=== PATIENT | male | born 1950 | race Caucasian/White ===

== ENCOUNTER → 2018-01-26 | Outpatient (CLI) | payer MEDICARE, BC, OTHER ==
[2018-01-26 11:06] LABS: Potassium 4.3 mmol/L (3.5-5.1)
== END | disposition home or self-care (01) ==
LOC: LABWHC1 10:23
PROVIDERS: ATTEND Internal Medicine Clinical Cardiac Electrophysiology
DX: I10 Essential (primary) hypertension (principal); E11.9 Type 2 diabetes mellitus without complications
CPT/HCPCS: 36415; 80048; 80061

== ENCOUNTER → 2018-02-19 | Outpatient (CLI) | payer MEDICARE, OTHER ==
[2018-02-19 15:33] LABS: Calcium 9.2 mg/dL (8.4-10.2); Potassium 4.8 mmol/L (3.5-5.1)
== END ==
LOC: LABWHC1 14:27
PROVIDERS: ATTEND Internal Medicine Clinical Cardiac Electrophysiology
DX: I10 Essential (primary) hypertension (principal)
CPT/HCPCS: 36415; 80048

== ENCOUNTER 2018-06-17 18:04 | Inpatient (IN) | payer MEDICARE, OTHER ==
[2018-06-17] MEDS ORDERED: ONDANSETRON 4 MG/2 ML VIAL IVP STA (19:08)
[2018-06-17] MEDS ORDERED: SODIUM CHLORIDE 0.9% 1,000 ML IV STA (19:08)
[2018-06-17] MEDS ORDERED: KETOROLAC 30 MG/ML 1 ML VIAL IVP STA (19:09)
--- NOTE | 2018-06-17 19:13 | ED ---
General Adult HPI - General Chief complaint: Abdominal Pain Stated complaint: Kidney stones Time Seen by Provider: 06/17/18 18:44 Source: patient, RN notes reviewed Mode of arrival: ambulatory Limitations: no limitations - History of Present Illness Initial comments: 67-year-old male presents to the emergency department for a chief complaint of left sided flank and lower abdominal pain times one day. Patient states this started yesterday. He states he does have a history of kidney stones and this does feel similar. He states the pain is radiating into his lower abdomen and was at one point radiating into the left testicle. Patient denies gross hematuria. He states he has also been dry heaving. He states that in the past he has had a severe hiatal hernia from dry heaving and wants to make sure this is not happening as his is concerned. He would also like to make sure the stone is small enough to pass. Patient has no other complaints at this time including shortness of breath, chest pain, nausea or vomiting, headache, or visual changes. - Related Data Home Medications Medication Instructions Recorded Confirmed Simvastatin [Zocor] 20 mg PO HS 04/24/14 06/17/18 Atenolol [Tenormin] 25 mg PO DAILY 06/17/18 06/17/18 Levothyroxine Sodium [Synthroid] 50 mcg PO DAILY 06/17/18 06/17/18 Lisinopril [Prinivil] 20 mg PO DAILY 06/17/18 06/17/18 Ondansetron Odt [Zofran Odt] 4 mg PO Q12H PRN 06/17/18 06/17/18 Pantoprazole Sodium [Protonix] 40 mg PO DAILY 06/17/18 06/17/18 Tamsulosin HCl [Flomax] 0.4 mg PO HS 06/17/18 06/17/18 metFORMIN HCL 1,000 mg PO BID 06/17/18 06/17/18 Allergies Allergy/AdvReac Type Severity Reaction Status Date / Time Latex, Natural Rubber Allergy Rash/Hives Verified 06/17/18 18:56 Review of Systems ROS Statement: Those systems with pertinent positive or pertinent negative responses have been documented in the HPI. ROS Other: All systems not noted in ROS Statement are negative. Past Medical History Past Medical History: Diabetes Mellitus, Hyperlipidemia, Osteoarthritis (OA), Pulmonary Embolus (PE) Additional Past Medical History / Comment(s): HIATAL HERNIA, ULCER, kidney stones History of Any Multi-Drug Resistant Organisms: None Reported Past Surgical History: Hernia Repair, Joint Replacement Additional Past Surgical History / Comment(s): right knee replaced, UMBILICAL HERNIA Past Anesthesia/Blood Transfusion Reactions: Motion Sickness, Postoperative Nausea & Vomiting (PONV) Past Psychological History: No Psychological Hx Reported Smoking Status: Never smoker Past Alcohol Use History: Rare Past Drug Use History: None Reported - Past Family History Son(s) Family Medical History: Deep Vein Thrombosis (DVT) General Exam Limitations: no limitations General appearance: alert, in no apparent distress Head exam: Present: atraumatic, normocephalic, normal inspection Eye exam: Present: normal appearance, PERRL, EOMI. Absent: scleral icterus, conjunctival injection, periorbital swelling ENT exam: Present: normal exam, mucous membranes moist Neck exam: Present: normal inspection, full ROM. Absent: tenderness, meningismus, lymphadenopathy Respiratory exam: Present: normal lung sounds bilaterally. Absent: respiratory distress, wheezes, rales, rhonchi, stridor Cardiovascular Exam: Present: regular rate, normal rhythm, normal heart sounds. Absent: systolic murmur, diastolic murmur, rubs, gallop, clicks GI/Abdominal exam: Present: soft, normal bowel sounds. Absent: distended, tenderness, guarding, rebound, rigid Back exam: Absent: CVA tenderness (R), CVA tenderness (L) Neurological exam: Present: alert, oriented X3, CN II-XII intact Psychiatric exam: Present: normal affect, normal mood Course Vital Signs 06/17/18 06/17/18 18:39 21:18 Temperature 98.7 F Pulse Rate 102 H 66 Respiratory 20 16 Rate Blood Pressure 160/79 128/75 O2 Sat by Pulse 96 96 Oximetry Medical Decision Making - Medical Decision Making 59-year-old male with a past medical history of diabetes, hyperlipidemia, pulmonary embolus, hiatal hernia, kidney stones presents for a chief complaint of left flank pain times one day. Patient states he had a similar episode 2 years ago. He states he has been "dry heaving" at home and is not able to tolerate liquids or take his medications. Patient did see his urologist 2 years ago, unable to recall name, but opted not to have lithotripsy done at that time. CBC does show a white count of 14.1, likely reactive. Creatinine 1.63 which is worse the patient's baseline, possibly related to patient's dehydration as he has not been able to tolerate liquids at home. Urine shows moderate blood with 12 red blood cells. No overt infection, urine will be cultured. CT of the abdomen and pelvis showed an obstructing 11 mm calculus at the left UVJ with moderate left-sided hydronephrosis and hydroureter. The obstruction is similar to old CT and could be same stone. Left perinephric edema is also worse and then old computed tomography scan. KUB was ordered for urology, no acute abdomen small calcification over the lower pole left kidney. Given patient's mildly elevated creatinine above baseline, inability to tolerate liquids at home, as well as 11 mm calculus with perinephric edema patient will be admitted for rehydration and urology consult. Discussed care with Dr Watson - Lab Data Result diagrams: 06/17/18 19:25 06/17/18 19:25 Lab Results 06/17/18 06/17/18 06/17/18 Range/Units 19:25 19:25 19:25 WBC 14.1 H (3.8-10.6) k/uL RBC 5.12 (4.30-5.90) m/uL Hgb 15.3 (13.0-17.5) gm/dL Hct 45.4 (39.0-53.0) % MCV 88.7 (80.0-100.0) fL MCH 29.8 (25.0-35.0) pg MCHC 33.6 (31.0-37.0) g/dL RDW 14.2 (11.5-15.5) % Plt Count 194 (150-450) k/uL Neutrophils % 89 % Lymphocytes % 7 % Monocytes % 4 % Eosinophils % 1 % Basophils % 0 % Neutrophils # 12.5 H (1.3-7.7) k/uL Lymphocytes # 0.9 L (1.0-4.8) k/uL Monocytes # 0.5 (0-1.0) k/uL Eosinophils # 0.1 (0-0.7) k/uL Basophils # 0.0 (0-0.2) k/uL Sodium 136 L (137-145) mmol/L Potassium 4.4 (3.5-5.1) mmol/L Chloride 103 (98-107) mmol/L Carbon Dioxide 24 (22-30) mmol/L Anion Gap 9 mmol/L BUN 26 H (9-20) mg/dL Creatinine 1.63 H (0.66-1.25) mg/dL Est GFR (CKD-EPI)AfAm 49 (>60 ml/min/1.73 sqM) Est GFR (CKD-EPI)NonAf 43 (>60 ml/min/1.73 sqM) Glucose 230 H (74-99) mg/dL Calcium 9.2 (8.4-10.2) mg/dL Total Bilirubin 0.6 (0.2-1.3) mg/dL AST 29 (17-59) U/L ALT 31 (21-72) U/L Alkaline Phosphatase 63 (38-126) U/L Total Protein 7.1 (6.3-8.2) g/dL Albumin 4.4 (3.5-5.0) g/dL Amylase 41 (30-110) U/L Lipase 38 (23-300) U/L Urine Color Yellow Urine Appearance Clear (Clear) Urine pH 5.5 (5.0-8.0) Ur Specific [place] 1.026 (1.001-1.035) Urine Protein 1+ H (Negative) Urine Glucose (UA) Trace H (Negative) Urine Ketones 1+ H (Negative) Urine Blood Moderate H (Negative) Urine Nitrite Negative (Negative) Urine Bilirubin Negative (Negative) Urine Urobilinogen <2.0 (<2.0) mg/dL Ur Leukocyte Esterase Negative (Negative) Urine RBC 12 H (0-5) /hpf Urine WBC 5 (0-5) /hpf Urine Mucus Few H (None) /hpf Disposition Clinical Impression: Ureterolithiasis, Acute kidney injury Disposition: ADMITTED IP TO THIS HOSP Condition: Good Referrals: Homar Browning MD [Primary Care Provider] - 1-2 days Time of Disposition: 21:38
[2018-06-17 19:38] LABS: Basophils % (A) 0 %; Eosinophils # (A) 0.1 k/uL (0-0.7); Eosinophils % (A) 1 %; HCT 45.4 % (39.0-53.0); HGB 15.3 gm/dL (13.0-17.5); Lymphocytes # (A) 0.9 k/uL (1.0-4.8); Lymphocytes % (A) 7 %; MCH 29.8 pg (25.0-35.0); MCHC 33.6 g/dL (31.0-37.0); MCV 88.7 fL (80.0-100.0); Mean Platelet Volume 7.2; Monocytes # (A) 0.5 k/uL (0-1.0); Monocytes % (A) 4 %; Neutrophils # (A) 12.5 k/uL (1.3-7.7); Neutrophils % (A) 89 %; Platelet Count 194 k/uL (150-450); RBC 5.12 m/uL (4.30-5.90); RDW 14.2 % (11.5-15.5); WBC 14.1 k/uL (3.8-10.6)
[2018-06-17 19:49] LABS: Albumin 4.4 g/dL (3.5-5.0); Calcium 9.2 mg/dL (8.4-10.2); Potassium 4.4 mmol/L (3.5-5.1); Total Bilirubin 0.6 mg/dL (0.2-1.3); Total Protein 7.1 g/dL (6.3-8.2)
--- NOTE | 2018-06-17 20:04 | XR ---
EXAMINATION TYPE: XR KUB DATE OF EXAM: 06/17/2018 COMPARISON: 05/24/2016 HISTORY: Flank pain TECHNIQUE: 2 views upright FINDINGS: There is no sign of intestinal obstruction or pneumoperitoneum. Fecal pattern is normal. Th ere is possible small calcification over the lower pole left kidney. IMPRESSION: Nonacute abdomen. No change.
[2018-06-17 20:05] LABS: Appearance,Urine Clear (Clear); Bilirubin,Urine Negative (Negative); Blood,Urine Moderate (Negative); Color,Urine Yellow; Glucose,Urine (UA) Trace (Negative); Ketones,Urine 1+ (Negative); Leukocyte Esterase,Urine Negative (Negative); Mucus,Urine Few /hpf; Nitrite,Urine Negative (Negative); PH, Urine 5.5 (5.0-8.0); Protein,Urine 1+ (Negative); RBC,Urine 12 /hpf (0-5); Specific Gravity,Urine 1.026 (1.001-1.035); Urobilinogen,Urine <2.0 mg/dL (<2.0); WBC,Urine 5 /hpf (0-5)
--- NOTE | 2018-06-17 20:21 | CT ---
EXAMINATION TYPE: CT abdomen pelvis wo con DATE OF EXAM: 06/17/2018 COMPARISON: 05/24/2016 HISTORY: Left side flank pain. CT DLP: 1686.4 mGycm Automated exposure control for dose reduction was used. TECHNIQUE: Helical acquisition of images was performed from the lung bases through the pelvis. FINDINGS: There is mild subsegmental atelectasis at the lung bases. Heart appears enlarged. There is surgical c lips at the gastric fundus. There is hiatal hernia noted. Liver shows no focal defect. Mild ducts are not dilated. Gallbladder appears normal. Spleen appears normal. There is no pancreatic mass. There is no adrenal mass. There is moderate left-sided hydronephrosis and proximal hydroureter. There is periureteral edema. There is 11 mm calculus at the left ureterovesical junction. There is left-si ded perinephric edema. There is right renal parapelvic cysts. There is 1.5 cm cortical cyst right kidney. There is no retrop eritoneal adenopathy. The bladder distends smoothly. There is no free fluid in the pelvis. There is no inguinal hernia. The re are multiple diverticula in the sigmoid colon. There is significant left-sided perinephric edema. There is no mesenteric edema. There is no evidence of free air. There are prostatic calcifications. L umbar spine is intact. I see no bony destructive process. There is bilateral L5 spondylolysis without spondylolisthesis. Appendix appears normal. IMPRESSION: OBSTRUCTING CALCULUS AT THE LEFT URETEROVESICAL JUNCTION WITH MODERATE LEFT-SIDED HYDRONEPHROSIS AND HYDROURETER. OBSTRUCTION IS SIMILAR TO OLD CT SCAN. THIS COULD BE THE SAME STONE STILL AT THE URETERO VESICAL JUNCTION. THERE IS A 1 CM CALCULUS INTERPOLAR LEFT KIDNEY. RIGHT RENAL PARAPELVIC CYSTS WITHOUT SIGN OF OBSTRUCTION. LEFT-SIDED PERINEPHRIC EDEMA APPEARS WORSE THAN OLD CT SCAN.
[2018-06-17] MEDS ORDERED: NALOXONE 0.4 MG/ML 1 ML VIAL IV PRN (21:38)
[2018-06-17] MEDS ORDERED: MORPHINE SULFATE 4 MG/ML SYRINGE IV PRN (21:38)
[2018-06-17] MEDS ORDERED: ONDANSETRON 4 MG/2 ML VIAL IVP PRN (21:38)
[2018-06-18 00:39] VITALS: BMI 43.5
[2018-06-18] MEDS: SODIUM CHLORIDE 0.9% 1,000 ML IV SCH ×2 (01:15→11:16)
[2018-06-18 07:32] LABS: Glucose,Whole Blood 113 mg/dL (75-99)
[2018-06-18] MEDS ORDERED: ONDANSETRON ODT 4 MG TAB PO PRN (10:25)
[2018-06-18] MEDS ORDERED: PANTOPRAZOLE 40 MG TABLET PO SCH (10:30)
[2018-06-18] MEDS ORDERED: ATENOLOL 25 MG TAB PO SCH (10:30)
[2018-06-18] MEDS ORDERED: LEVOTHYROXINE 50 MCG TAB PO SCH (10:45)
[2018-06-18 12:04] LABS: Glucose,Whole Blood 136 mg/dL (75-99)
[2018-06-18] MEDS ORDERED: INSULIN ASPART 100 UNIT/ML 1 ML 10 ML VIAL SQ SCH (12:30)
--- NOTE | 2018-06-18 14:24 | P.HPIM ---
History of Present Illness 61-year-old pleasant morbidly obese gentleman came in with the complaints of left flank pain sharp in nature radiating to the anterior abdomen found to have nephrolithiasis patient has history of nephrolithiasis in the past patient has nausea but no vomiting. Patient denied any fever chills patient and dysuria. Patient had history of nephrolithiasis in the past. Patient had a CAT scan which showed obstructing calculus at the left retrovesical junction with moderate left sided hydronephrosis and hydroureter which appears to be older and was present on the previous CAT scan as well as additionally there is a 1 cm calculus in the left kidney. Patient is pain-free now he may have already passed the stone. Patient used to follow with urology as an outpatient in the past. CT also showed right renal parapelvic cysts without any signs of obstruction left-sided perinephric edema. Patient does not have any some signs or symptoms of infection do not believe patient has UTI although patient has mild leukocyte esterase that was positive and some RBC in the urine from nephrolithiasis. She will not require any antibiotics will need urological evaluation. Patient baseline creatinine is around 1.39, no 1.6. Patient is on IV fluids at this time. Patient was told he has stage III chronic kidney disease from diabetic nephropathy. Review of Systems REVIEW OF SYSTEMS: CONSTITUTIONAL: No fever, no malaise, no fatigue. HEENT: No recent visual problems or hearing problems. Denied any sore throat. CARDIOVASCULAR: No chest pain, orthopnea, PND, no palpitations, no syncope. PULMONARY: No shortness of breath, no cough, no hemoptysis. GASTROINTESTINAL: No diarrhea, as mentioned in HPI NEUROLOGICAL: No headaches, no weakness, no numbness. HEMATOLOGICAL: Denies any bleeding or petechiae. GENITOURINARY: Denies any burning micturition, frequency, or urgency. MUSCULOSKELETAL/RHEUMATOLOGICAL: Denies any joint pain, swelling, or any muscle pain. ENDOCRINE: Denies any polyuria or polydipsia. The rest of the 14-point review of systems is negative. Past Medical History Past Medical History: Diabetes Mellitus, Hyperlipidemia, Osteoarthritis (OA), Pulmonary Embolus (PE) Additional Past Medical History / Comment(s): HIATAL HERNIA, ULCER, kidney stones History of Any Multi-Drug Resistant Organisms: None Reported Past Surgical History: Hernia Repair, Joint Replacement Additional Past Surgical History / Comment(s): right knee replaced, UMBILICAL HERNIA Past Anesthesia/Blood Transfusion Reactions: Motion Sickness, Postoperative Nausea & Vomiting (PONV) Past Psychological History: No Psychological Hx Reported Smoking Status: Never smoker Past Alcohol Use History: Rare Past Drug Use History: None Reported - Past Family History Son(s) Family Medical History: Deep Vein Thrombosis (DVT) Medications and Allergies Home Medications Medication Instructions Recorded Confirmed Type Simvastatin [Zocor] 20 mg PO HS 04/24/14 06/17/18 History Atenolol [Tenormin] 25 mg PO DAILY 06/17/18 06/17/18 History Levothyroxine Sodium [Synthroid] 50 mcg PO DAILY 06/17/18 06/17/18 History Lisinopril [Prinivil] 20 mg PO DAILY 06/17/18 06/17/18 History Ondansetron Odt [Zofran Odt] 4 mg PO Q12H PRN 06/17/18 06/17/18 History Pantoprazole Sodium [Protonix] 40 mg PO DAILY 06/17/18 06/17/18 History Tamsulosin HCl [Flomax] 0.4 mg PO HS 06/17/18 06/17/18 History metFORMIN HCL 1,000 mg PO BID 06/17/18 06/17/18 History sitaGLIPtin PHOSPHATE [Januvia] 100 mg PO DAILY #30 tab 06/18/18 Rx Allergies Allergy/AdvReac Type Severity Reaction Status Date / Time Latex, Natural Rubber Allergy Rash/Hives Verified 06/17/18 18:56 Physical Exam Vitals: Vital Signs Temp Pulse Pulse Resp BP BP Pulse Ox 06/18/18 08:00 17 06/18/18 07:00 97.3 F L 66 17 133/69 95 06/18/18 03:15 65 16 06/18/18 00:26 97.8 F 65 16 152/80 95 06/17/18 21:18 66 16 128/75 96 06/17/18 18:39 98.7 F 102 H 20 160/79 96 Intake and Output 06/17/18 06/18/18 06/18/18 22:59 06:59 14:59 Other: Voiding Method Toilet Toilet Weight 108.862 kg 130 kg PHYSICAL EXAMINATION: GENERAL: The patient is alert and oriented x3, not in any acute distress. Morbidly obese HEENT: Pupils are round and equally reacting to light. EOMI. No scleral icterus. No conjunctival pallor. Normocephalic, atraumatic. No pharyngeal erythema. No thyromegaly. CARDIOVASCULAR: S1 and S2 present. No murmurs, rubs, or gallops. PULMONARY: Chest is clear to auscultation, no wheezing or crackles. ABDOMEN: Soft, nontender, nondistended, normoactive bowel sounds. No palpable organomegaly. MUSCULOSKELETAL: No joint swelling or deformity. EXTREMITIES: No cyanosis, clubbing, or pedal edema. NEUROLOGICAL: Gross neurological examination did not reveal any focal deficits. SKIN: No rashes. Results CBC & Chem 7: 06/17/18 19:25 06/17/18 19:25 Labs: Abnormal Lab Results - Last 24 Hours (Table) 06/17/18 06/17/18 06/17/18 Range/Units 19:25 19:25 19:25 WBC 14.1 H (3.8-10.6) k/uL Neutrophils # 12.5 H (1.3-7.7) k/uL Lymphocytes # 0.9 L (1.0-4.8) k/uL Sodium 136 L (137-145) mmol/L BUN 26 H (9-20) mg/dL Creatinine 1.63 H (0.66-1.25) mg/dL Glucose 230 H (74-99) mg/dL POC Glucose (mg/dL) (75-99) mg/dL Urine Protein 1+ H (Negative) Urine Glucose (UA) Trace H (Negative) Urine Ketones 1+ H (Negative) Urine Blood Moderate H (Negative) Urine RBC 12 H (0-5) /hpf Urine Mucus Few H (None) /hpf 06/18/18 06/18/18 Range/Units 07:11 11:49 WBC (3.8-10.6) k/uL Neutrophils # (1.3-7.7) k/uL Lymphocytes # (1.0-4.8) k/uL Sodium (137-145) mmol/L BUN (9-20) mg/dL Creatinine (0.66-1.25) mg/dL Glucose (74-99) mg/dL POC Glucose (mg/dL) 113 H 136 H (75-99) mg/dL Urine Protein (Negative) Urine Glucose (UA) (Negative) Urine Ketones (Negative) Urine Blood (Negative) Urine RBC (0-5) /hpf Urine Mucus (None) /hpf Microbiology - Last 24 Hours (Table) 06/17/18 19:25 Urine Culture - Preliminary Urine,Voided Thrombosis Risk Factor Assmnt - Choose All That Apply Any of the Below Risk Factors Present?: Yes Each Factor Represents 1 point: Obesity (BMI >25), Swollen legs (current) Other Risk Factors: Yes Each Risk Factor Represents 2 Points: Age 61-74 years Each Risk Factor Represents 3 Points: Family history of DVT/PE, History of DVT/ PE Other congenital or acquired thrombophilia - If yes, enter type in comment: No Thrombosis Risk Factor Assessment Total Risk Factor Score: 10 Thrombosis Risk Factor Assessment Level: High Risk Assessment and Plan Plan: -Left Sided flank pain septic secondary to nephrolithiasis patient appears to have passed a stone although patient has epigastric of 1 cm. Patient had another stone which appears to be chronic with the hydronephrosis or hydroureter. A little pain of urology regarding the this hydronephrosis and hydroureter unsure whether any intervention will benefit his hydroureter the kidney function. Depending on the recommendations if no further intervention is being planned patient will be discharged today. I do not believe patient has urinary tract infection patient will not require any antibiotics at this time -History of nephrolithiasis in the past -Chronic kidney disease stage III with some acute renal failure probably from prerenal azotemia hold off lisinopril if patient is being discharged today patient can resume his lisinopril but will obtain basic metabolic profile in 3 days and is is to be fax it to PCP soft is. As of now patient will hold off his lisinopril because of his acute renal failure and patient cannot take metformin because of which chills which him to Januvia. Patient cannot take metformin because of the chronic kidney disease with creatinine of 1.6. -Type 2 diabetes mellitus: Management as mentioned above - obesity: Counseling was provided regarding his diet -Hypothyroidism -Hypertension -Gastroesophageal reflux disease -Hyperlipidemia
--- NOTE | 2018-06-18 14:24 | P.DS ---
Providers Date of admission: 06/17/18 21:38 Attending physician: Elena Nova Consults: 06/17/18 21:38 Consult Physician Stat Consulting Provider: Florentin De La Garza Consult Reason/Comments: 11mm ureterolithiasis, LUCA, Do you want consulting provider notified?: Yes Primary care physician: Homar Browning [facility] Course: Please refer to my HPI Patient Condition at Discharge: Good Plan - Discharge Summary Discharge Rx Participant: Yes New Discharge Prescriptions: New sitaGLIPtin PHOSPHATE [Januvia] 100 mg PO DAILY #30 tab Continue Simvastatin [Zocor] 20 mg PO HS Lisinopril [Prinivil] 20 mg PO DAILY Atenolol [Tenormin] 25 mg PO DAILY metFORMIN HCL 1,000 mg PO BID Pantoprazole Sodium [Protonix] 40 mg PO DAILY Levothyroxine Sodium [Synthroid] 50 mcg PO DAILY Tamsulosin HCl [Flomax] 0.4 mg PO HS Ondansetron Odt [Zofran ODT] 4 mg PO Q12H PRN PRN Reason: Nausea Discharge Medication List Simvastatin [Zocor] 20 mg PO HS 04/24/14 [History] Atenolol [Tenormin] 25 mg PO DAILY 06/17/18 [History] Levothyroxine Sodium [Synthroid] 50 mcg PO DAILY 06/17/18 [History] Lisinopril [Prinivil] 20 mg PO DAILY 06/17/18 [History] Ondansetron Odt [Zofran ODT] 4 mg PO Q12H PRN 06/17/18 [History] Pantoprazole Sodium [Protonix] 40 mg PO DAILY 06/17/18 [History] Tamsulosin HCl [Flomax] 0.4 mg PO HS 06/17/18 [History] metFORMIN HCL 1,000 mg PO BID 06/17/18 [History] sitaGLIPtin PHOSPHATE [Januvia] 100 mg PO DAILY #30 tab 06/18/18 [Rx] Follow up Appointment(s)/Referral(s): Homar Browning MD [Primary Care Provider] - 3 Days Ambulatory/Diagnostic Orders: Basic Metabolic Panel [LAB.AMB] Time Frame: 3 Days, Location: None Selected Discharge Disposition: HOME SELF-CARE
--- NOTE | 2018-06-18 15:19 | P.GSCN ---
History of Present Illness Consult date: 06/18/18 History of present illness: The patient is a 67-year-old gentleman in the hospital with left ureteral colic. The patient presented emergency room and had a computed tomography scan identifying an 11 mm ureterovesical junction stone as well as 2 large stones in the left lower pole calyx. The patient is symptomatic at this point in time. The patient has a history kidney stones in the past. He was seen in our office by a few years back for a distal ureteral stone which he passed spontaneously but never collected. Review of Systems All systems: negative - Genitourinary Reports as per HPI Past Medical History Past Medical History: Diabetes Mellitus, Hyperlipidemia, Osteoarthritis (OA), Pulmonary Embolus (PE) Additional Past Medical History / Comment(s): HIATAL HERNIA, ULCER, kidney stones History of Any Multi-Drug Resistant Organisms: None Reported Past Surgical History: Hernia Repair, Joint Replacement Additional Past Surgical History / Comment(s): right knee replaced, UMBILICAL HERNIA Past Anesthesia/Blood Transfusion Reactions: Motion Sickness, Postoperative Nausea & Vomiting (PONV) Past Psychological History: No Psychological Hx Reported Smoking Status: Never smoker Past Alcohol Use History: Rare Past Drug Use History: None Reported - Past Family History Son(s) Family Medical History: Deep Vein Thrombosis (DVT) Medications and Allergies Home Medications Medication Instructions Recorded Confirmed Type Simvastatin [Zocor] 20 mg PO HS 04/24/14 06/17/18 History Atenolol [Tenormin] 25 mg PO DAILY 06/17/18 06/17/18 History Levothyroxine Sodium [Synthroid] 50 mcg PO DAILY 06/17/18 06/17/18 History Lisinopril [Prinivil] 20 mg PO DAILY 06/17/18 06/17/18 History Ondansetron Odt [Zofran ODT] 4 mg PO Q12H PRN 06/17/18 06/17/18 History Pantoprazole Sodium [Protonix] 40 mg PO DAILY 06/17/18 06/17/18 History Tamsulosin HCl [Flomax] 0.4 mg PO HS 06/17/18 06/17/18 History metFORMIN HCL 1,000 mg PO BID 06/17/18 06/17/18 History sitaGLIPtin PHOSPHATE [Januvia] 100 mg PO DAILY #30 tab 06/18/18 Rx Allergies Allergy/AdvReac Type Severity Reaction Status Date / Time Latex, Natural Rubber Allergy Rash/Hives Verified 06/17/18 18:56 Surgical - Exam Vital Signs Temp Pulse Resp BP Pulse Ox 98.7 F 102 H 20 160/79 96 06/17/18 18:39 06/17/18 18:39 06/17/18 18:39 06/17/18 18:39 06/17/18 18:39 - General well developed, well nourished, no distress - Eyes PERRL - ENT no hearing loss - Neck trachea midline - Respiratory normal expansion, normal respiratory effort - Cardiovascular Rhythm: regular - Abdomen Abdomen: soft, non tender - Genitourinary normal penis with no external lesions, testicles present - Integumentary no rash, no growths - Neurologic normal coordination, normal sensation - Musculoskeletal normal posture - Psychiatric oriented to time, oriented to person, oriented to place, speech is normal, memory intact Results - Labs 06/17/18 19:25 06/17/18 19:25 Abnormal Lab Results - Last 24 Hours (Table) 06/17/18 06/17/18 06/17/18 Range/Units 19:25 19:25 19:25 WBC 14.1 H (3.8-10.6) k/uL Neutrophils # 12.5 H (1.3-7.7) k/uL Lymphocytes # 0.9 L (1.0-4.8) k/uL Sodium 136 L (137-145) mmol/L BUN 26 H (9-20) mg/dL Creatinine 1.63 H (0.66-1.25) mg/dL Glucose 230 H (74-99) mg/dL POC Glucose (mg/dL) (75-99) mg/dL Urine Protein 1+ H (Negative) Urine Glucose (UA) Trace H (Negative) Urine Ketones 1+ H (Negative) Urine Blood Moderate H (Negative) Urine RBC 12 H (0-5) /hpf Urine Mucus Few H (None) /hpf 06/18/18 06/18/18 Range/Units 07:11 11:49 WBC (3.8-10.6) k/uL Neutrophils # (1.3-7.7) k/uL Lymphocytes # (1.0-4.8) k/uL Sodium (137-145) mmol/L BUN (9-20) mg/dL Creatinine (0.66-1.25) mg/dL Glucose (74-99) mg/dL POC Glucose (mg/dL) 113 H 136 H (75-99) mg/dL Urine Protein (Negative) Urine Glucose (UA) (Negative) Urine Ketones (Negative) Urine Blood (Negative) Urine RBC (0-5) /hpf Urine Mucus (None) /hpf Microbiology - Last 24 Hours (Table) 06/17/18 19:25 Urine Culture - Preliminary Urine,Voided Diabetes panel 06/17/18 Range/Units 19:25 Sodium 136 L (137-145) mmol/L Potassium 4.4 (3.5-5.1) mmol/L Chloride 103 (98-107) mmol/L Carbon Dioxide 24 (22-30) mmol/L BUN 26 H (9-20) mg/dL Creatinine 1.63 H (0.66-1.25) mg/dL Glucose 230 H (74-99) mg/dL Calcium 9.2 (8.4-10.2) mg/dL AST 29 (17-59) U/L ALT 31 (21-72) U/L Alkaline Phosphatase 63 (38-126) U/L Total Protein 7.1 (6.3-8.2) g/dL Albumin 4.4 (3.5-5.0) g/dL Calcium panel 06/17/18 Range/Units 19:25 Calcium 9.2 (8.4-10.2) mg/dL Albumin 4.4 (3.5-5.0) g/dL Pituitary panel 06/17/18 Range/Units 19:25 Sodium 136 L (137-145) mmol/L Potassium 4.4 (3.5-5.1) mmol/L Chloride 103 (98-107) mmol/L Carbon Dioxide 24 (22-30) mmol/L BUN 26 H (9-20) mg/dL Creatinine 1.63 H (0.66-1.25) mg/dL Glucose 230 H (74-99) mg/dL Calcium 9.2 (8.4-10.2) mg/dL Adrenal panel 06/17/18 Range/Units 19:25 Sodium 136 L (137-145) mmol/L Potassium 4.4 (3.5-5.1) mmol/L Chloride 103 (98-107) mmol/L Carbon Dioxide 24 (22-30) mmol/L BUN 26 H (9-20) mg/dL Creatinine 1.63 H (0.66-1.25) mg/dL Glucose 230 H (74-99) mg/dL Calcium 9.2 (8.4-10.2) mg/dL Total Bilirubin 0.6 (0.2-1.3) mg/dL AST 29 (17-59) U/L ALT 31 (21-72) U/L Alkaline Phosphatase 63 (38-126) U/L Total Protein 7.1 (6.3-8.2) g/dL Albumin 4.4 (3.5-5.0) g/dL - Imaging CT scan - abdomen: report reviewed, image reviewed CT scan - pelvis: report reviewed, image reviewed Assessment and Plan Assessment: Impression: Left ureteral, large, calculus with obstruction, asymptomatic. Asymptomatic renal stones. Multiple medical illnesses Recommendations: Due to the size of the stone and the fact it is asymptomatic the stone needs to be followed closely. I do think it should be removed. I question whether sustained stone he had a few years back. Obtain a KUB prior to discharge. If this stone still present I'll recommend a ureteroscopic stone manipulation in the near future. I will follow up with this patient.
--- NOTE | 2018-06-18 15:46 | XR ---
EXAMINATION TYPE: XR KUB portable DATE OF EXAM: 06/18/2018 3:31 PM CLINICAL HISTORY: Left flank pain with history of nephrolithiasis TECHNIQUE: Single supine KUB image of the abdomen is obtained. COMPARISON: None. FINDINGS: There is a mildly dilated loop of transverse colon measuring up to 7.1 cm. Surgical changes are seen at the gastroesophageal junction. No dilated small bowel is noted. No discrete calculi are seen within the abdomen although there is obscuration by overlying bowel gas. Moderate right and mild left femoral acetabular arthropathy is seen. Degenerative changes of the lumbar spine. IMPRESSION: Mildly dilated solitary loop of transverse colon may represent colonic ileus.
[2018-06-18 16:05] VITALS: BP 149/75; PULSE 55; RESP 16; TEMP 97.2
[2018-06-18 19:08] LABS: Hemoglobin A1C 6.2 % (4.0-6.0)
[2018-06-18] MEDS ORDERED: TAMSULOSIN 0.4 MG CAP.ER.24H PO SCH (21:00)
[2018-06-18] MEDS ORDERED: ATORVASTATIN 10 MG TAB PO SCH (21:00)
== END 2018-06-18 16:41 | disposition home or self-care (01) | DRG 694 ==
LOC: EC 18:04 → 4SSUR 21:38
PROVIDERS: ADMIT Hospitalist; ATTEND Hospitalist
DX: N13.2 Hydronephrosis with renal and ureteral calculous obstruction (principal); Z68.41 Body mass index [BMI] 40.0-44.9, adult; N17.9 Acute kidney failure, unspecified; E11.22 Type 2 diabetes mellitus with diabetic chronic kidney disease; E66.01 Morbid (severe) obesity due to excess calories; N28.1 Cyst of kidney, acquired; N18.3 Chronic kidney disease, stage 3 (moderate); E86.0 Dehydration; K44.9 Diaphragmatic hernia without obstruction or gangrene; I12.9 Hypertensive chronic kidney disease with stage 1 through stage 4 chronic kidney disease, or unspecified chronic kidney disease; K21.9 Gastro-esophageal reflux disease without esophagitis; E03.9 Hypothyroidism, unspecified; E78.5 Hyperlipidemia, unspecified; M19.90 Unspecified osteoarthritis, unspecified site; Z79.890 Hormone replacement therapy; Z79.84 Long term (current) use of oral hypoglycemic drugs; Z79.899 Other long term (current) drug therapy; Z87.442 Personal history of urinary calculi; Z86.711 Personal history of pulmonary embolism; Z96.651 Presence of right artificial knee joint; Z91.040 Latex allergy status; Z83.2 Family history of diseases of the blood and blood-forming organs and certain disorders involving the immune mechanism
CPT/HCPCS: 36415; 74018; 74176; 80053; 81001; 82150; 83036; 83690; 85025; 87086; 96361; 96374; 96375; 99285

== ENCOUNTER 2018-06-19 00:51 | Emergency (ER) | payer MEDICARE, OTHER ==
[2018-06-19 01:05] VITALS: TEMP 98.4
[2018-06-19] MEDS ORDERED: ONDANSETRON 4 MG/2 ML VIAL IVP STA (01:42)
[2018-06-19] MEDS ORDERED: HYDROmorphone 1 MG/ML 1 ML SYRINGE IVP STA (01:42)
[2018-06-19] MEDS ORDERED: KETOROLAC 30 MG/ML 1 ML VIAL IVP STA (01:42)
--- NOTE | 2018-06-19 01:53 | ED ---
Abdominal Pain HPI - General Chief Complaint: Abdominal Pain Stated Complaint: Flank Pain Time Seen by Provider: 06/19/18 01:20 Source: patient Mode of arrival: ambulatory Limitations: no limitations - History of Present Illness Initial Comments: This patient is a 67-year-old man who presents to be evaluated for left flank pain. The pain had started on the previous day, he was seen here for this and admitted with a kidney stone. Patient had been seen by urology and they felt that stone may pass as his symptoms had markedly improved. The patient went home and then tonight had a recurrence of symptoms. He indicates the left flank. States the pain radiates toward the left groin. The pain is constant, sharp, and severe. Currently no worsening or relieving factors. He has had some associated nausea and vomiting. No fever or chills. No change in bowel movements. MD Complaint: flank pain -: hour(s) Location: L flank Radiation: LLQ Migration to: no migration Severity: severe Quality: sharp Consistency: constant Improves With: nothing Worsens With: nothing Associated Symptoms: nausea, vomiting - Related Data Home Medications Medication Instructions Recorded Confirmed Simvastatin [Zocor] 20 mg PO HS 04/24/14 06/17/18 Atenolol [Tenormin] 25 mg PO DAILY 06/17/18 06/17/18 Levothyroxine Sodium [Synthroid] 50 mcg PO DAILY 06/17/18 06/17/18 Lisinopril [Prinivil] 20 mg PO DAILY 06/17/18 06/17/18 Ondansetron Odt [Zofran ODT] 4 mg PO Q12H PRN 06/17/18 06/17/18 Pantoprazole Sodium [Protonix] 40 mg PO DAILY 06/17/18 06/17/18 Tamsulosin HCl [Flomax] 0.4 mg PO HS 06/17/18 06/17/18 metFORMIN HCL 1,000 mg PO BID 06/17/18 06/17/18 Previous Rx's Medication Instructions Recorded sitaGLIPtin PHOSPHATE [Januvia] 100 mg PO DAILY #30 tab 06/18/18 Promethazine [Phenergan] 25 mg PO Q6HR PRN #12 tablet 06/19/18 traMADol HCl [Ultram] 50 mg PO Q6H PRN #20 tab 06/19/18 Allergies Allergy/AdvReac Type Severity Reaction Status Date / Time Latex, Natural Rubber Allergy Rash/Hives Verified 06/19/18 01:05 Review of Systems ROS Statement: Those systems with pertinent positive or pertinent negative responses have been documented in the HPI. ROS Other: All systems not noted in ROS Statement are negative. Constitutional: Denies: fever, chills Respiratory: Denies: cough, dyspnea Cardiovascular: Denies: chest pain, palpitations, edema Gastrointestinal: Reports: abdominal pain, nausea, vomiting. Denies: diarrhea, hematemesis, melena, hematochezia Genitourinary: Denies: dysuria, frequency, hematuria, testicular pain Musculoskeletal: Denies: back pain Skin: Denies: rash Neurological: Denies: headache Past Medical History Past Medical History: Diabetes Mellitus, Hyperlipidemia, Osteoarthritis (OA), Pulmonary Embolus (PE) Additional Past Medical History / Comment(s): HIATAL HERNIA, ULCER, kidney stones History of Any Multi-Drug Resistant Organisms: None Reported Past Surgical History: Hernia Repair, Joint Replacement Additional Past Surgical History / Comment(s): right knee replaced, UMBILICAL HERNIA Past Anesthesia/Blood Transfusion Reactions: Motion Sickness, Postoperative Nausea & Vomiting (PONV) Past Psychological History: No Psychological Hx Reported Smoking Status: Never smoker Past Alcohol Use History: Rare Past Drug Use History: None Reported - Past Family History Son(s) Family Medical History: Deep Vein Thrombosis (DVT) General Exam Limitations: no limitations General appearance: alert, in no apparent distress Head exam: Present: atraumatic, normocephalic Respiratory exam: Present: normal lung sounds bilaterally. Absent: respiratory distress, wheezes, rales, rhonchi, stridor Cardiovascular Exam: Present: regular rate, normal rhythm, normal heart sounds. Absent: systolic murmur, diastolic murmur, rubs, gallop GI/Abdominal exam: Present: soft, normal bowel sounds. Absent: distended, tenderness, guarding, rebound, rigid, mass, pulsatile mass, hernia Extremities exam: Present: normal inspection, normal capillary refill. Absent: pedal edema, calf tenderness Back exam: Present: normal inspection. Absent: CVA tenderness (R), CVA tenderness (L) Neurological exam: Present: alert Skin exam: Present: warm, dry, intact, normal color. Absent: rash Course Vital Signs 06/19/18 06/19/18 06/19/18 01:02 01:54 02:15 Temperature 98.4 F Pulse Rate 71 66 Respiratory 18 20 Rate Blood Pressure 184/90 144/82 131/68 O2 Sat by Pulse 96 96 Oximetry 06/19/18 06/19/18 06/19/18 02:20 02:25 02:30 Temperature Pulse Rate Respiratory Rate Blood Pressure 131/68 131/68 131/68 O2 Sat by Pulse Oximetry 06/19/18 06/19/18 06/19/18 02:35 02:40 02:45 Temperature Pulse Rate Respiratory Rate Blood Pressure 131/68 131/68 131/68 O2 Sat by Pulse Oximetry 06/19/18 06/19/18 06/19/18 02:50 02:55 03:00 Temperature Pulse Rate Respiratory Rate Blood Pressure 131/62 131/62 131/62 O2 Sat by Pulse 95 Oximetry 06/19/18 06/19/18 06/19/18 03:05 03:10 03:15 Temperature Pulse Rate Respiratory Rate Blood Pressure 131/62 131/62 131/62 O2 Sat by Pulse 93 L 93 L Oximetry 06/19/18 06/19/18 06/19/18 03:20 03:25 03:30 Temperature Pulse Rate Respiratory Rate Blood Pressure 131/62 131/62 131/62 O2 Sat by Pulse 90 L 94 L 92 L Oximetry 06/19/18 06/19/18 06/19/18 03:35 03:40 03:45 Temperature Pulse Rate Respiratory Rate Blood Pressure 131/62 131/62 131/62 O2 Sat by Pulse 94 L 94 L 93 L Oximetry 06/19/18 06/19/18 06/19/18 03:50 03:55 04:00 Temperature Pulse Rate Respiratory Rate Blood Pressure 131/62 131/62 131/62 O2 Sat by Pulse 90 L 93 L 95 Oximetry 06/19/18 06/19/18 06/19/18 04:05 04:10 04:15 Temperature Pulse Rate Respiratory Rate Blood Pressure 131/62 131/62 131/62 O2 Sat by Pulse 94 L 93 L 92 L Oximetry 06/19/18 06/19/18 06/19/18 04:20 04:25 04:30 Temperature Pulse Rate Respiratory Rate Blood Pressure 131/62 131/62 131/62 O2 Sat by Pulse 93 L 91 L 95 Oximetry 06/19/18 06/19/18 06/19/18 04:35 04:40 04:45 Temperature Pulse Rate Respiratory Rate Blood Pressure 131/62 131/62 131/62 O2 Sat by Pulse 94 L 95 94 L Oximetry 06/19/18 06/19/18 06/19/18 04:50 04:55 05:15 Temperature Pulse Rate 78 Respiratory 18 Rate Blood Pressure 131/62 131/62 136/73 O2 Sat by Pulse 93 L 95 94 L Oximetry Medical Decision Making - Medical Decision Making This patient is 67-year-old man who comes in for recurrence of the left flank pain associated with recent kidney stone. Lab studies are rechecked. Patient given analgesic. Case discussed with Dr. Renee, who is the urologist who saw the patient when he was in the hospital yesterday. History of recommendations are incorporated. The patient is feeling better and would like to follow with Dr. Renee. We discussed return parameters as well as appropriate further care and follow-up. - Lab Data Result diagrams: 06/19/18 01:37 06/19/18 01:37 Lab Results 06/19/18 06/19/18 06/19/18 Range/Units 01:37 01:37 02:43 WBC 10.6 (3.8-10.6) k/uL RBC 4.52 (4.30-5.90) m/uL Hgb 13.6 (13.0-17.5) gm/dL Hct 40.3 (39.0-53.0) % MCV 89.2 (80.0-100.0) fL MCH 30.1 (25.0-35.0) pg MCHC 33.8 (31.0-37.0) g/dL RDW 14.5 (11.5-15.5) % Plt Count 155 (150-450) k/uL Neutrophils % 76 % Lymphocytes % 15 % Monocytes % 6 % Eosinophils % 2 % Basophils % 0 % Neutrophils # 8.0 H (1.3-7.7) k/uL Lymphocytes # 1.6 (1.0-4.8) k/uL Monocytes # 0.7 (0-1.0) k/uL Eosinophils # 0.2 (0-0.7) k/uL Basophils # 0.0 (0-0.2) k/uL Sodium 139 (137-145) mmol/L Potassium 4.4 (3.5-5.1) mmol/L Chloride 108 H (98-107) mmol/L Carbon Dioxide 21 L (22-30) mmol/L Anion Gap 10 mmol/L BUN 29 H (9-20) mg/dL Creatinine 2.11 H (0.66-1.25) mg/dL Est GFR (CKD-EPI)AfAm 36 (>60 ml/min/1.73 sqM) Est GFR (CKD-EPI)NonAf 31 (>60 ml/min/1.73 sqM) Glucose 122 H (74-99) mg/dL Calcium 8.6 (8.4-10.2) mg/dL Urine Color Yellow Urine Appearance Clear (Clear) Urine pH 5.0 (5.0-8.0) Ur Specific [place] 1.014 (1.001-1.035) Urine Protein Negative (Negative) Urine Glucose (UA) Negative (Negative) Urine Ketones Negative (Negative) Urine Blood Small H (Negative) Urine Nitrite Negative (Negative) Urine Bilirubin Negative (Negative) Urine Urobilinogen <2.0 (<2.0) mg/dL Ur Leukocyte Esterase Negative (Negative) Urine RBC 2 (0-5) /hpf Urine WBC 2 (0-5) /hpf Ur Squamous Epith Cells <1 (0-4) /hpf Urine Mucus Rare H (None) /hpf Disposition Clinical Impression: Calculus of kidney Disposition: HOME SELF-CARE Condition: Good Prescriptions: Promethazine [Phenergan] 25 mg PO Q6HR PRN #12 tablet PRN Reason: Vomiting traMADol HCl [Ultram] 50 mg PO Q6H PRN #20 tab PRN Reason: Pain Is patient prescribed a controlled substance at d/c from ED?: Yes When asked, does pt state using other controlled substances?: No If prescribed controlled substance>3 days was MAPS reviewed?: Prescribed <3 Days If opioid is for acute pain is fill amount 7 days or less?: Yes If Rx opioid, was Start Talking consent form obtained?: Yes Referrals: Homar Browning MD [Primary Care Provider] - 1-2 days Dg Renee MD [STAFF PHYSICIAN] - 1-2 days
[2018-06-19 01:57] LABS: Basophils % (A) 0 %; Eosinophils # (A) 0.2 k/uL (0-0.7); Eosinophils % (A) 2 %; HCT 40.3 % (39.0-53.0); HGB 13.6 gm/dL (13.0-17.5); Lymphocytes # (A) 1.6 k/uL (1.0-4.8); Lymphocytes % (A) 15 %; MCH 30.1 pg (25.0-35.0); MCHC 33.8 g/dL (31.0-37.0); MCV 89.2 fL (80.0-100.0); Mean Platelet Volume 7.3; Monocytes # (A) 0.7 k/uL (0-1.0); Monocytes % (A) 6 %; Neutrophils % (A) 76 %; Platelet Count 155 k/uL (150-450); RBC 4.52 m/uL (4.30-5.90); RDW 14.5 % (11.5-15.5); WBC 10.6 k/uL (3.8-10.6)
--- NOTE | 2018-06-19 02:05 | XR ---
EXAMINATION TYPE: XR KUB DATE OF EXAM: 06/19/2018 COMPARISON: Yesterday HISTORY: Kidney stone pain TECHNIQUE: 2 views upright FINDINGS: There is no sign of intestinal obstruction or pneumoperitoneum. There is a 5 mm calcificati on over the lower pole left kidney unchanged. There is 8 mm calcification at the floor of the pelvis on the left side of midline probably unchanged. IMPRESSION: No change compared to yesterday.
[2018-06-19 02:22] LABS: Calcium 8.6 mg/dL (8.4-10.2); Potassium 4.4 mmol/L (3.5-5.1)
[2018-06-19 03:25] LABS: Appearance,Urine Clear (Clear); Bilirubin,Urine Negative (Negative); Blood,Urine Small (Negative); Color,Urine Yellow; Glucose,Urine (UA) Negative (Negative); Ketones,Urine Negative (Negative); Leukocyte Esterase,Urine Negative (Negative); Mucus,Urine Rare /hpf; Nitrite,Urine Negative (Negative); Protein,Urine Negative (Negative); RBC,Urine 2 /hpf (0-5); Specific Gravity,Urine 1.014 (1.001-1.035); Squamous Epithelial Cell,Urine <1 /hpf (0-4); Urobilinogen,Urine <2.0 mg/dL (<2.0); WBC,Urine 2 /hpf (0-5)
[2018-06-19 05:18] VITALS: BP 136/73; PULSE 78; RESP 18
[2018-06-19] MEDS ORDERED: PROMETHAZINE INJ 25 MG in SODIUM CHLORIDE 0.9% 50 ML IVPB STA (05:31)
[2018-06-19] MEDS ORDERED: traMADol 50 MG STARTER PACK 3 TAB BTL PO STA (05:32)
== END 2018-06-19 06:40 | disposition home or self-care (01) ==
LOC: EC 00:51
DX: N20.0 Calculus of kidney (principal); E78.5 Hyperlipidemia, unspecified; E11.9 Type 2 diabetes mellitus without complications; M19.90 Unspecified osteoarthritis, unspecified site; Z91.040 Latex allergy status; Z79.84 Long term (current) use of oral hypoglycemic drugs; Z79.899 Other long term (current) drug therapy; Z96.651 Presence of right artificial knee joint
CPT/HCPCS: 99284; 96374; 96375 ×3; 36415; 80048; 85025; 81001; 74018; J2550; J2405; J1885; J1170

== ENCOUNTER → 2018-06-21 | Outpatient (CLI) | payer MEDICARE, OTHER ==
[2018-06-21 19:52] LABS: Anion Gap 9.4 mmol/L (4.00-12.00); Calcium 8.7 mg/dL (8.7-10.3); Carbon Dioxide 26.6 mmol/L (21.6-31.8); Potassium 4.5 mmol/L (3.5-5.5)
== END | disposition home or self-care (01) ==
LOC: LABWHC1 12:19
PROVIDERS: ATTEND Internal Medicine
DX: N17.9 Acute kidney failure, unspecified (principal)
CPT/HCPCS: 36415; 80048

== ENCOUNTER → 2019-06-29 | Outpatient (CLI) | payer MEDICARE, OTHER ==
--- NOTE | 2019-06-30 08:39 | CT ---
EXAMINATION TYPE: CT angio thor/abd pel aorta DATE OF EXAM: 06/29/2019 COMPARISON: 06/17/2018 and 04/21/2018 HISTORY: Follow up for thoracic aortic aneursym. CT DLP: 3044.2 mGycm CONTRAST: CTA thoracic and abdominal aorta with 3-D reconstruction is performed and without and with IV Contras t, patient injected with 100ml mL of Isovue 370. Contrast CTA of the thoracic and abdominal aorta was performed from the lung apex through the base of the pelvis. 3-D reconstruction imaging obtained at a separate workstation. CT Chest: THORACIC AORTA: Stable ascending thoracic aortic aneurysm at 4.1 cm AP dimension. Remainder of the th oracic aorta is of normal caliber. No dissection or mediastinal hematoma. Mild atheromatous changes are seen. LUNGS: The lungs are clear and free of infiltrate or atelectasis. No pulmonary nodule or mass is det ected. No pleural effusion or CT evidence of interstitial lung disease. MEDIASTINUM: The heart is not enlarged. No evidence for mediastinal mass or adenopathy. HILAR STRUCTURES: No evidence for mass. No hilar adenopathy is appreciated. OTHER: Fixed hiatal hernia redemonstrated. CONTRAST CT ABDOMEN AND PELVIS ABDOMINAL AORTA: No evidence for abdominal aortic aneurysm. No dissection. Iliac vessels are symmet sandra and patent. LIVER/GB- No significant abnormality is seen. PANCREAS- No significant abnormality is seen. SPLEEN- No significant abnormality is seen. ADRENALS- No significant abnormality is seen. KIDNEYS/BLADDER-1.2 cm nonobstructing calculus mid to lower pole left kidney. BOWEL- No Significant abnormality GENITAL ORGANS: No gross abnormality seen. LYMPH NODES- No greater than 1cm abdominal or pelvic lymph nodes areappreciated. OSSEOUS STRUCTURES- No significant abnormality is seen. OTHER- No significant abnormality is seen. IMPRESSION- 1. Stable ascending thoracic aortic aneurysm. 2. Nonobstructing calculus left kidney.
== END | disposition home or self-care (01) ==
LOC: RADCTMAIN 15:59
PROVIDERS: ATTEND Family Medicine
DX: I71.2 Thoracic aortic aneurysm, without rupture (principal)
CPT/HCPCS: 71275; 74174; Q9967

== ENCOUNTER → 2019-07-28 | Outpatient (CLI) | payer MEDICARE, OTHER ==
--- NOTE | 2019-07-28 16:09 | XR ---
EXAMINATION TYPE: XR cervical spine comp DATE OF EXAM: 07/28/2019 COMPARISON: None HISTORY: 68-year-old male with radiculopathy and left shoulder pain TECHNIQUE: 5 views FINDINGS: Facet and uncovertebral joint arthropathy throughout. On the left, mild bony neuroforaminal narrowing at C5-C6. On the right, moderate bony neuroforaminal narrowing at C3-C4, C4-C5, C5-C6, C6-C7, and C7 -T1. Moderate disc/endplate degenerative changes especially mid to lower cervical spine. Trace grade 1 anterolisthesis at C7-T1 on the swimmer's view. Normal odontoid view. IMPRESSION: 1. Moderate spondylotic change greatest in the mid to lower cervical spine. 2. Variable mild and moderate neuroforaminal stenoses as outlined above, especially moderate within t he mid to lower cervical spine on the right. 3. Degenerative grade 1 anterolisthesis at C7-T1.
--- NOTE | 2019-07-28 16:10 | XR ---
EXAMINATION TYPE: XR shoulder complete RT DATE OF EXAM: 07/28/2019 COMPARISON: NONE HISTORY: 68-year-old male shoulder pain TECHNIQUE: 3 views FINDINGS: Moderate degenerative joint space narrowing and marginal spurring at the acromioclavicular joint. The re is bony irregularity and some sclerosis of the greater tuberosity. Subacromial space is preserved. No acute fracture, subluxation, or dislocation. IMPRESSION: Moderate AC joint OA and bony changes suggesting underlying chronic rotator cuff tendinopathy. No acu te osseous abnormality seen.
== END | disposition home or self-care (01) ==
LOC: RADXRMAIN 14:32
PROVIDERS: ATTEND Family Medicine
DX: M48.02 Spinal stenosis, cervical region (principal); M43.12 Spondylolisthesis, cervical region; M47.23 Other spondylosis with radiculopathy, cervicothoracic region; M19.011 Primary osteoarthritis, right shoulder
CPT/HCPCS: 72050

== ENCOUNTER → 2019-08-24 | Outpatient (CLI) | payer MEDICARE, OTHER ==
--- NOTE | 2019-08-25 06:33 | MR ---
EXAMINATION TYPE: MR shoulder RT wo con DATE OF EXAM: 08/24/2019 COMPARISON: Right shoulder x-ray July 28, 2019. HISTORY: Right shoulder pain for 5 weeks per patient. TECHNIQUE: Multiplanar, multisequence imaging of the right shoulder is performed without contrast. FINDINGS: Examination is suboptimal as there is motion artifact degradation. Rotator Cuff: Small nondisplaced full-thickness tear involving the anterior fibers of the supraspinat us tendon at articular surface measuring 5 mm AP diameter by 6 mm transversely sagittal image 25 and coronal image 11. The infraspinatus tendon intact. Subscapularis tendon intact. Rotator cuff muscle b ulk preserved. Acromioclavicular Joint: Moderate to severe narrowing with moderate superior capsular hypertrophy. No significant spurring. Loss of underlying fat plane on coronal image 15. Distal acromion morphology u nremarkable. Glenohumeral Joint: Mild narrowing. No significant spurring. No significant effusion. Labrum: The labrum appears grossly intact given limitation of non-arthrogram study. Biceps Tendon: The long head of biceps is in normal location within bicipital groove. Bone marrow signal: No focal abnormal marrow signal is appreciated. Other: No additional significant abnormality is appreciated. IMPRESSION: 1. Small full-thickness tear involving the anterior one fourth the fibers of the distal supraspinatus tendon. 2. Moderate to advanced AC joint arthropathy with suggestion of underlying impingement. Correlate cli nically.
== END | disposition home or self-care (01) ==
LOC: RADMRIMAIN 16:00
PROVIDERS: ATTEND Family Medicine
DX: M75.121 Complete rotator cuff tear or rupture of right shoulder, not specified as traumatic (principal); M12.811 Other specific arthropathies, not elsewhere classified, right shoulder

== ENCOUNTER → 2019-09-15 | Outpatient (CLI) | payer MEDICARE, OTHER ==
[2019-09-15 10:02] LABS: Basophils % (A) 0 %; Eosinophils # (A) 0.4 k/uL (0-0.7); Eosinophils % (A) 5 %; HGB 14.2 gm/dL (13.0-17.5); Lymphocytes % (A) 24 %; MCH 29.8 pg (25.0-35.0); MCHC 33.1 g/dL (31.0-37.0); Mean Platelet Volume 7.6; Monocytes # (A) 0.4 k/uL (0-1.0); Monocytes % (A) 5 %; Neutrophils # (A) 5.1 k/uL (1.3-7.7); Neutrophils % (A) 63 %; Platelet Count 154 k/uL (150-450); RBC 4.78 m/uL (4.30-5.90)
[2019-09-15 10:20] LABS: Appearance,Urine Clear (Clear); Bilirubin,Urine Negative (Negative); Blood,Urine Negative (Negative); Color,Urine Yellow; Glucose,Urine (UA) Negative (Negative); Ketones,Urine Negative (Negative); Leukocyte Esterase,Urine Negative (Negative); Nitrite,Urine Negative (Negative); Protein,Urine Negative (Negative); Specific Gravity,Urine 1.017 (1.001-1.035); Urobilinogen,Urine <2.0 mg/dL (<2.0)
[2019-09-15 15:46] LABS: African American GFR (CKD) 71.1 (60.0-200.0); Albumin 4.1 g/dL (3.80-4.90); Albumin/Globulin Ratio 2.05 (1.60-3.17); BUN/Creat Ratio 23.33 Ratio (12.00-20.00); Calcium 9.2 mg/dL (8.7-10.3); Chol/HDL Ratio 2.42; Non-African American GFR(CKD) 61.3 (60.0-200.0); Potassium 4.3 mmol/L (3.5-5.5); Total Bilirubin 0.7 mg/dL (0.2-1.2); Total Protein 6.1 g/dL (6.2-8.2)
[2019-09-15 20:36] LABS: Hemoglobin A1C 5.6 % (4.0-6.0)
== END | disposition home or self-care (01) ==
LOC: LABWHC1 09:20
PROVIDERS: ATTEND Family Medicine
DX: E11.9 Type 2 diabetes mellitus without complications (principal)
CPT/HCPCS: 36415; 80053; 80061; 81003; 82043; 82570; 83036; 85025

== ENCOUNTER → 2020-06-12 | Outpatient (CLI) | payer MEDICARE, OTHER ==
[2020-06-12 09:38] LABS: HCT 43.9 % (39.0-53.0); HGB 14.7 gm/dL (13.0-17.5); MCH 30.4 pg (25.0-35.0); MCHC 33.5 g/dL (31.0-37.0); Mean Platelet Volume 7.4; Platelet Count 160 k/uL (150-450); RBC 4.82 m/uL (4.30-5.90); WBC 8.1 k/uL (3.8-10.6)
[2020-06-12 16:38] LABS: African American GFR (CKD) 70.6 (60.0-200.0); Anion Gap 2.6 mmol/L (4.00-12.00); Carbon Dioxide 28.4 mmol/L (21.6-31.8); Non-African American GFR(CKD) 60.9 (60.0-200.0); Potassium 4.2 mmol/L (3.5-5.5)
== END | disposition home or self-care (01) ==
LOC: LABWHC1 08:48
PROVIDERS: ATTEND Internal Medicine Clinical Cardiac Electrophysiology
DX: Z01.818 Encounter for other preprocedural examination (principal); I48.0 Paroxysmal atrial fibrillation
CPT/HCPCS: 36415; 80051; 82565; 84520; 85027

== ENCOUNTER → 2021-06-28 | Outpatient (CLI) | payer MEDICARE, OTHER ==
--- NOTE | 2021-06-28 11:33 | XR ---
EXAMINATION TYPE: XR lumbar spine 2 or 3V DATE OF EXAM: 06/28/2021 CLINICAL HISTORY: Low back pain and sciatica. TECHNIQUE: Frontal and lateral images of the lumbar spine are obtained. COMPARISON: CTA aorta June 29, 2019 FINDINGS: There are 5 lumbar type vertebral bodies redemonstrated. Bilateral pars defect L5 level se en better on CT are redemonstrated. There is slight grade 1 retrolisthesis L4 on L5 again seen. Verte bral body heights and disc space heights are maintained. Mild overlying arterial vascular calcificati on. There is a 7 mm lower pole left renal calculus redemonstrated. IMPRESSION: As above.
== END | disposition home or self-care (01) ==
LOC: RADXRMAIN 10:39
PROVIDERS: ATTEND Family Medicine
DX: M43.16 Spondylolisthesis, lumbar region (principal); N20.0 Calculus of kidney; I70.90 Unspecified atherosclerosis
CPT/HCPCS: 72100

== ENCOUNTER → 2021-12-06 | Outpatient (CLI) | payer MEDICARE, OTHER ==
--- NOTE | 2021-12-06 16:19 | XR ---
EXAMINATION TYPE: XR chest 2V DATE OF EXAM: 12/06/2021 COMPARISON: None INDICATION: Exposed to pneumonia, cough TECHNIQUE: Frontal and lateral views of the chest are obtained. FINDINGS: The heart size is normal. The pulmonary vasculature is normal. The lungs are clear. Patient's previous hiatal hernia appears smaller this time. IMPRESSION: 1. No acute pulmonary process. 2. Partial reduction of a previous large hiatal hernia.
== END | disposition home or self-care (01) ==
LOC: RADXRMAIN 13:25
PROVIDERS: ATTEND Family Medicine
DX: K44.9 Diaphragmatic hernia without obstruction or gangrene (principal)
CPT/HCPCS: 71046

== ENCOUNTER 2021-12-21 10:48 | Inpatient (IN) | payer MEDICARE, OTHER ==
[~2021-12-21 10:48] MED LIST: IV FLUID CONTINUATION 1,000 ML IV ONE; SODIUM CHLORIDE 0.9% 1,000 ML IV ONE
[2021-12-21] MEDS ORDERED: NITROGLYCERIN OINT 1 INCH/GM PACKET TOPICAL STA (10:51)
[2021-12-21] MEDS ORDERED: HEPARIN SODIUM 1,000 UN/ML (10ML VL) IV ONE (10:51)
[2021-12-21] MEDS ORDERED: NITROGLYCERIN SL TABS 0.4 MG TAB SUBLINGUAL STA (10:51)
[2021-12-21] MEDS ORDERED: SODIUM CHLORIDE 0.9% 500 ML 500 ML IV STA (10:51)
[2021-12-21] MEDS ORDERED: ATORVASTATIN 80 MG TAB PO STA (10:52)
--- NOTE | 2021-12-21 10:58 | ED ---
General Adult HPI - General Stated complaint: STEMI Time Seen by Provider: 12/21/21 10:48 Source: patient, RN notes reviewed, old records reviewed - History of Present Illness Initial comments: This is a 71-year-old male presents emergency room complaining of chest pain started about 45 minutes to an hour ago. Patient states the pain radiates to his right arm. Patient states she has no history of prior MIs or cardiac catheterizations. Patient states he is a diabetic with high blood pressure high cholesterol. Patient states he took aspirin and nitroglycerin on the way and in the nitroglycerin decreased his pain. Patient denies any recent fever chills or cough per patient denies abdominal pain patient states he was nauseous and did vomit.. Patient denies any swelling to the legs or calf tenderness. Patient states the pain is still in the right arm but the chest pain is almost gone. Patient also states she's mild short of breath. Patient denies any diaphoretic episodes. - Related Data Home Medications Medication Instructions Recorded Confirmed Simvastatin [Zocor] 20 mg PO HS 04/24/14 06/17/18 Levothyroxine Sodium [Synthroid] 50 mcg PO DAILY 06/17/18 06/17/18 Ondansetron Odt [Zofran ODT] 4 mg PO Q12H PRN 06/17/18 06/17/18 Pantoprazole Sodium [Protonix] 40 mg PO DAILY 06/17/18 06/17/18 Tamsulosin HCl [Flomax] 0.4 mg PO HS 06/17/18 06/17/18 atenoloL [Tenormin] 25 mg PO DAILY 06/17/18 06/17/18 lisinopriL [Prinivil] 20 mg PO DAILY 06/17/18 06/17/18 metFORMIN HCL [Glucophage] 1,000 mg PO BID 06/17/18 06/17/18 Previous Rx's Medication Instructions Recorded sitaGLIPtin PHOSPHATE [Januvia] 100 mg PO DAILY #30 tab 06/18/18 Promethazine [Phenergan] 25 mg PO Q6HR PRN #12 tablet 06/19/18 traMADol HCl [Ultram] 50 mg PO Q6H PRN #20 tab 06/19/18 Allergies Allergy/AdvReac Type Severity Reaction Status Date / Time Latex, Natural Rubber Allergy Rash/Hives Verified 12/21/21 10:54 Review of Systems ROS Statement: Those systems with pertinent positive or pertinent negative responses have been documented in the HPI. ROS Other: All systems not noted in ROS Statement are negative. Past Medical History Past Medical History: Diabetes Mellitus, Hyperlipidemia, Osteoarthritis (OA), Pulmonary Embolus (PE) Additional Past Medical History / Comment(s): HIATAL HERNIA, ULCER, kidney stones History of Any Multi-Drug Resistant Organisms: None Reported Past Surgical History: Hernia Repair, Joint Replacement Additional Past Surgical History / Comment(s): right knee replaced, UMBILICAL HERNIA Past Anesthesia/Blood Transfusion Reactions: Motion Sickness, Postoperative Nausea & Vomiting (PONV) Past Psychological History: No Psychological Hx Reported Past Alcohol Use History: Rare Past Drug Use History: None Reported - Past Family History Son(s) Family Medical History: Deep Vein Thrombosis (DVT) General Exam - General Exam Comments Initial Comments: GENERAL: Patient is well-developed and well-nourished. Patient is nontoxic and well- hydrated and is in mild distress. ENT: Neck is soft and supple. No significant lymphadenopathy is noted. Oropharynx i s clear. Moist mucous membranes. Neck has full range of motion without eliciting any pain. EYES: The sclera were anicteric and conjunctiva were pink and moist. Extraocular movements were intact and pupils were equal round and reactive to light. Eyelids were unremarkable. PULMONARY: Unlabored respirations. Good breath sounds bilaterally. No audible rales rhonchi or wheezing was noted. CARDIOVASCULAR: There is a regular rate and rhythm without any murmurs gallops or rubs. ABDOMEN: Soft and nontender with normal bowel sounds. SKIN: Skin is clear with no lesions or rashes and otherwise unremarkable. NEUROLOGIC: Patient is alert and oriented x3. Cranial nerves II through XII are grossly intact. Motor and sensory are also intact. Normal speech, volume and content. Symmetrical smile. MUSCULOSKELETAL: Normal extremities with adequate strength and full range of motion. No lower extremity swelling or edema. No calf tenderness. LYMPHATICS: No significant lymphadenopathy is noted PSYCHIATRIC: Normal psychiatric evaluation. 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 Patient also has ST segment depression in 1 and 2 as well as aVL. A STEMI was called overhead immediately prior to the patient's arrival. Dr. Smith was in the emergency department shortly after arrival I spoke with him and he agreed the patient needed to be taken to the catheterization lab. I started the patient heparin I gave the patient nitroglycerin sublingual as well as Nitropaste and gave the patient Lipitor as well. Patient was given aspirin in route. [facility] ad[facility] tted the patient wrote admitting orders. - Lab Data Result diagrams: 12/21/21 10:59 12/21/21 10:59 Critical Care Time Critical Care Time: Yes Total Critical Care Time: 30 Disposition Clinical Impression: ST elevation myocardial infarction (STEMI) Disposition[facility] Time of Disposition: 11:16
[2021-12-21 11:07] LABS: Basophils # (A) 0.1 k/uL (0-0.2); Basophils % (A) 1 %; Eosinophils # (A) 0.3 k/uL (0-0.7); Eosinophils % (A) 4 %; HCT 43.2 % (39.0-53.0); HGB 14.2 gm/dL (13.0-17.5); Lymphocytes # (A) 1.3 k/uL (1.0-4.8); Lymphocytes % (A) 18 %; MCH 31.3 pg (25.0-35.0); MCHC 32.8 g/dL (31.0-37.0); MCV 95.5 fL (80.0-100.0); Mean Platelet Volume 7.7; Monocytes # (A) 0.3 k/uL (0-1.0); Monocytes % (A) 5 %; Neutrophils # (A) 5.1 k/uL (1.3-7.7); Neutrophils % (A) 71 %; Platelet Count 184 k/uL (150-450); RBC 4.53 m/uL (4.30-5.90); RDW 14.5 % (11.5-15.5); WBC 7.1 k/uL (3.8-10.6)
--- NOTE | 2021-12-21 11:07 | XR ---
EXAMINATION TYPE: XR chest 1V DATE OF EXAM: 12/21/2021 HISTORY: Shortness of breath. COMPARISON: 24/06/2021 TECHNIQUE: Single view of the chest is submitted. FINDINGS: Demonstrated are scattered senescent parenchymal change. There is no evidence for focal infiltrate. Cardiomegaly with pulmonary venous congestion and mild interstitial edema suggested. Trace fluid with in the right minor fissure. Hilar and mediastinal structures are within normal limits. Degenerative changes are seen of the dorsal spine. IMPRESSION: 1. Cardiomegaly with pulmonary venous congestion and mild interstitial edema suggested. Trace fluid within the right minor fissure.
[2021-12-21] MEDS ORDERED: VERAPAMIL 2.5 MG/ML 2 ML AMP ONE (11:11)
[2021-12-21 11:16] LABS: Calcium 9.1 mg/dL (8.4-10.2); Magnesium 1.3 mg/dL (1.6-2.3); Partial Thromboplastin Time 23.8 sec (22.0-30.0); Potassium 4.5 mmol/L (3.5-5.1); Prothrombin Time 10.9 sec (9.0-12.0); Total Bilirubin 0.5 mg/dL (0.2-1.3); Total Protein 6.5 g/dL (6.3-8.2)
[2021-12-21] MEDS ORDERED: LIDOCAINE 1% INJ 10MG/ML (20 ML MDV) SQ ONE (11:27)
[2021-12-21] MEDS ORDERED: VERAPAMIL SYRINGE (5 MG/10 ML) INTRAARTER ONE (11:29)
[2021-12-21] MEDS: MIDAZOLAM 2 MG/2 ML VIAL IV ONE ×2 (11:30→12:02)
[2021-12-21] MEDS ORDERED: HEPARIN SODIUM 1,000 UN/ML (10ML VL) ONE (11:31)
[2021-12-21] MEDS: HEPARIN SODIUM 1,000 UN/ML (10ML VL) IV ONE ×3 (11:31→11:56)
[2021-12-21] MEDS ORDERED: TICAGRELOR 90 MG TAB ONE (11:39)
[2021-12-21] MEDS ORDERED: TICAGRELOR 90 MG TAB PO ONE (11:40)
[2021-12-21] MEDS ORDERED: fentaNYL (PF) 50 MCG/ML 2 ML AMP ONE (11:46)
[2021-12-21] MEDS ORDERED: fentaNYL (PF) 50 MCG/ML 2 ML AMP IV ONE (11:47)
[2021-12-21] MEDS ORDERED: niCARdipine 25 MG/10 ML VIAL ONE (11:49)
[2021-12-21] MEDS: niCARdipine Syringe (1,000 mcg/10 mL) INTRACORON ONE ×3 (11:50→12:13)
[2021-12-21] MEDS: NITROGLYCERIN 1000MCG/10ML SYRINGE INTRACORON ONE ×2 (12:00→12:12)
[2021-12-21] MEDS ORDERED: IOPAMIDOL-370 125ML BTL INJ ONE (12:07)
[2021-12-21] MEDS ORDERED: TIROFIBAN 12.5MG-250ML NS 250 ML IV ONE (12:15)
[2021-12-21] MEDS ORDERED: TIROFIBAN BOLUS 12.5MG/250 ML BAG IV ONE (12:21)
[2021-12-21] MEDS ORDERED: IOPAMIDOL-370 100ML BTL INJ ONE (12:26)
[2021-12-21] MEDS ORDERED: ZOLPIDEM 5 MG TAB PO PRN (12:31)
[2021-12-21] MEDS ORDERED: RX INFO: IV CONTRAST WAS GIVEN 1 EACH MISC MISCELLANE PRN (12:31)
[2021-12-21] MEDS ORDERED: ATROPINE SULFATE 0.1 MG/ML 10ML SYRINGE IV PRN (12:31)
[2021-12-21] MEDS ORDERED: MAG HYDROX/AL HYDROX/SIMETH 30 ML CUP PO PRN (12:31)
[2021-12-21] MEDS ORDERED: NITROGLYCERIN SL TABS 0.4 MG TAB SUBLINGUAL PRN (12:31)
--- NOTE | 2021-12-21 12:35 | P.CRDCN ---
History of Present Illness History of present illness: This is Dr. Smith dictating a consult on this patient The patient was interviewed and examined IMPRESSION / ASSESSMENT: Acute ST elevation AL, inferior posterior lateral Hypertension Diabetes2 PLAN: Antiplatelet therapy, IV heparin, statins Proceed to label designer immediately for coronary intervention Resume home medications Maximize beta blockers Dual antiplatelet therapy Maximize statins, switched to atorvastatin HPI This morning the patient had very strange symptoms. He complained of numbness and tingling and feeling strange that started from his knees and went up further to his belly and chest and into his neck and right arm He was a little dizzy He denied chest discomfort A 12-lead EKG showed ST elevation in the field The ER was notified here and he was brought in immediately By the time I saw him he was feeling a lot better His ST elevations was at his symptoms were better He is experiencing right arm discomfort ROS: No fever chills or rigors, no cough, phlegm or expectoration, no nausea, vomiting or diarrhea, no hematuria, dysuria, no musculoskeletal complaints, no strokes or seizures, no skin lesions. EXAMINATION: Afebrile 98.1F pulse rate in the 60s Blood pressure elevated 166/99 154/99 Normal respirations Sitting comfortably in bed No JVD Normal heart sounds no murmurs Clear lungs no rhonchi no crackles no respiratory distress No lower extremity edema REVIEW OF LABS, ECG & MEDICAL DATA Twelve-lead EKG shows ST elevations in the inferior leads, ST elevation in V4 through V6, ST depression in V1 and V2 Consistent with infero-posterior lateral acute AL ST depression in aVL Loss of ST segment concave 30 in lead 1 Past Medical History Past Medical History: Diabetes Mellitus, Hyperlipidemia, Osteoarthritis (OA), Pulmonary Embolus (PE) Additional Past Medical History / Comment(s): HIATAL HERNIA, ULCER, kidney stones History of Any Multi-Drug Resistant Organisms: None Reported Past Surgical History: Hernia Repair, Joint Replacement Additional Past Surgical History / Comment(s): right knee replaced, UMBILICAL HERNIA Past Anesthesia/Blood Transfusion Reactions: Motion Sickness, Postoperative Nausea & Vomiting (PONV) Past Psychological History: No Psychological Hx Reported Past Alcohol Use History: Rare Past Drug Use History: None Reported - Past Family History Son(s) Family Medical History: Deep Vein Thrombosis (DVT) Medications and Allergies Home Medications Medication Instructions Recorded Confirmed Type Simvastatin [Zocor] 20 mg PO HS 04/24/14 06/17/18 History Levothyroxine Sodium [Synthroid] 50 mcg PO DAILY 06/17/18 06/17/18 History Ondansetron Odt [Zofran ODT] 4 mg PO Q12H PRN 06/17/18 06/17/18 History Pantoprazole Sodium [Protonix] 40 mg PO DAILY 06/17/18 06/17/18 History Tamsulosin HCl [Flomax] 0.4 mg PO HS 06/17/18 06/17/18 History atenoloL [Tenormin] 25 mg PO DAILY 06/17/18 06/17/18 History lisinopriL [Prinivil] 20 mg PO DAILY 06/17/18 06/17/18 History metFORMIN HCL [Glucophage] 1,000 mg PO BID 06/17/18 06/17/18 History sitaGLIPtin PHOSPHATE [Januvia] 100 mg PO DAILY #30 tab 06/18/18 Rx Promethazine [Phenergan] 25 mg PO Q6HR PRN #12 tablet 06/19/18 Rx traMADol HCl [Ultram] 50 mg PO Q6H PRN #20 tab 06/19/18 Rx Allergies Allergy/AdvReac Type Severity Reaction Status Date / Time Latex, Natural Rubber Allergy Rash/Hives Verified 12/21/21 10:54 Physical Exam Vitals: Vital Signs Temp Pulse Pulse Resp BP Pulse Ox 12/21/21 11:42 98.1 F 63 18 154/99 98 12/21/21 10:56 64 12/21/21 10:54 63 18 154/99 98 12/21/21 10:48 98.1 F 65 18 166/99 96 Intake and Output 12/20/21 12/21/21 12/21/21 22:59 06:59 14:59 Intake Total 575 Output Total 325 Balance 250 Intake: IV 575 Output: Urine 325 Other: Weight 102.965 kg Results 12/21/21 10:59 12/21/21 10:59 Cardiac Enzymes 12/21/21 12/21/21 Range/Units 10:59 10:59 AST 26 (17-59) U/L Troponin I 0.489 H* (0.000-0.034) ng/mL Coagulation 12/21/21 Range/Units 10:59 PT 10.9 (9.0-12.0) sec APTT 23.8 (22.0-30.0) sec CBC 12/21/21 Range/Units 10:59 WBC 7.1 (3.8-10.6) k/uL RBC 4.53 (4.30-5.90) m/uL Hgb 14.2 (13.0-17.5) gm/dL Hct 43.2 (39.0-53.0) % Plt Count 184 (150-450) k/uL Comprehensive Metabolic Panel 12/21/21 Range/Units 10:59 Sodium 139 (137-145) mmol/L Potassium 4.5 (3.5-5.1) mmol/L Chloride 106 (98-107) mmol/L Carbon Dioxide 26 (22-30) mmol/L BUN 25 H (9-20) mg/dL Creatinine 1.23 (0.66-1.25) mg/dL Glucose 160 H (74-99) mg/dL Calcium 9.1 (8.4-10.2) mg/dL AST 26 (17-59) U/L ALT 16 (4-49) U/L Alkaline Phosphatase 76 (38-126) U/L Total Protein 6.5 (6.3-8.2) g/dL Albumin 4.0 (3.5-5.0) g/dL Current Medications Generic Name Dose Route Start Last Admin Trade Name Freq PRN Reason Stop Dose Admin Al Hydroxide/Mg Hydroxide 30 ml 12/21/21 12:31 Mag Hydrox/Al Hydrox/Simeth 30 Ml Cup PO Q4HR PRN Heartburn Aspirin 81 mg 12/22/21 09:00 Aspirin 81 Mg PO DAILY [facility] Atorvastatin Calcium 80 mg 12/21/21 21:00 Atorvastatin 80 Mg Tab PO HS ISMA Atropine Sulfate 0.5 mg 12/21/21 12:31 Atropine Sulfate 0.1 Mg/Ml 10ml Syringe IV ONCE PRN Symptomatic Bradycardia Sodium Chloride 1,000 ml/ IV 1,000 mls @ 75 mls/hr 12/21/21 12:45 Solution IV 12/21/21 18:46 .[id number] ISMA Metoprolol Tartrate 25 mg 12/21/21 21:00 Metoprolol Tartrate 25 Mg Tab PO BID [facility] Miscellaneous Information 1 each 12/21/21 12:31 Rx Info: Iv Contrast Was Given 1 Each Misc MISCELLANE 07/18/22 12:31 DAILY PRN Per Protocol Nitroglycerin 0.4 mg 12/21/21 12:31 Nitroglycerin Sl Tabs 0.4 Mg Tab SUBLINGUAL Q5M PRN Chest Pain Ticagrelor 90 mg 12/21/21 21:00 Ticagrelor 90 Mg Tab PO BID ISMA Protocol Zolpidem Tartrate 5 mg 12/21/21 12:31 Zolpidem 5 Mg Tab PO HS PRN Insomnia Intake and Output 12/20/21 12/21/21 12/21/21 22:59 06:59 14:59 Intake Total 575 Output Total 325 Balance 250 Intake: IV 575 Output: Urine 325 Other: Weight 102.965 kg Patient Weight 12/22/21 06:59 Weight 102.965 kg 12/21/21 10:59 12/21/21 10:59
[2021-12-21] MEDS ORDERED: SODIUM CHLORIDE 0.9% 1,000 ML in EMPTY BAG 1 BAG IV SCH (12:45)
--- NOTE | 2021-12-21 12:46 | P.PCN ---
Date of Procedure: 12/21/21 Operative Findings: CARDIAC CATHETERIZATION AND PERCUTANEOUS CORONARY INTERVENTION PERFORMING PHYSICIAN: Christopher Pendleton MD, VI PROCEDURE PERFORMED: 1. Selective right and left coronary angiogram 2. Successful stenting of the first obtuse marginal branch of the LCx using 2.5 x 18 mm Xience KATIE which with an excellent angiographic results 3. Aspiration thrombectomy from the left circumflex INDICATION: This is a 71-year-old gentleman with diabetes and hypertension and dyslipidemia presented to the emergency department was chest discomfort started within the last 12 hours. He underwent an EKG in the ER and that showed inferoposterior ST segment elevation myocardial infarction. 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 The right radial artery was cannulated using micropuncture technique, the micropuncture wire passed easily then I placed 6-Estonian sheath. Subsequently give the patient 4000 use of heparin intravenous and 2 mg of verapamil intra- arterial. Selective right and left coronary angiogram performed. Selective right coronary angiogram was initially performed using JR4 catheter but we could not opacify the artery well and finally after I did angioplasty of the left circumflex I did selective right coronary artery angiogram using an a.l. 0.75 catheter. Selective left coronary angiogram was performed using JL 3.5 catheters. Subsequently I did intervene on the left circumflex. The procedure was completed without any complication SELECTIVE CORONARY ANGIOGRAM: The right coronary artery: Is a large caliber vessel and is dominant vessel. The RCA appears to be angiographically normal. It has posterior takeoff. Distally bifurcates into PDA and PLV branches both appeared to be angiographically normal. Left main: It is angiographically normal. Bifurcates into an LCx and LAD The left circumflex: Is a large caliber vessel. The LCx proximally has mild disease only. It gives rises into an large OM branch which trifurcates into 3 subbranches. This OM branch is 100% occluded in the midportion. The left anterior descending artery: The LAD is a large caliber vessel. The proximal LAD is angiographically normal. The mid LAD has a tubular lesion appeared to be in the range of 40%. The LAD distally appears to be angiographically normal. LAD gives rises into the first and second diagonal branches both appeared to have mild disease only. PCI OF THE LCx/OM: Anticoagulation was initiated and continued using heparin with continuous ACT monitoring. Subsequently I did engage the left main using JL 3.5 guiding catheter. I did wire the OM1 using a run-through wire. Attempting doing aspiration thrombectomy was unsuccessful because the left circumflex is very tortuous and the aspiration catheter would not cross the LCx in the proximal portion. After that attempting doing balloon angioplasty also was unsuccessful because of tortuosity in the proximal left circumflex coronary artery. At that point I decided to do wire the left circumflex using a shaylee wire which was initially a run-through wire and a shaylee wire was whisper wire. With that I was able to do balloon angioplasty of the left circumflex using initially 3 mm balloon and after that 2.75 mm balloon. The following angiogram showed that the lesion in OM1 is actually by the bifurcation of 2 major subbranches. At that point I decided to wire the upper subbranch using the run-through wire and the lower subbranch using a whisper wire. Balloon angioplasty of the upper subbranch was also performed using 2.5 mm balloon. After that I did stenting the lower subbranch using 2.5 x 18 mm stent where the stent was positioned under fluoroscopy guidance and deployed under fluoroscopy guidance. After that I pulled the wire from the upper subbranch and the following angiogram showed good angiographic results with JAMES-3 flow in the lower subbranch at JAMES 2 flow in the upper subbranch. There was good size residual thrombus and because of that I decided to start the patient on Aggrastat. After that I did go back again and I was able to engage the RCA using an a.l. 0.75 guiding catheter and I was able to inject and opacify the right coronary artery. The procedure was completed without any complication. CONCLUSION: #[address] elevation myocardial infarction #2 Acute thrombotic occlusion of a large first OM branch with very large thrombus burden #3 Successful stenting of first OM using 2.5 x 18 mm Xience KATIE. I #4 ntermediate lesion involving the left anterior descending artery in the midportion POSTPROCEDURE MANAGEMENT: #1 dual antiplatelet therapy using aspirin as well as Brilinta for 12 month #2 The patient was started on Aggrastat to be continued for a total of 18 hours #3 Aggressive cholesterol control #4 An echocardiogram with Doppler
[2021-12-21 12:51] LABS: Glucose,Whole Blood 125 mg/dL (70-110)
[2021-12-21] MEDS ORDERED: MORPHINE SULFATE 2 MG/ML SYRINGE IVP PRN (13:52)
[2021-12-21] MEDS: NITROGLYCERIN OINT 1 INCH/GM PACKET TOPICAL SCH ×3 (14:06→23:47)
[2021-12-21 14:43] VITALS: BMI 34.4
[2021-12-21] MEDS: TIROFIBAN 12.5MG-250ML NS 250 ML IV SCH (17:22)
[2021-12-21] MEDS: TICAGRELOR 90 MG TAB PO SCH (20:07)
[2021-12-21] MEDS: METOPROLOL TARTRATE 25 MG TAB PO SCH (20:07)
[2021-12-21] MEDS: ATORVASTATIN 80 MG TAB PO SCH (20:07)
[2021-12-21 20:39] LABS: Glucose,Whole Blood 151 mg/dL (70-110)
[2021-12-22 02:17] LABS: Basophils # (A) 0.1 k/uL (0-0.2); Basophils % (A) 1 %; Eosinophils # (A) 0.3 k/uL (0-0.7); Eosinophils % (A) 2 %; HCT 39.9 % (39.0-53.0); HGB 12.8 gm/dL (13.0-17.5); Lymphocytes # (A) 1.6 k/uL (1.0-4.8); Lymphocytes % (A) 13 %; MCV 93.6 fL (80.0-100.0); Mean Platelet Volume 7.7; Monocytes # (A) 0.7 k/uL (0-1.0); Monocytes % (A) 6 %; Neutrophils # (A) 9.2 k/uL (1.3-7.7); Neutrophils % (A) 77 %; Platelet Count 188 k/uL (150-450); RBC 4.26 m/uL (4.30-5.90); RDW 14.2 % (11.5-15.5); WBC 11.9 k/uL (3.8-10.6)
[2021-12-22 02:40] LABS: Calcium 8.6 mg/dL (8.4-10.2); Potassium 3.7 mmol/L (3.5-5.1)
[2021-12-22 03:33] LABS: Magnesium 1.2 mg/dL (1.6-2.3)
[2021-12-22] MEDS: MAGNESIUM SULFATE-D5W PMX 1 GM in DEXTROSE/WATER 1 100ML.BAG IVPB SCH ×2 (04:20→05:19)
[2021-12-22] MEDS: TIROFIBAN 12.5MG-250ML NS 250 ML IV SCH (05:18)
[2021-12-22] MEDS: NITROGLYCERIN OINT 1 INCH/GM PACKET TOPICAL SCH ×4 (05:19→23:58)
--- NOTE | 2021-12-22 09:10 | P.HPIM ---
History of Present Illness This is a pleasant 71 years old male with past medical history of hypothyroidism, hypertension, diabetes mellitus type 2, GERD, benign prostatic hypertrophy area Patient presents because of acute chest pain found to have ST elevation myocardial infarction, patient has been evaluated by customs inspector and he underwent emergent cardiac cath and PCI to [facility] Currently patient lying in bed comfortable, he denies chest pain or dyspnea, no abdominal pain. No urinary complaints, no fever or swelling. He denies smoking, alcohol or illicit tracts. His primary doctor is Dr. Browning who supposed to see him tomorrow for follow-up appointment and check his sugar status Vitals are stable. unremarkable cbc, inr, bmp and liver enzymes. magnesium 1.3 troponin elevated 0.48. Review of Systems Review of systems CONSTITUTIONAL: No fever, no malaise, no fatigue. HEENT: No recent visual problems or hearing problems. Denied any sore throat. CARDIOVASCULAR: No orthopnea, PND, no palpitations, no syncope. PULMONARY: No shortness of breath, no cough, no hemoptysis. GASTROINTESTINAL: No diarrhea, no nausea, no vomiting, no abdominal pain. Normoactive bowel sounds. NEUROLOGICAL: No headaches, no weakness, no numbness. HEMATOLOGICAL: Denies any bleeding or petechiae. GENITOURINARY: Denies any burning micturition, frequency, or urgency. MUSCULOSKELETAL/RHEUMATOLOGICAL: Denies any joint pain, swelling, or any muscle pain. ENDOCRINE: Denies any polyuria or polydipsia. Past Medical History Past Medical History: Diabetes Mellitus, Hyperlipidemia, Osteoarthritis (OA), Pulmonary Embolus (PE) Additional Past Medical History / Comment(s): HIATAL HERNIA, ULCER, kidney stones History of Any Multi-Drug Resistant Organisms: None Reported Past Surgical History: Hernia Repair, Joint Replacement Additional Past Surgical History / Comment(s): right knee replaced, UMBILICAL HERNIA Past Anesthesia/Blood Transfusion Reactions: Motion Sickness, Postoperative Nausea & Vomiting (PONV) Smoking Status: Never smoker - Past Family History Son(s) Family Medical History: Deep Vein Thrombosis (DVT) Medications and Allergies Home Medications Medication Instructions Recorded Confirmed Type Simvastatin [Zocor] 20 mg PO HS 04/24/14 12/21/21 History Levothyroxine Sodium [Synthroid] 50 mcg PO DAILY 06/17/18 12/21/21 History Ondansetron Odt [Zofran ODT] 4 mg PO Q12H PRN 06/17/18 12/21/21 History Pantoprazole Sodium [Protonix] 40 mg PO DAILY 06/17/18 12/21/21 History Tamsulosin HCl [Flomax] 0.8 mg PO HS 06/17/18 12/21/21 History atenoloL [Tenormin] 25 mg PO DAILY 06/17/18 12/21/21 History lisinopriL [Prinivil] 20 mg PO DAILY 06/17/18 12/21/21 History metFORMIN HCL [Glucophage] 1,000 mg PO BID 06/17/18 12/21/21 History sitaGLIPtin PHOSPHATE [Januvia] 100 mg PO DAILY #30 tab 06/18/18 12/21/21 Rx Meloxicam [Mobic] 15 mg PO DAILY 12/21/21 12/21/21 History traMADol HCl [Ultram] 50 mg PO BID PRN 12/21/21 12/21/21 History Allergies Allergy/AdvReac Type Severity Reaction Status Date / Time Latex, Natural Rubber Allergy Rash/Hives Verified 12/21/21 10:54 Physical Exam Vitals: Vital Signs Temp Pulse Pulse Resp BP Pulse Ox 12/22/21 09:00 65 10 L 97 12/22/21 08:00 97.6 F 64 12 123/84 96 12/22/21 07:00 64 12 95 12/22/21 06:00 52 L 16 134/82 97 12/22/21 05:00 59 L 20 132/114 96 12/22/21 04:00 97.1 F L 56 L 17 134/84 96 12/22/21 03:00 60 18 134/88 97 12/22/21 02:00 56 L 14 141/88 99 12/22/21 01:00 54 L 17 138/87 97 12/22/21 00:14 54 L 20 97 12/22/21 00:00 97.6 F 55 L 17 141/90 98 12/21/21 23:00 63 16 142/85 98 12/21/21 22:00 54 L 16 132/89 97 12/21/21 21:00 56 L 18 142/84 98 12/21/21 20:00 97.9 F 67 15 148/106 98 12/21/21 19:00 67 11 L 132/77 97 12/21/21 18:00 63 18 151/96 98 12/21/21 17:30 62 10 L 151/86 98 12/21/21 17:00 59 L 14 130/82 96 12/21/21 16:30 11 L 148/78 97 12/21/21 16:00 98.0 F 55 L 14 148/92 97 12/21/21 15:30 59 L 12 141/97 98 12/21/21 15:00 60 12 157/88 98 12/21/21 14:30 56 L 10 L 144/84 98 12/21/21 14:00 56 L 11 L 139/87 99 12/21/21 13:30 57 L 8 L 140/79 97 12/21/21 13:00 97.8 F 14 135/79 96 12/21/21 12:46 12 12/21/21 11:42 98.1 F 63 18 154/99 98 12/21/21 10:56 64 12/21/21 10:54 63 18 154/99 98 12/21/21 10:48 98.1 F 65 18 166/99 96 Intake and Output 12/21/21 12/22/21 12/22/21 22:59 06:59 14:59 Intake Total 970 190 300 Output Total 1850 925 300 Balance -880 -735 0 Intake: IV 470 90 Sodium Chloride 0.9% 1, 470 90 000 ml In Empty Bag 1 bag @ 75 mls/hr IV .[id number] [facility] Rx#:[id number] Intake, IV Titration 100 Amount Magnesium Sulfate-D5w Pmx 100 1 gm In Dextrose/Water 1 100ml.bag @ 100 mls/hr IVPB Q1H [facility] Rx#: [id number] Oral 500 300 Output: Urine 1850 925 300 Other: Voiding Method Urinal Urinal Urinal Weight 107.8 kg GENERAL: The patient is alert and oriented x3, not in any acute distress. Well developed, well nourished. HEENT: Pupils are round and equally reacting to light. EOMI. No scleral icterus. No conjunctival pallor. Normocephalic, atraumatic. No pharyngeal erythema. No thyromegaly. CARDIOVASCULAR: S1 and S2 present. No murmurs, rubs, or gallops. PULMONARY: Chest is clear to auscultation, no wheezing or crackles. ABDOMEN: Soft, nontender, nondistended, normoactive bowel sounds. No palpable organomegaly. MUSCULOSKELETAL: No joint swelling or deformity. EXTREMITIES: No cyanosis, clubbing, or pedal edema. NEUROLOGICAL: Gross neurological examination did not reveal any focal deficits. SKIN: No rashes. no petechiae. Results CBC & Chem 7: 12/22/21 01:45 12/22/21 01:45 Labs: Abnormal Lab Results - Last 24 Hours (Table) 12/21/21 12/21/21 12/21/21 Range/Units 10:59 10:59 12:50 WBC (3.8-10.6) k/uL RBC (4.30-5.90) m/uL Hgb (13.0-17.5) gm/dL Neutrophils # (1.3-7.7) k/uL BUN 25 H (9-20) mg/dL Glucose 160 H (74-99) mg/dL POC Glucose (mg/dL) 125 H (70-110) mg/dL Magnesium 1.3 L (1.6-2.3) mg/dL Troponin I 0.489 H* (0.000-0.034) ng/mL 12/21/21 12/22/21 12/22/21 Range/Units 20:38 01:45 01:45 WBC 11.9 H (3.8-10.6) k/uL RBC 4.26 L (4.30-5.90) m/uL Hgb 12.8 L (13.0-17.5) gm/dL Neutrophils # 9.2 H (1.3-7.7) k/uL BUN (9-20) mg/dL Glucose 109 H (74-99) mg/dL POC Glucose (mg/dL) 151 H (70-110) mg/dL Magnesium 1.2 L (1.6-2.3) mg/dL Troponin I (0.000-0.034) ng/mL Thrombosis Risk Factor Assmnt - Choose All That Apply Any of the Below Risk Factors Present?: Yes Each Factor Represents 1 point: Acute CO Other Risk Factors: Yes Each Risk Factor Represents 2 Points: Age 61-74 years Thrombosis Risk Factor Assessment Total Risk Factor Score: 3 Thrombosis Risk Factor Assessment Level: Moderate Risk Assessment and Plan Assessment: Acute inferior posterior STEMI status post PCI to PCI to first OM branch Diabetes mellitus, type II Hypertension Hypothyroidism History of GERD History of benign prostatic hypertrophy History of PE on anticoagulation Plan: This is a pleasant 69 years old male who presents with STEMI Continue with dual antiplatelet therapy Continue with metoprolol and MALLORY inhibitor and statin Bench Worker Apprentice on the case. Check hemoglobin A1c Keep holding metformin and Januvia and continue with insulin sliding scale Labs and medication were reviewed.. Continue same treatment. Continue with symptomatic treatment. Resume home medication. Monitor lytes and vitals. DVT and GI prophylaxis. Further recommendations as per clinical course of the patient DVT prophylaxis: Subcutaneous heparin GI Prophylaxis: Ppi
[2021-12-22] MEDS: ASPIRIN 81 MG PO SCH (09:13)
[2021-12-22] MEDS: LEVOTHYROXINE 50 MCG TAB PO SCH (09:13)
[2021-12-22] MEDS: PANTOPRAZOLE 40 MG TABLET PO SCH (09:13)
[2021-12-22] MEDS: METOPROLOL TARTRATE 25 MG TAB PO SCH ×2 (09:13→20:36)
[2021-12-22] MEDS: TICAGRELOR 90 MG TAB PO SCH ×2 (09:13→20:36)
[2021-12-22] MEDS ORDERED: HEPARIN SODIUM,PORCINE/PF 5,000 UNIT/0.5 ML SYRINGE SQ SCH (09:30)
[2021-12-22] MEDS: RIVAROXABAN 2.5 MG TABLET PO SCH ×2 (10:45→20:35)
--- NOTE | 2021-12-22 11:04 | P.PN ---
Subjective Progress Note Date: 12/22/21 This is Bartolo Jane NP, I'm dictating on behalf of Dr. Smith's H&P and A&P. Patient was interviewed and examined. Patient is a pleasant 71-year-old male who initially presented to the hospital with a STEMI, and underwent emergent PCI where a large majority of a thrombus in the OM was evacuated, with stent placement. Patient is doing well today. States he has no chest pain. He is ambulating around the room without difficulty. GENERAL: Well-appearing, well-nourished and in no acute distress. NECK: Supple without JVD or thyromegaly. LUNGS: Breath sounds clear to auscultation bilaterally. Respiration equal and unlabored. No wheezes, rales or rhonchi. HEART: Regular rate and rhythm without murmurs, rubs or gallops. S1 and S2 heard. EXTREMITIES: Normal range of motion, no edema. No clubbing or cyanosis. Peripheral pulses intact and strong. VITALS: Heart rate 65, temp 97.6, respirations 12, blood pressure 123/84, O2 saturation 96% on room air TELEMETRY: Normal sinus rhythm LABS: White count 11.9, hemoglobin 12.8, platelets 188, sodium 137, potassium 3.7, BUN 17, creatinine 1.10, magnesium 1.2 IMPRESSION: 1. Acute ST elevation WI, inferior posterior lateral 2. Hypertension 3. Diabetes type 2 PLAN: Discontinue heparin Start Xarelto 2.5 mg twice a day in addition to the aspirin and brought into Obtain a 2-D echo in the morning Continue atorvastatin 80 mg daily Maximize beta blockers Further recommendations will be based on the patient's clinical course Objective - Vital Signs Vital signs: Vital Signs Temp 97.6 F 12/22/21 08:00 Pulse 55 L 12/22/21 10:00 Resp 15 12/22/21 10:00 BP 131/86 12/22/21 10:00 Pulse Ox 97 12/22/21 09:00 FiO2 Intake & Output 12/21/21 12/22/21 12/22/21 18:59 06:59 18:59 Intake Total 1677 285 300 Output Total 9935 1175 300 Balance -948 -890 0 Weight 102.965 kg 107.8 kg Intake: IV 1177 185 Sodium Chloride 0.9% 1, 600 185 000 ml In Empty Bag 1 bag @ 75 mls/hr IV .[id number] [facility] Rx#:[id number] Intake, IV Titration 100 Amount Magnesium Sulfate-D5w Pmx 100 1 gm In Dextrose/Water 1 100ml.bag @ 100 mls/hr IVPB Q1H [facility] Rx#: [id number] Oral 500 300 Output: Urine 2625 1175 300 Other: Voiding Method Urinal Urinal Urinal - Labs CBC & Chem 7: 12/22/21 01:45 12/22/21 01:45 Labs: Abnormal Lab Results - Last 24 Hours (Table) 12/21/21 12/21/21 12/21/21 Range/Units 10:59 10:59 12:50 WBC (3.8-10.6) k/uL RBC (4.30-5.90) m/uL Hgb (13.0-17.5) gm/dL Neutrophils # (1.3-7.7) k/uL BUN 25 H (9-20) mg/dL Glucose 160 H (74-99) mg/dL POC Glucose (mg/dL) 125 H (70-110) mg/dL Magnesium 1.3 L (1.6-2.3) mg/dL Troponin I 0.489 H* (0.000-0.034) ng/mL 12/21/21 12/22/21 12/22/21 Range/Units 20:38 01:45 01:45 WBC 11.9 H (3.8-10.6) k/uL RBC 4.26 L (4.30-5.90) m/uL Hgb 12.8 L (13.0-17.5) gm/dL Neutrophils # 9.2 H (1.3-7.7) k/uL BUN (9-20) mg/dL Glucose 109 H (74-99) mg/dL POC Glucose (mg/dL) 151 H (70-110) mg/dL Magnesium 1.2 L (1.6-2.3) mg/dL Troponin I (0.000-0.034) ng/mL
--- NOTE | 2021-12-22 11:15 | CA ---
Transthoracic Echo Report Name: Bull Rosales Age: 71 Gender: M : 1950 Exam Date: 12/21/2021 14:42 Exam Location: [place] [facility] Ht (in): 68 Wt (lb): 227 Ordering Physician: Christopher Pendleton MD ([id number]) Attending/Referring Phys: Corporate Accountant Karly Dalal, GIA Procedure CPT: Indications: stemi Cardiac Hx: Technical Quality: Good Contrast 1: Total Dose (mL): Contrast 2: Total Dose (mL): MEASUREMENTS (Male / Female) Normal Values 2D ECHO LV Diastolic Diameter PLAX 5.2 cm 4.2 - 5.9 / 3.9 - 5.3 cm LV Systolic Diameter PLAX 3.6 cm IVS Diastolic Thickness 1.3 cm 0.6 - 1.0 / 0.6 - 0.9 cm LVPW Diastolic Thickness 2.2 cm 0.6 - 1.0 / 0.6 - 0.9 cm LV Relative Wall Thickness 0.7 RV Internal Dim ED PLAX 3.3 cm LA Systolic Diameter LX 4.7 cm 3.0 - 4.0 / 2.7 - 3.8 cm M-MODE Aortic Root Diameter MM 4.2 cm MV E Point Septal Separation 0.4 cm DOPPLER MV Area PHT 4.9 cm??? Mitral E Point Velocity 69.9 cm/s Mitral A Point Velocity 34.3 cm/s Mitral E to A Ratio 2.0 MV Deceleration Time 153.9 ms FINDINGS Left Ventricle Left ventricular ejection fraction is estimated at 35 %. Moderately increased left ventricular wall thickness. Right Ventricle Normal right ventricular size and function. Right Atrium Normal right atrial size. Left Atrium Mildly increased left atrial diameter. Mitral Valve Structurally normal mitral valve. Moderate mitral regurgitation. 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 Tricuspid Valve Structurally normal tricuspid valve. Mild tricuspid regurgitation. Pulmonic Valve Pulmonic valve not well visualized. Pericardium Normal pericardium. Aorta Aortic dilatation. CONCLUSIONS Reduced LV systolic function posterior wall akinesis Left ventricular ejection fraction 35% Previewed by: Dr. Toni Smith MD (Electronically Signed) Final Date: 22 December 2021 11:14
[2021-12-22 11:59] LABS: Glucose,Whole Blood 152 mg/dL (70-110)
[2021-12-22] MEDS: INSULIN ASPART (NovoLOG) 100 UNIT/ML VIAL SQ SCH ×3 (14:42→20:35)
[2021-12-22 16:31] LABS: Glucose,Whole Blood 111 mg/dL (70-110)
[2021-12-22 19:59] LABS: Glucose,Whole Blood 116 mg/dL (70-110)
[2021-12-22] MEDS: TAMSULOSIN 0.4 MG CAP.ER.24H PO SCH (20:36)
[2021-12-22] MEDS: ATORVASTATIN 80 MG TAB PO SCH (20:36)
[2021-12-23 06:10] LABS: Glucose,Whole Blood 114 mg/dL (70-110)
[2021-12-23] MEDS: INSULIN ASPART (NovoLOG) 100 UNIT/ML VIAL SQ SCH ×4 (06:33→20:21)
[2021-12-23] MEDS: PANTOPRAZOLE 40 MG TABLET PO SCH (06:35)
[2021-12-23] MEDS: LEVOTHYROXINE 50 MCG TAB PO SCH (06:35)
[2021-12-23] MEDS: NITROGLYCERIN OINT 1 INCH/GM PACKET TOPICAL SCH ×4 (06:35→23:18)
[2021-12-23 06:41] LABS: Basophils % (A) 0 %; Eosinophils # (A) 0.4 k/uL (0-0.7); Eosinophils % (A) 4 %; HCT 39.8 % (39.0-53.0); HGB 13.2 gm/dL (13.0-17.5); Lymphocytes # (A) 1.4 k/uL (1.0-4.8); Lymphocytes % (A) 17 %; MCH 31.4 pg (25.0-35.0); MCHC 33.2 g/dL (31.0-37.0); MCV 94.8 fL (80.0-100.0); Monocytes # (A) 0.6 k/uL (0-1.0); Monocytes % (A) 7 %; Neutrophils # (A) 5.8 k/uL (1.3-7.7); Neutrophils % (A) 70 %; Platelet Count 153 k/uL (150-450); RBC 4.19 m/uL (4.30-5.90); RDW 14.5 % (11.5-15.5); WBC 8.3 k/uL (3.8-10.6)
[2021-12-23 06:58] LABS: African American GFR (CKD) >90 (>60 ml/min/1.73 sqM); Anion Gap 4 mmol/L; Blood Urea Nitrogen 14 mg/dL (9-20); Calcium 8.5 mg/dL (8.4-10.2); Carbon Dioxide 24 mmol/L (22-30); Chloride 108 mmol/L (98-107); Glucose 118 mg/dL (74-99); Magnesium 1.4 mg/dL (1.6-2.3); Non-African American GFR(CKD) 79 (>60 ml/min/1.73 sqM); Potassium 3.7 mmol/L (3.5-5.1); Sodium 136 mmol/L (137-145)
[2021-12-23] MEDS ORDERED: Potassium Replacement Protocol 1 EACH MISC MISCELLANE PRN (07:17)
[2021-12-23] MEDS ORDERED: Magnesium Replacement Protocol 1 EACH MISC MISCELLANE PRN (07:17)
[2021-12-23] MEDS ORDERED: DEXTROSE 5% IN WATER 250 ML with AMIODARONE 300 MG IV ONE (07:48)
[2021-12-23] MEDS ORDERED: POTASSIUM CHLORIDE ER 20 MEQ TAB.ER PO SCH (08:00)
[2021-12-23] MEDS: ASPIRIN 81 MG PO SCH (08:23)
[2021-12-23] MEDS: MAGNESIUM SULFATE-D5W PMX 1 GM in DEXTROSE/WATER 1 100ML.BAG IVPB SCH ×3 (08:23→11:12)
[2021-12-23] MEDS: TICAGRELOR 90 MG TAB PO SCH ×2 (08:23→20:28)
[2021-12-23] MEDS: METOPROLOL TARTRATE 25 MG TAB PO SCH ×2 (08:23→20:28)
[2021-12-23] MEDS: RIVAROXABAN 2.5 MG TABLET PO SCH (08:30)
--- NOTE | 2021-12-23 10:00 | P.PN ---
Subjective Progress Note Date: 12/23/21 The patient is a 71-year-old male who is currently admitted to the hospital with ST elevated myocardial infarction with occlusion of left circumflex. Aspiration thrombectomy and balloonplasty was attempted, but unsuccessful due to tortuosity. Subsequent stenting of lower OM1 and balloon angioplasty of the upper subbranch was performed. Residual thrombus was treated with Aggrastat. Overnight the patient developed A. fib with RVR. The patient is currently receiving amiodarone bolus. Per Dr. Smith's recommendations, if the patient does not convert to sinus rhythm with single bolus we will then continue amiodarone drip and transitioned to oral prior to discharge. The patient does have known history of paroxysmal atrial tachycardia. The patient states he remains completely asymptomatic despite being in A. fib with RVR. He was up ambulating to the restroom without dizziness, lightheadedness, or dyspnea. He denies any weakness or fatigue. GENERAL: Well-appearing, well-nourished and in no acute distress. NECK: Supple without JVD or thyromegaly. LUNGS: Breath sounds clear to auscultation bilaterally. Respiration equal and unlabored. No wheezes, rales or rhonchi. HEART: Irregular rhythm. No murmurs, rubs or gallops. S1 and S2 heard. EXTREMITIES: Normal range of motion, no edema. No clubbing or cyanosis. Peripheral pulses intact and strong. VITALS: Blood pressure 124/76, heart rate 145, respiratory rate 21, SpO2 94% on room air, afebrile TELEMETRY: A. fib with RVR LABS: WBC 8.3, hemoglobin 13.2, hematocrit 39.8, platelet 153, sodium 136, potassium 3.7, BUN 14, creatinine 0.96, magnesium 1.4 IMPRESSION: Acute ST elevated myocardial infarction, left circumflex occlusion Status post intervention on OM1 New onset A. fib with RVR, currently receiving amiodarone bolus Hypomagnesemia, supplementation per protocol History of hypertension History diabetes mellitus PLAN: Check TSH Discontinue Xarelto vascular dosing Start Eliquis 2-1/2 mg twice daily Continue Brillinta and low-dose aspirin Further recommendations to be based upon clinical course I am dictating on behalf of Dr Toni Smith's history/physical and assessment/plan. Objective - Vital Signs Vital signs: Vital Signs Temp 97.5 F L 12/23/21 08:00 Pulse 130 H 12/23/21 08:00 Resp 21 12/23/21 08:00 BP 124/76 12/23/21 08:00 Pulse Ox 94 L 12/23/21 08:00 FiO2 2 12/22/21 12:00 Intake & Output 12/22/21 12/23/21 12/23/21 18:59 06:59 18:59 Intake Total 1200 Output Total 300 0 Balance 900 0 Weight 103.6 kg Intake: Oral 1200 Output: Urine 300 0 Other: Voiding Method Urinal Urinal # Voids 1 1 1 - Labs CBC & Chem 7: 12/23/21 06:03 12/23/21 06:03 Labs: Abnormal Lab Results - Last 24 Hours (Table) 12/22/21 12/22/21 12/22/21 Range/Units 11:56 16:29 19:56 RBC (4.30-5.90) m/uL Sodium (137-145) mmol/L Chloride (98-107) mmol/L Glucose (74-99) mg/dL POC Glucose (mg/dL) 152 H 111 H 116 H (70-110) mg/dL Magnesium (1.6-2.3) mg/dL 12/23/21 12/23/21 12/23/21 Range/Units 06:03 06:03 06:08 RBC 4.19 L (4.30-5.90) m/uL Sodium 136 L (137-145) mmol/L Chloride 108 H (98-107) mmol/L Glucose 118 H (74-99) mg/dL POC Glucose (mg/dL) 114 H (70-110) mg/dL Magnesium 1.4 L (1.6-2.3) mg/dL
[2021-12-23] MEDS ORDERED: AMIODARONE 360 MG in DEXTROSE 5% IN WATER 200 ML IV ONE ×2 (11:07)
[2021-12-23 11:37] LABS: Glucose,Whole Blood 168 mg/dL (70-110)
--- NOTE | 2021-12-23 12:40 | P.PN ---
Subjective Progress Note Date: 12/23/21 This is a pleasant 71 years old male with past medical history of hypothyroidism, hypertension, diabetes mellitus type 2, GERD, benign prostatic hypertrophy area Patient presents because of acute chest pain found to have ST elevation myocardial infarction, patient has been evaluated by company marker and he underwent emergent cardiac cath and PCI to first OM branch Currently patient lying in bed comfortable, he denies chest pain or dyspnea, no abdominal pain. No urinary complaints, no fever or swelling. He denies smoking, alcohol or illicit tracts. His primary doctor is Dr. Browning who supposed to see him tomorrow for follow-up appointment and check his sugar status Vitals are stable. unremarkable cbc, inr, bmp and liver enzymes. magnesium 1.3 troponin elevated 0.48. 12/23/2021 Patient is seen in follow-up continues to be in the ICU with cardiology following closely. Patient is status post STEMI and underwent cardiac catheterization with PCI to the first OM branch. Patient reports no chest pain or shortness of breath today and reports some weakness and reports nursing staff does not want him to get up out of the bed just yet. Patient's heart rate is elevated and maintained on IV amiodarone and transitioning to oral with cardiology following closely. Patient also maintained on Brilinta. Most recent 2-D echo shows an EF of approximately 35%. Magnesium was found to be critically low at 1.4 and being replaced per protocol, blood sugars have been controlled and recommend continue with Accu-Cheks before meals and at bedtime and currently being controlled with sliding scale as needed. Patient is afebrile and denies any chest pain or shortness of breath. Review of systems: Constitutional: No reports of fatigue, fever, or chills Cardiovascular: No reports of chest pain or palpitations Respiratory: No reports of shortness of breath or cough GI: No reports of nausea, vomiting, or diarrhea : No reports of dysuria or retention Neurovascular: reports of generalized weakness All medications have been reviewed Active Medications Al Hydroxide/Mg Hydroxide (Mag Hydrox/Al Hydrox/Simeth 30 Ml Cup) 30 ml PO Q4HR PRN PRN Reason: Heartburn Apixaban (Apixaban 2.5 Mg Tablet) 2.5 mg PO BID [facility]; Protocol Aspirin (Aspirin 81 Mg) 81 mg PO DAILY [facility] Last Admin: 12/23/21 08:23 Dose: 81 mg Atorvastatin Calcium (Atorvastatin 80 Mg Tab) 80 mg PO [facility] Last Admin: 12/22/21 20:36 Dose: 80 mg Atropine Sulfate (Atropine Sulfate 0.1 Mg/Ml 10ml Syringe) 0.5 mg IV ONCE PRN PRN Reason: Symptomatic Bradycardia Amiodarone HCl 360 mg/ (Dextrose/Water) 200 mls @ 33.333 mls/hr IV .Q6H [facility]; Protocol Stop: 12/23/21 17:06 Last Admin: 12/23/21 11:39 Dose: 1 mg/min, 33.333 mls/hr Amiodarone HCl 450 mg/ (Dextrose/Water) 250 mls @ 16.667 mls/hr IV .Q15H [facility]; Protocol Stop: 12/24/21 11:14 Insulin Aspart (Insulin Aspart (Novolog) 100 Unit/Ml Vial) 0 unit SQ [facility]; Protocol Last Admin: 12/23/21 06:33 Dose: Not Given Levothyroxine Sodium (Levothyroxine 50 Mcg Tab) 50 mcg PO DAILY@0630 [facility] Last Admin: 12/23/21 06:35 Dose: 50 mcg Metoprolol Tartrate (Metoprolol Tartrate 25 Mg Tab) 25 mg PO BID [facility] Last Admin: 12/23/21 08:23 Dose: 25 mg Miscellaneous Information (Potassium Replacement Protocol 1 Each Misc) 1 each MISCELLANE DAILY PRN; Protocol PRN Reason: Per Protocol Miscellaneous Information (Magnesium Replacement Protocol 1 Each Misc) 1 each MISCELLANE DAILY PRN; Protocol PRN Reason: Per Protocol Morphine Sulfate (Morphine Sulfate 2 Mg/Ml Syringe) 2 mg IVP Q4HR PRN PRN Reason: Pain/Discomfort Last Admin: 12/21/21 14:09 Dose: 2 mg Nitroglycerin (Nitroglycerin Sl Tabs 0.4 Mg Tab) 0.4 mg SUBLINGUAL Q5M PRN PRN Reason: Chest Pain Nitroglycerin (Nitroglycerin Oint 1 Inch/Gm Packet) 1 inch TOPICAL Q6HR [facility] Last Admin: 12/23/21 06:35 Dose: 1 inch Pantoprazole Sodium (Pantoprazole 40 Mg Tablet) 40 mg PO [id number] [facility] Last Admin: 12/23/21 06:35 Dose: 40 mg Tamsulosin HCl (Tamsulosin 0.4 Mg Cap.Er.24h) 0.8 mg PO [facility] Last Admin: 12/22/21 20:36 Dose: 0.8 mg Ticagrelor (Ticagrelor 90 Mg Tab) 90 mg PO BID [facility]; Protocol Last Admin: 12/23/21 08:23 Dose: 90 mg Zolpidem Tartrate (Zolpidem 5 Mg Tab) 5 mg PO HS PRN PRN Reason: Insomnia Physical exam: GENERAL: The patient is alert and oriented x3, not in any acute distress. Well developed, well nourished. HEENT: Pupils are round and equally reacting to light. EOMI. No scleral icterus. No conjunctival pallor. Normocephalic, atraumatic. No pharyngeal erythema. No thyromegaly. CARDIOVASCULAR: S1 and S2 present. No murmurs, rubs, or gallops. PULMONARY: Chest is clear to auscultation, no wheezing or crackles. ABDOMEN: Soft, nontender, nondistended, normoactive bowel sounds. No palpable organomegaly. MUSCULOSKELETAL: No joint swelling or deformity. EXTREMITIES: No cyanosis, clubbing, or pedal edema. NEUROLOGICAL: Gross neurological examination did not reveal any focal deficits. SKIN: No rashes. no petechiae. Assessment: Acute inferior posterior STEMI status post PCI to PCI to first OM branch Atrial fibrillation with RVR new onset Diabetes mellitus, type II Hypomagnesemia Hypertension Hypothyroidism History of GERD History of benign prostatic hypertrophy History of PE on anticoagulation GI prophylaxis DVT prophylaxis Full code Plan: Recommend continue with current medications and management per cardiology services. Patient is new onset atrial fibrillation with rapid ventricular rate. Patient is maintained in the ICU and awaiting transfer out of the ICU once bed on 3 S. becomes available. Recommend continue telemetry monitoring and patient is maintained on IV amiodarone along with oral metoprolol and is on anticoagulation in the form of Eliquis and also Brilinta Continue with dual antiplatelet therapy Continue with metoprolol and MALLORY inhibitor and statin Recommend continue monitoring Accu-Cheks before meals and at bedtime and will continue to use sliding scale and hold metformin and Januvia for now The impression and plan of care has been dictated by Meredith Alfred Nurse Pr actitioner as directed. Dr. Balwinder MD I have performed a history and examination and MDM of this patient, discussed the same with the dictator, and agree with the dictator's assessment and plan a s written ,documented as a scribe. Based on total visit time, I have performed more than 50% of the visit. Objective - Vital Signs Vital signs: Vital Signs Temp 97.5 F L 12/23/21 08:00 Pulse 130 H 12/23/21 08:00 Resp 21 12/23/21 08:00 BP 124/76 12/23/21 08:00 Pulse Ox 94 L 12/23/21 08:00 FiO2 2 12/22/21 12:00 Intake & Output 12/22/21 12/23/21 12/23/21 18:59 06:59 18:59 Intake Total 1200 Output Total 300 0 Balance 900 0 Weight 103.6 kg Intake: Oral 1200 Output: Urine 300 0 Other: Voiding Method Urinal Urinal # Voids 1 1 1 - Labs CBC & Chem 7: 12/23/21 06:03 12/23/21 06:03 Labs: Abnormal Lab Results - Last 24 Hours (Table) 12/22/21 12/22/21 12/22/21 Range/Units 11:56 16:29 19:56 RBC (4.30-5.90) m/uL Sodium (137-145) mmol/L Chloride (98-107) mmol/L Glucose (74-99) mg/dL POC Glucose (mg/dL) 152 H 111 H 116 H (70-110) mg/dL Magnesium (1.6-2.3) mg/dL 12/23/21 12/23/21 12/23/21 Range/Units 06:03 06:03 06:08 RBC 4.19 L (4.30-5.90) m/uL Sodium 136 L (137-145) mmol/L Chloride 108 H (98-107) mmol/L Glucose 118 H (74-99) mg/dL POC Glucose (mg/dL) 114 H (70-110) mg/dL Magnesium 1.4 L (1.6-2.3) mg/dL
[2021-12-23 18:20] LABS: Glucose,Whole Blood 143 mg/dL (70-110)
[2021-12-23] MEDS: AMIODARONE 450 MG in DEXTROSE 5% IN WATER 250 ML IV SCH ×2 (18:26)
[2021-12-23 20:00] LABS: Glucose,Whole Blood 107 mg/dL (70-110)
[2021-12-23] MEDS: APIXABAN 2.5 MG TABLET PO SCH (20:28)
[2021-12-23] MEDS: TAMSULOSIN 0.4 MG CAP.ER.24H PO SCH (20:28)
[2021-12-23] MEDS: ATORVASTATIN 80 MG TAB PO SCH (20:28)
[2021-12-24 06:18] LABS: Basophils # (A) 0.1 k/uL (0-0.2); Basophils % (A) 1 %; Eosinophils # (A) 0.4 k/uL (0-0.7); Eosinophils % (A) 4 %; HCT 41.2 % (39.0-53.0); HGB 13.1 gm/dL (13.0-17.5); Lymphocytes # (A) 1.8 k/uL (1.0-4.8); Lymphocytes % (A) 18 %; MCH 30.1 pg (25.0-35.0); MCHC 31.8 g/dL (31.0-37.0); MCV 94.7 fL (80.0-100.0); Mean Platelet Volume 8.2; Monocytes # (A) 0.7 k/uL (0-1.0); Monocytes % (A) 7 %; Neutrophils # (A) 6.8 k/uL (1.3-7.7); Neutrophils % (A) 69 %; Platelet Count 165 k/uL (150-450); RBC 4.35 m/uL (4.30-5.90); RDW 14.3 % (11.5-15.5); WBC 9.9 k/uL (3.8-10.6)
[2021-12-24 06:26] LABS: Glucose,Whole Blood 125 mg/dL (70-110)
[2021-12-24] MEDS: NITROGLYCERIN OINT 1 INCH/GM PACKET TOPICAL SCH (06:30)
[2021-12-24] MEDS: PANTOPRAZOLE 40 MG TABLET PO SCH (06:30)
[2021-12-24] MEDS: LEVOTHYROXINE 50 MCG TAB PO SCH (06:30)
[2021-12-24] MEDS: INSULIN ASPART (NovoLOG) 100 UNIT/ML VIAL SQ SCH ×4 (06:30→20:52)
[2021-12-24 06:36] LABS: Calcium 8.4 mg/dL (8.4-10.2); Magnesium 1.7 mg/dL (1.6-2.3); Potassium 3.9 mmol/L (3.5-5.1)
[2021-12-24] MEDS: MAGNESIUM SULFATE-D5W PMX 1 GM in DEXTROSE/WATER 1 100ML.BAG IVPB SCH ×2 (06:59→07:48)
[2021-12-24] MEDS ORDERED: POTASSIUM CHLORIDE ER 20 MEQ TAB.ER PO SCH (07:00)
[2021-12-24] MEDS: AMIODARONE 450 MG in DEXTROSE 5% IN WATER 250 ML IV SCH ×2 (07:48)
[2021-12-24] MEDS: METOPROLOL TARTRATE 25 MG TAB PO SCH (08:03)
[2021-12-24] MEDS: APIXABAN 2.5 MG TABLET PO SCH ×2 (08:03→20:55)
[2021-12-24] MEDS: TICAGRELOR 90 MG TAB PO SCH ×2 (08:03→20:55)
[2021-12-24] MEDS: ASPIRIN 81 MG PO SCH (08:03)
--- NOTE | 2021-12-24 09:16 | P.PN ---
Subjective Progress Note Date: 12/24/21 The patient is a 71-year-old male who is currently admitted to the hospital with ST elevated myocardial infarction with occlusion of left circumflex. Aspiration thrombectomy and balloonplasty was attempted, but unsuccessful due to tortuosity. Subsequent stenting of lower OM1 and balloon angioplasty of the upper subbranch was performed. Residual thrombus was treated with Aggrastat. Yesterday the patient developed A. fib with RVR. Unfortunately he did not convert to sinus rhythm with amiodarone bolus, therefore has continued on IV drip overnight. The patient remains in A. fib this morning with heart rates in the low 100s. The patient states he remains completely asymptomatic despite being in atrial fibrillation He was up ambulating to the restroom without dizziness, lightheadedness, or dyspnea. He denies any weakness or fatigue. He states he rested well overnight GENERAL: Well-appearing, well-nourished and in no acute distress. NECK: Supple without JVD or thyromegaly. LUNGS: Breath sounds clear to auscultation bilaterally. Respiration equal and unlabored. No wheezes, rales or rhonchi. HEART: Irregular rhythm. No murmurs, rubs or gallops. S1 and S2 heard. EXTREMITIES: Normal range of motion, no edema. No clubbing or cyanosis. Peripheral pulses intact and strong. VITALS: Blood pressure 124/96, pulse 98, respiratory rate 17, SpO2 97% on room air TELEMETRY: Atrial fibrillation with heart rates in the low 100s LABS: WBC 9.9, hemoglobin 13.1, hematocrit 41.2, platelets 165, sodium 137, potassium 3.9, BUN 15, creatinine 1.17, magnesium 1.7, TSH 2.7 IMPRESSION: Acute ST elevated myocardial infarction, left circumflex occlusion Status post intervention on OM1 New onset A. fib with RVR Hypomagnesemia, supplementation per protocol History of hypertension History diabetes mellitus PLAN: Transition to oral amiodarone 400 mg daily Increase metoprolol to 50 mg twice daily Continue antiplatelet triple therapy. Aspirin will be discontinued outpatient. Patient may be transferred to [facility]. Further recommendations to be based upon clinical course I am dictating on behalf of Dr Toni Smith's history/physical and assessment/plan. Objective - Vital Signs Vital signs: Vital Signs Temp 98.0 F 12/24/21 08:00 Pulse 85 07/19/22 08:00 Resp 17 12/24/21 08:00 BP 124/96 12/24/21 08:00 Pulse Ox 97 12/24/21 08:00 FiO2 2 12/22/21 12:00 Intake & Output 12/23/21 12/24/21 12/24/21 18:59 06:59 18:59 Intake Total 222.782 Output Total 1300 300 0 Balance -1300 -300 222.782 Weight 103.7 kg Intake: Intake, IV Titration 222.782 Amount Amiodarone 450 mg In 222.782 Dextrose 5% in Water 250 ml @ 0.5 MG/MIN 16.667 mls/hr IV .Q15H [facility] Rx#: [id number] Output: Urine 1300 0 0 Stool 300 Other: Voiding Method Urinal Urinal Toilet Urinal # Voids 1 1 - Labs CBC & Chem 7: 12/24/21 05:47 12/24/21 05:47 Labs: Abnormal Lab Results - Last 24 Hours (Table) 12/23/21 12/23/21 12/24/21 Range/Units 11:35 18:18 05:47 Glucose 125 H (74-99) mg/dL POC Glucose (mg/dL) 168 H 143 H (70-110) mg/dL 12/24/21 Range/Units 06:15 Glucose (74-99) mg/dL POC Glucose (mg/dL) 125 H (70-110) mg/dL
[2021-12-24] MEDS: AMIODARONE 200 MG TAB PO SCH (09:40)
[2021-12-24] MEDS: METOPROLOL TARTRATE 50 MG TAB PO SCH ×2 (09:40→20:55)
[2021-12-24 11:46] LABS: Glucose,Whole Blood 124 mg/dL (70-110)
[2021-12-24 16:06] LABS: Glucose,Whole Blood 112 mg/dL (70-110)
[2021-12-24 20:13] LABS: Glucose,Whole Blood 114 mg/dL (70-110)
[2021-12-24] MEDS: ATORVASTATIN 80 MG TAB PO SCH (20:55)
[2021-12-24] MEDS: TAMSULOSIN 0.4 MG CAP.ER.24H PO SCH (20:55)
--- NOTE | 2021-12-24 21:00 | P.PN ---
Subjective Progress Note Date: 12/24/21 This is a pleasant 71 years old male with past medical history of hypothyroidism, hypertension, diabetes mellitus type 2, GERD, benign prostatic hypertrophy area Patient presents because of acute chest pain found to have ST elevation myocardial infarction, patient has been evaluated by division operations specialist and he underwent emergent cardiac cath and PCI to first OM branch Currently patient lying in bed comfortable, he denies chest pain or dyspnea, no abdominal pain. No urinary complaints, no fever or swelling. He denies smoking, alcohol or illicit tracts. His primary doctor is Dr. Browning who supposed to see him tomorrow for follow-up appointment and check his sugar status Vitals are stable. unremarkable cbc, inr, bmp and liver enzymes. magnesium 1.3 troponin elevated 0.48. 12/23/2021 Patient is seen in follow-up continues to be in the ICU with cardiology following closely. Patient is status post STEMI and underwent cardiac catheterization with PCI to the first OM branch. Patient reports no chest pain or shortness of breath today and reports some weakness and reports nursing staff does not want him to get up out of the bed just yet. Patient's heart rate is elevated and maintained on IV amiodarone and transitioning to oral with cardiology following closely. Patient also maintained on Brilinta. Most recent 2-D echo shows an EF of approximately 35%. Magnesium was found to be critically low at 1.4 and being replaced per protocol, blood sugars have been controlled and recommend continue with Accu-Cheks before meals and at bedtime and currently being controlled with sliding scale as needed. Patient is afebrile and denies any chest pain or shortness of breath. 12/24/2021 Patient is seen today continues to be in the ICU and has been downgraded and awaiting a bed on selected unit. Cardiology following closely as patient was new-onset atrial fibrillation status post STEMI with stent placement and was maintained on IV amiodarone overnight and being transitioned to oral metoprolol along with oral amiodarone and recommend continued telemetry monitoring for another 24 hours with possible discharge tomorrow. Patient magnesium 1.7 and will replace per protocol recommend repeat labs in the morning. Patient is afebrile denies any chest pain or shortness of breath. Patient also transition to eliquis 2.5 mg twice daily and will continue. Patient is tolerating diet with no reports of nausea or vomiting noted. Patient is anxious to go home. Review of systems: Constitutional: No reports of fatigue, fever, or chills Cardiovascular: No reports of chest pain or palpitations Respiratory: No reports of shortness of breath or cough GI: No reports of nausea, vomiting, or diarrhea : No reports of dysuria or retention Neurovascular: no reports of generalized weakness All medications have been reviewed Active Medications Al Hydroxide/Mg Hydroxide (Mag Hydrox/Al Hydrox/Simeth 30 Ml Cup) 30 ml PO Q4HR PRN PRN Reason: Heartburn Amiodarone HCl (Amiodarone 200 Mg Tab) 400 mg PO DAILY [facility] Apixaban (Apixaban 2.5 Mg Tablet) 2.5 mg PO BID [facility]; Protocol Last Admin: 12/24/21 08:03 Dose: 2.5 mg Aspirin (Aspirin 81 Mg) 81 mg PO DAILY [facility] Last Admin: 12/24/21 08:03 Dose: 81 mg Atorvastatin Calcium (Atorvastatin 80 Mg Tab) 80 mg PO HS [facility] Last Admin: 12/23/21 20:28 Dose: 80 mg Atropine Sulfate (Atropine Sulfate 0.1 Mg/Ml 10ml Syringe) 0.5 mg IV ONCE PRN PRN Reason: Symptomatic Bradycardia Amiodarone HCl 450 mg/ (Dextrose/Water) 250 mls @ 16.667 mls/hr IV .Q15H [facility]; Protocol Stop: 12/24/21 11:14 Last Admin: 12/24/21 07:48 Dose: 0.5 mg/min, 16.667 mls/hr Insulin Aspart (Insulin Aspart (Novolog) 100 Unit/Ml Vial) 0 unit SQ ACHS [facility]; Protocol Last Admin: 12/24/21 06:30 Dose: Not Given Levothyroxine Sodium (Levothyroxine 50 Mcg Tab) 50 mcg PO DAILY@0630 [facility] Last Admin: 12/24/21 06:30 Dose: 50 mcg Metoprolol Tartrate (Metoprolol Tartrate 50 Mg Tab) 50 mg PO BID [facility] Miscellaneous Information (Potassium Replacement Protocol 1 Each Misc) 1 each MISCELLANE DAILY PRN; Protocol PRN Reason: Per Protocol Miscellaneous Information (Magnesium Replacement Protocol 1 Each Misc) 1 each MISCELLANE DAILY PRN; Protocol PRN Reason: Per Protocol Morphine Sulfate (Morphine Sulfate 2 Mg/Ml Syringe) 2 mg IVP Q4HR PRN PRN Reason: Pain/Discomfort Last Admin: 12/21/21 14:09 Dose: 2 mg Nitroglycerin (Nitroglycerin Sl Tabs 0.4 Mg Tab) 0.4 mg SUBLINGUAL Q5M PRN PRN Reason: Chest Pain Pantoprazole Sodium (Pantoprazole 40 Mg Tablet) 40 mg PO AC-[id number] [facility] Last Admin: 12/24/21 06:30 Dose: 40 mg Tamsulosin HCl (Tamsulosin 0.4 Mg Cap.Er.24h) 0.8 mg PO HS [facility] Last Admin: 12/23/21 20:28 Dose: 0.8 mg Ticagrelor (Ticagrelor 90 Mg Tab) 90 mg PO BID [facility]; Protocol Last Admin: 12/24/21 08:03 Dose: 90 mg Zolpidem Tartrate (Zolpidem 5 Mg Tab) 5 mg PO HS PRN PRN Reason: Insomnia Physical exam: GENERAL: The patient is alert and oriented x3, not in any acute distress. Well developed, well nourished. HEENT: Pupils are round and equally reacting to light. EOMI. No scleral icterus. No conjunctival pallor. Normocephalic, atraumatic. No pharyngeal erythema. No thyromegaly. CARDIOVASCULAR: S1 and S2 present. No murmurs, rubs, or gallops. PULMONARY: Chest is clear to auscultation, no wheezing or crackles. ABDOMEN: Soft, nontender, nondistended, normoactive bowel sounds. No palpable organomegaly. MUSCULOSKELETAL: No joint swelling or deformity. EXTREMITIES: No cyanosis, clubbing, or pedal edema. NEUROLOGICAL: Gross neurological examination did not reveal any focal deficits. SKIN: No rashes. no petechiae. Assessment: Acute inferior posterior STEMI status post PCI to PCI to first OM branch Atrial fibrillation with RVR new onset Diabetes mellitus, type II Hypomagnesemia Hypertension Hypothyroidism History of GERD History of benign prostatic hypertrophy History of PE on anticoagulation GI prophylaxis DVT prophylaxis Full code Plan: Recommend continue with current medications and management per cardiology services. Patient was new onset atrial fibrillation with rapid ventricular rate That is post STEMI with stent placement and has been maintained on IV amiodarone. patient will transition to oral amiodarone along with metoprolol and is being anticoagulated with eliquis 2.5mg bid along with purulence and will continue aspirin until discharge. Patient will need close outpatient follow-up with cardiology and primary care provider Dr. Browning. Patient is an overflow in the ICU and awaiting transfer out of the ICU once bed on 3 S. becomes available. Recommend continue telemetry monitoring close monitoring of vital signs overnight with possible discharge in 24 hours Continue with metoprolol and MALLORY inhibitor and statin Recommend continue monitoring Accu-Cheks before meals and at bedtime and will continue to use sliding scale and hold metformin and Januvia for now Possible discharge in 24 hours The impression and plan of care has been dictated by Meredith Alfred, Nurse Practitioner as directed. Dr. Balwinder MD I have performed a history and examination and MDM of this patient, discussed the same with the dictator, and agree with the dictator's assessment and plan as written ,documented as a scribe. Based on total visit time, I have performed more than 50% of the visit. Objective - Vital Signs Vital signs: Vital Signs Temp 98.0 F 12/24/21 08:00 Pulse 80 12/24/21 09:00 Resp 14 12/24/21 09:00 BP 122/74 12/24/21 09:00 Pulse Ox 93 L 12/24/21 09:00 FiO2 2 12/22/21 12:00 Intake & Output 12/23/21 12/24/21 12/24/21 18:59 06:59 18:59 Intake Total 222.782 Output Total 1300 300 0 Balance -1300 -300 222.782 Weight 103.7 kg Intake: Intake, IV Titration 222.782 Amount Amiodarone 450 mg In 222.782 Dextrose 5% in Water 250 ml @ 0.5 MG/MIN 16.667 mls/hr IV .Q15H [facility] Rx#: [id number] Output: Urine 1300 0 0 Stool 300 Other: Voiding Method Urinal Urinal Toilet Urinal # Voids 1 1 - Labs CBC & Chem 7: 12/24/21 05:47 12/24/21 05:47 Labs: Abnormal Lab Results - Last 24 Hours (Table) 12/23/21 12/23/21 12/24/21 Range/Units 11:35 18:18 05:47 Glucose 125 H (74-99) mg/dL POC Glucose (mg/dL) 168 H 143 H (70-110) mg/dL 12/24/21 Range/Units 06:15 Glucose (74-99) mg/dL POC Glucose (mg/dL) 125 H (70-110) mg/dL
[2021-12-25 05:46] LABS: Glucose,Whole Blood 188 mg/dL (70-110)
[2021-12-25] MEDS: INSULIN ASPART (NovoLOG) 100 UNIT/ML VIAL SQ SCH ×4 (06:22→21:37)
[2021-12-25] MEDS: LEVOTHYROXINE 50 MCG TAB PO SCH (06:23)
[2021-12-25] MEDS: PANTOPRAZOLE 40 MG TABLET PO SCH (06:23)
[2021-12-25] MEDS: ASPIRIN 81 MG PO SCH (08:46)
[2021-12-25] MEDS: METOPROLOL TARTRATE 50 MG TAB PO SCH (08:47)
[2021-12-25] MEDS: AMIODARONE 200 MG TAB PO SCH (08:47)
[2021-12-25] MEDS: APIXABAN 2.5 MG TABLET PO SCH ×2 (08:47→21:41)
[2021-12-25] MEDS: TICAGRELOR 90 MG TAB PO SCH ×2 (08:47→21:41)
[2021-12-25] MEDS ORDERED: MAGNESIUM OXIDE 400 MG TAB PO STA (09:00)
[2021-12-25 11:31] LABS: Glucose,Whole Blood 108 mg/dL (70-110)
[2021-12-25] MEDS ORDERED: METOPROLOL TARTRATE 25 MG TAB PO STA (13:11)
--- NOTE | 2021-12-25 13:12 | P.PN ---
Subjective Progress Note Date: 12/25/21 HISTORY OF PRESENT ILLNESS: The patient is a 71-year-old male who is currently admitted to the hospital with ST elevated myocardial infarction with occlusion of left circumflex. Aspiration thrombectomy and balloonplasty was attempted, but unsuccessful due to tortuosity. Subsequent stenting of lower OM1 and balloon angioplasty of the upper subbranch was performed. Residual thrombus was treated with Aggrastat. Yesterday the patient developed A. fib with RVR. Unfortunately he did not convert to sinus rhythm with amiodarone bolus, therefore has continued on IV drip overnight. The patient remains in A. fib this morning with heart rates in the low 100s. The patient states he remains completely asymptomatic despite being in atrial fibrillation He was up ambulating to the restroom without dizziness, lightheadedness, or dyspnea. He denies any weakness or fatigue. He states he rested well overnight 12/25/2021 Patient examined this morning at the bedside. Patient denies chest pain or pressure. Denies SOB. He remains in atrial fibrillation with a heart rate in the 90s. Blood pressure 126/68. Echocardiogram completed revealing ejection fraction 35%. PHYSICAL EXAM: VITAL SIGNS: Reviewed. GENERAL: Well-developed in no acute distress. NECK: Supple. No JVD or thyromegaly LUNGS: Respirations even and unlabored. Lungs essentially clear to auscultation bilaterally. HEART: Irregular rate and rhythm. S1 and S2 heard. EXTREMITIES: Normal range of motion. No clubbing or cyanosis. Peripheral pulses intact. No lower extremity edema ASSESSMENT: STEMI, s/p PCI of OM1 with very large thrombus burden Inadequate reconstitution of artery secondary to large thrombus burden Status post aspiration thrombectomy of left circumflex New onset atrial fibrillation with RVR Ischemic cardiomyopathy, EF 35% Hypertension Diabetes PLAN: Continue current cardiac medications Increase metoprolol to 75mg BID Continue triple therapy for 1 month with Brilinta, aspirin, and Eliquis Continue telemetry monitoring Patient will require LifeVest at the time of discharge secondary to cardiomyopathy to prevent sudden cardiac Further recommendations pending patient course Nurse practitioner note has been reviewed by physician. Signing provider agrees with the documented findings, assessment, and plan of care. Objective - Vital Signs Vital signs: Vital Signs Temp 97.4 F L 12/25/21 11:50 Pulse 89 12/25/21 11:50 Resp 17 12/25/21 11:50 BP 126/68 12/25/21 11:50 Pulse Ox 98 12/25/21 11:50 FiO2 2 12/22/21 12:00 Intake & Output 12/24/21 12/25/21 12/25/21 18:59 06:59 18:59 Intake Total 259.449 118 Output Total 0 Balance 259.449 118 Intake: Intake, IV Titration 259.449 Amount Amiodarone 450 mg In 259.449 Dextrose 5% in Water 250 ml @ 0.5 MG/MIN 16.667 mls/hr IV .Q15H [facility] Rx#: [id number] Oral 118 Output: Urine 0 Other: Voiding Method Toilet Toilet Toilet Urinal Urinal Urinal # Voids 1 1 - Labs CBC & Chem 7: 12/24/21 05:47 12/24/21 05:47 Labs: Abnormal Lab Results - Last 24 Hours (Table) 12/24/21 12/24/21 12/25/21 Range/Units 16:05 20:06 05:40 POC Glucose (mg/dL) 112 H 114 H 188 H (70-110) mg/dL
--- NOTE | 2021-12-25 15:08 | P.PN ---
Subjective Progress Note Date: 12/25/21 This is a pleasant 71 years old male with past medical history of hypothyroidism, hypertension, diabetes mellitus type 2, GERD, benign prostatic hypertrophy area Patient presents because of acute chest pain found to have ST elevation myocardial infarction, patient has been evaluated by orthodontic treatment coordinator and he underwent emergent cardiac cath and PCI to first OM branch Currently patient lying in bed comfortable, he denies chest pain or dyspnea, no abdominal pain. No urinary complaints, no fever or swelling. He denies smoking, alcohol or illicit tracts. His primary doctor is Dr. Browning who supposed to see him tomorrow for follow-up appointment and check his sugar status Vitals are stable. unremarkable cbc, inr, bmp and liver enzymes. magnesium 1.3 troponin elevated 0.48. 12/23/2021 Patient is seen in follow-up continues to be in the ICU with cardiology following closely. Patient is status post STEMI and underwent cardiac catheterization with PCI to the first OM branch. Patient reports no chest pain or shortness of breath today and reports some weakness and reports nursing staff does not want him to get up out of the bed just yet. Patient's heart rate is elevated and maintained on IV amiodarone and transitioning to oral with cardiology following closely. Patient also maintained on Brilinta. Most recent 2-D echo shows an EF of approximately 35%. Magnesium was found to be critically low at 1.4 and being replaced per protocol, blood sugars have been controlled and recommend continue with Accu-Cheks before meals and at bedtime and currently being controlled with sliding scale as needed. Patient is afebrile and denies any chest pain or shortness of breath. 12/24/2021 Patient is seen today continues to be in the ICU and has been downgraded and awaiting a bed on selected unit. Cardiology following closely as patient was new-onset atrial fibrillation status post STEMI with stent placement and was maintained on IV amiodarone overnight and being transitioned to oral metoprolol along with oral amiodarone and recommend continued telemetry monitoring for another 24 hours with possible discharge tomorrow. Patient magnesium 1.7 and will replace per protocol recommend repeat labs in the morning. Patient is afebrile denies any chest pain or shortness of breath. Patient also transition to eliquis 2.5 mg twice daily and will continue. Patient is tolerating diet with no reports of nausea or vomiting noted. Patient is anxious to go home. .. 12/25/2021 Patient is seen this morning and per nursing staff was told by cardiology that he will require a LifeVest on discharge is repeat echo showed an EF of 35% and will need a LifeVest secondary to his cardiomyopathy. Patient continues to be in atrial fibrillation and heart rate is in the 90s and is maintained on oral am iodarone along with metoprolol which is being increased to 75 mg twice daily and cardiology is following closely. Patient denies any chest pain or shortness of breath, denies any dizziness or lightheadedness and has been up and walking the room with no difficulties. Patient is also maintained on Brilinta, aspirin, and eliquis and will continue on discharge. Repeat magnesium remains 1.7 and will give a dose of oral magnesium oxide. Case management following and working on paperwork for LifeVest with possible discharge in 24 hours. Review of systems: Constitutional: No reports of fatigue, fever, or chills Cardiovascular: No reports of chest pain or palpitations Respiratory: No reports of shortness of breath or cough GI: No reports of nausea, vomiting, or diarrhea : No reports of dysuria or retention Neurovascular: no reports of generalized weakness All medications have been reviewed Active Medications Al Hydroxide/Mg Hydroxide (Mag Hydrox/Al Hydrox/Simeth 30 Ml Cup) 30 ml PO Q4HR PRN PRN Reason: Heartburn Amiodarone HCl (Amiodarone 200 Mg Tab) 400 mg PO DAILY [facility] Last Admin: 12/25/21 08:47 Dose: 400 mg Apixaban (Apixaban 2.5 Mg Tablet) 2.5 mg PO BID [facility]; Protocol Last Admin: 12/25/21 08:47 Dose: 2.5 mg Aspirin (Aspirin 81 Mg) 81 mg PO DAILY [facility] Last Admin: 12/25/21 08:46 Dose: 81 mg Atorvastatin Calcium (Atorvastatin 80 Mg Tab) 80 mg PO HS [facility] Last Admin: 12/24/21 20:55 Dose: 80 mg Atropine Sulfate (Atropine Sulfate 0.1 Mg/Ml 10ml Syringe) 0.5 mg IV ONCE PRN PRN Reason: Symptomatic Bradycardia Insulin Aspart (Insulin Aspart (Novolog) 100 Unit/Ml Vial) 0 unit SQ ACHS [facility]; Protocol Last Admin: 12/25/21 12:02 Dose: Not Given Levothyroxine Sodium (Levothyroxine 50 Mcg Tab) 50 mcg PO DAILY@0630 [facility] Last Admin: 12/25/21 06:23 Dose: 50 mcg Metoprolol Tartrate (Metoprolol Tartrate 25 Mg Tab) 75 mg PO BID [facility] Miscellaneous Information (Potassium Replacement Protocol 1 Each Misc) 1 each MISCELLANE DAILY PRN; Protocol PRN Reason: Per Protocol Miscellaneous Information (Magnesium Replacement Protocol 1 Each Misc) 1 each MISCELLANE DAILY PRN; Protocol PRN Reason: Per Protocol Morphine Sulfate (Morphine Sulfate 2 Mg/Ml Syringe) 2 mg IVP Q4HR PRN PRN Reason: Pain/Discomfort Last Admin: 12/21/21 14:09 Dose: 2 mg Nitroglycerin (Nitroglycerin Sl Tabs 0.4 Mg Tab) 0.4 mg SUBLINGUAL Q5M PRN PRN Reason: Chest Pain Pantoprazole Sodium (Pantoprazole 40 Mg Tablet) 40 mg PO AC-BRKFST [facility] Last Admin: 12/25/21 06:23 Dose: 40 mg Tamsulosin HCl (Tamsulosin 0.4 Mg Cap.Er.24h) 0.8 mg PO HS [facility] Last Admin: 12/24/21 20:55 Dose: 0.8 mg Ticagrelor (Ticagrelor 90 Mg Tab) 90 mg PO BID [facility]; Protocol Last Admin: 12/25/21 08:47 Dose: 90 mg Zolpidem Tartrate (Zolpidem 5 Mg Tab) 5 mg PO HS PRN PRN Reason: Insomnia Physical exam: GENERAL: The patient is alert and oriented x3, not in any acute distress. Well developed, well nourished. HEENT: Pupils are round and equally reacting to light. EOMI. No scleral icterus. No conjunctival pallor. Normocephalic, atraumatic. No pharyngeal erythema. No thyromegaly. CARDIOVASCULAR: S1 and S2 present. No murmurs, rubs, or gallops. PULMONARY: Chest is clear to auscultation, no wheezing or crackles. ABDOMEN: Soft, nontender, nondistended, normoactive bowel sounds. No palpable organomegaly. MUSCULOSKELETAL: No joint swelling or deformity. EXTREMITIES: No cyanosis, clubbing, or pedal edema. NEUROLOGICAL: Gross neurological examination did not reveal any focal deficits. SKIN: No rashes. no petechiae. Assessment: Acute inferior posterior STEMI status post PCI to first OM branch Atrial fibrillation with RVR new onset Ischemic cardiomyopathy with an EF of 35% Diabetes mellitus, type II Hypomagnesemia Hypertension Hypothyroidism History of GERD History of benign prostatic hypertrophy History of PE on anticoagulation GI prophylaxis DVT prophylaxis Full code Plan: Recommend continue with current medications and management per cardiology services. Patient was new onset atrial fibrillation with rapid ventricular rate That is post STEMI with stent placement and also thrombectomy a large clot burden noted on cardiac catheterization. patient has been transitioned to oral amiodarone along with metoprolol which is being increased to 75 mg twice a day, and is being anticoagulated with eliquis 2.5mg bid along with Brilinta and aspirin. Patient will need close outpatient follow-up with cardiology and primary care provider Dr. Browning. Patient is currently out of the ICU and being monitored on 3 S. recommending LifeVest prior to discharge per cardiology. Case management following an providing paperwork and information to submit to [employer] company Recommend continue telemetry monitoring close monitoring of vital signs overnight with possible discharge in 24 hours Continue with metoprolol and MALLORY inhibitor and statin Recommend continue monitoring Accu-Cheks before meals and at bedtime and will continue to use sliding scale and hold metformin and Januvia for now Possible discharge in 24 hours once patient has received his LifeVest with education and training. The impression and plan of care has been dictated by Meredith Alfred, Nurse Practitioner as directed. Dr. Iron MD I have performed a history and examination and MDM of this patient, discussed the same with the dictator, and agree with the dictator's assessment and plan as written ,documented as a scribe. Based on total visit time, I have performed more than 50% of the visit. Objective - Vital Signs Vital signs: Vital Signs Temp 97.8 F 12/25/21 08:00 Pulse 65 12/25/21 08:00 Resp 17 12/25/21 08:00 BP 115/61 12/25/21 08:00 Pulse Ox 98 12/25/21 08:00 FiO2 2 12/22/21 12:00 Intake & Output 12/24/21 12/25/21 12/25/21 18:59 06:59 18:59 Intake Total 259.449 118 Output Total 0 Balance 259.449 118 Intake: Intake, IV Titration 259.449 Amount Amiodarone 450 mg In 259.449 Dextrose 5% in Water 250 ml @ 0.5 MG/MIN 16.667 mls/hr IV .Q15H [facility] Rx#: [id number] Oral 118 Output: Urine 0 Other: Voiding Method Toilet Toilet Toilet Urinal Urinal Urinal # Voids 1 1 - Labs CBC & Chem 7: 12/24/21 05:47 12/24/21 05:47 Labs: Abnormal Lab Results - Last 24 Hours (Table) 12/24/21 12/24/21 12/24/21 Range/Units 11:44 16:05 20:06 POC Glucose (mg/dL) 124 H 112 H 114 H (70-110) mg/dL 12/25/21 Range/Units 05:40 POC Glucose (mg/dL) 188 H (70-110) mg/dL
[2021-12-25 16:25] LABS: Glucose,Whole Blood 112 mg/dL (70-110)
[2021-12-25 21:38] LABS: Glucose,Whole Blood 111 mg/dL (70-110)
[2021-12-25] MEDS: METOPROLOL TARTRATE 25 MG TAB PO SCH (21:41)
[2021-12-25] MEDS: TAMSULOSIN 0.4 MG CAP.ER.24H PO SCH (21:41)
[2021-12-25] MEDS: ATORVASTATIN 80 MG TAB PO SCH (21:41)
[2021-12-26 06:16] LABS: Glucose,Whole Blood 121 mg/dL (70-110)
[2021-12-26] MEDS: PANTOPRAZOLE 40 MG TABLET PO SCH (06:49)
[2021-12-26] MEDS: INSULIN ASPART (NovoLOG) 100 UNIT/ML VIAL SQ SCH ×3 (06:50→17:06)
[2021-12-26] MEDS: LEVOTHYROXINE 50 MCG TAB PO SCH (06:50)
--- NOTE | 2021-12-26 08:32 | CDI ---
Documentation Clarification Form Date: 12/26/2021 08:14:34 AM From: Viviane Larson CCS, CCDS Admit Date: 12/21/2021 10:58:00 AM Patient Name: Bull Rosales Visit Number: [id number] Discharge Date: ATTENTION: The Clinical Documentation Specialists (CDI) and [facility] Coding Staff appreciate your assistance in clarifying documentation. Please respond to the clarification below the line at the bottom and electronically sign. The CDI & [facility] Coding staff will review the response and follow-up if needed. Please note: Queries are made part of the Legal Health Record. If you have any questions, please contact the author of this message via ITS. Dr. Toni Smith: New onset Atrial Fibrillation is documented in the 12/23 Attending Physician Progress Note and also in the 12/24 Cardiology Progress Note: Atrial Fibrillation with heart rates in the low 100s. Per 12/25 Attending & Cardiology Progress Notes: remains in Atrial Fibrillation with heart rates in 100s, patient will need a LifeVest prior to discharge home for ischemic cardiomyopathy. Additional clarification regarding the Type of Atrial Fibrillation is requested. History/Risk Factors per the 12/22 H/P: DM, Hyperlipidemia, Hypertension, Osteoarthritis, PE, non smoker. Clinical Indicators: Presented to the ED on 12/21 with acute chest pain radiating to his right arm, patient took Aspirin & Nitro on the way with decrease in pain, did have nausea and mildly SOB. Admit with STEMI, taken to the [facility]. 12/21 VS: T 98.1, P 65, R 18, BP 166/99, PO 96 2Lnc, BMI: 33.7 12/21 HR: 65, 56, 63 12/22: 55, 52, 64, 53, 70, 55 12/23: 63, 57, 130, 105, 100 12/24: 103, 105, 76 12/21 LAB: BUN 25, Glucose 160, Magnesium 1.3, Troponin 0.489 12/21 CXR: Cardiomegaly with pulmonary venous congestion and mild interstitial edema suggested. Trace fluid within the right minor fissure. 12/21 ECHO: Reduced LV systolic function posterior wall akinesis. Left ventricular EF 35%. Treatment 12/21: To [facility] for Heart Cath, PTCA with stent 1st Circumflex. Telemetry, Blood glucose monitoring, O2 2Lnc, IV Heparin, Nitro sl 0.4 mg x1, Nitro-Bid Topical x1, IV Na Chl 500 mls @ 999 mls/hr q31M, IV Atropine 0.5 mg x1, IV Morphine 2 mg q4H/prn, IV Na Chl 1,000 mls @ 75 mls/hr q13H. 12/22: po Brillinta 90 mg BID, IV Mag Sulfate/Dextrose 100 mls @ 100 mls/hr q1H, po Xarelto 2.5 mg BID 12/23: IV Mag Sulfate/Dextrose 100 mls @ 100 mls/hr q1H, IV Dextrose/Water w/Amiodarone 256 mls @ 128 mls/hr q2H, po Eliquis 12/24: IV Mag Sulf/Dextrose, po KDur, po Cordarone 400 mg Daily, po Lopressor 50 mg BID Please clarify the type of atrial fibrillation, if known: [ xx ] Unable to determine, recent onset atrial fibrillation unable to determine the nature of atrial fibrillation at such an early stage (Template Last Revised: October 2020) MTDD
--- NOTE | 2021-12-26 08:42 | CDI ---
Documentation Clarification Form Date: 12/26/2021 08:36:00 AM From: Viviane Larson CCS, CCDS Admit Date: 12/21/2021 10:58:00 AM Patient Name: Bull Rosales Visit Number: [id number] Discharge Date: ATTENTION: The Clinical Documentation Specialists (CDI) and [facility] Coding Staff appreciate your assistance in clarifying documentation. Please respond to the clarification below the line at the bottom and electronically sign. The CDI & [facility] Coding staff will review the response and follow-up if needed. Please note: Queries are made part of the Legal Health Record. If you have any questions, please contact the author of this message via ITS. Dr. Gonzalez Britt: Diabetes Mellitus is documented in the patient's Medical History beginning in the 12/21 ED Note. The patient is Non-Insulin Dependent on Metformin 1,000 mg po BID. Additional specificity regarding the diabetes diagnosis is requested. History/Risk Factors per the 12/22 H/P: DM, Hyperlipidemia, Hypertension, Osteoarthritis, PE, non smoker. Clinical Indicators: Presented to the ED on 12/21 with acute chest pain radiating to his right arm, patient took Aspirin & Nitro on the way with decrease in pain, did have nausea and mildly SOB. Admit with STEMI, taken to the [facility]. 12/21 VS: T 98.1, P 65, R 18, BP 166/99, PO 96 2Lnc, BMI: 33.7 12/21 LAB: BUN 25, Magnesium 1.3, Troponin 0.489 Glucose: 12/21: 160, 12/22: 109, 12/23: 118, 12/24: 125 12/21 CXR: Cardiomegaly with pulmonary venous congestion and mild interstitial edema suggested. Trace fluid within the right minor fissure. 12/21 ECHO: Reduced LV systolic function posterior wall akinesis. Left ventricular EF 35%. Treatment 12/21: To [facility] for Heart Cath, PTCA with stent 1st Circumflex. Telemetry, Blood glucose monitoring, O2 2Lnc, IV Heparin, Nitro sl 0.4 mg x1, Nitro-Bid Topical x1, IV Na Chl 500 mls @ 999 mls/hr q31M, IV Atropine 0.5 mg x1, IV Morphine 2 mg q4H/prn, IV Na Chl 1,000 mls @ 75 mls/hr q13H. 12/22: po Brillinta 90 mg BID, IV Mag Sulfate/Dextrose 100 mls @ 100 mls/hr q1H, po Xarelto 2.5 mg BID 12/23: IV Mag Sulfate/Dextrose 100 mls @ 100 mls/hr q1H, IV Dextrose/Water w/Amiodarone 256 mls @ 128 mls/hr q2H, po Eliquis 12/24: IV Mag Sulf/Dextrose, po KDur, po Cordarone 400 mg Daily, po Lopressor 50 mg BID Please clarify the following re the patient's Diabetes: [ ] Diabetes Type 2 with Hyperglycemia [ x] Diabetes Type 2 without Hyperglycemia [ ] Other, please specify [ ] Unable to Determine (Template Last Revised: August 2020) MTDD
[2021-12-26] MEDS ORDERED: MAGNESIUM OXIDE 400 MG TAB PO SCH (09:00)
[2021-12-26] MEDS: APIXABAN 2.5 MG TABLET PO SCH (09:35)
[2021-12-26] MEDS: TICAGRELOR 90 MG TAB PO SCH (09:36)
[2021-12-26] MEDS: AMIODARONE 200 MG TAB PO SCH (09:36)
[2021-12-26] MEDS: ASPIRIN 81 MG PO SCH (09:36)
[2021-12-26] MEDS: METOPROLOL TARTRATE 25 MG TAB PO SCH (09:36)
[2021-12-26 09:40] VITALS: RESP 16
--- NOTE | 2021-12-26 11:15 | P.PN ---
Subjective Progress Note Date: 12/26/21 HISTORY OF PRESENT ILLNESS: The patient is a 71-year-old male who is currently admitted to the hospital with ST elevated myocardial infarction with occlusion of left circumflex. Aspiration thrombectomy and balloonplasty was attempted, but unsuccessful due to tortuosity. Subsequent stenting of lower OM1 and balloon angioplasty of the upper subbranch was performed. Residual thrombus was treated with Aggrastat. Yesterday the patient developed A. fib with RVR. Unfortunately he did not convert to sinus rhythm with amiodarone bolus, therefore has continued on IV drip overnight. The patient remains in A. fib this morning with heart rates in the low 100s. The patient states he remains completely asymptomatic despite being in atrial fibrillation He was up ambulating to the restroom without dizziness, lightheadedness, or dyspnea. He denies any weakness or fatigue. He states he rested well overnight 12/25/2021 Patient examined this morning at the bedside. Patient denies chest pain or pressure. Denies SOB. He remains in atrial fibrillation with a heart rate in the 90s. Blood pressure 126/68. Echocardiogram completed revealing ejection fraction 35%. 12/26/2021 Patient examined this morning at the bedside. She denies chest pain or pressure. He denies shortness of breath. He remains in atrial fibrillation with controlled ventricular rates. Vital signs are stable. PHYSICAL EXAM: VITAL SIGNS: Reviewed. GENERAL: Well-developed in no acute distress. NECK: Supple. No JVD or thyromegaly LUNGS: Respirations even and unlabored. Lungs essentially clear to auscultation bilaterally. HEART: Irregular rate and rhythm. S1 and S2 heard. EXTREMITIES: Normal range of motion. No clubbing or cyanosis. Peripheral pulses intact. No lower extremity edema ASSESSMENT: STEMI, s/p PCI of OM1 with very large thrombus burden Inadequate reconstitution of artery secondary to large thrombus burden Status post aspiration thrombectomy of left circumflex New onset persistent atrial fibrillation with RVR Ischemic cardiomyopathy, EF 35% Hypertension Diabetes PLAN: Continue current cardiac medications Continue triple therapy for 1 month Patient will require LifeVest at the time of discharge secondary to cardiomyopathy to prevent sudden cardiac Patient may be discharged home this afternoon from a cardiac standpoint with close outpatient follow-up Nurse practitioner note has been reviewed by physician. Signing provider agrees with the documented findings, assessment, and plan of care. Objective - Vital Signs Vital signs: Vital Signs Temp 97.2 F L 12/26/21 08:20 Pulse 70 12/26/21 08:20 Resp 16 12/26/21 08:20 BP 107/70 12/26/21 08:20 Pulse Ox 98 12/26/21 08:20 FiO2 2 12/22/21 12:00 Intake & Output 12/25/21 12/26/21 12/26/21 18:59 06:59 18:59 Intake Total 776 Balance 776 Weight 100.4 kg Intake: Oral 776 Other: Voiding Method Toilet Urinal # Voids 1 1 1 - Labs CBC & Chem 7: 12/24/21 05:47 12/24/21 05:47 Labs: Abnormal Lab Results - Last 24 Hours (Table) 12/25/21 12/25/21 12/26/21 Range/Units 16:23 21:37 06:15 POC Glucose (mg/dL) 112 H 111 H 121 H (70-110) mg/dL
[2021-12-26 12:12] LABS: Glucose,Whole Blood 110 mg/dL (70-110)
[2021-12-26 13:08] VITALS: BP 111/68; PULSE 61; TEMP 97.6
[2021-12-26 16:46] LABS: Glucose,Whole Blood 132 mg/dL (70-110)
== END 2021-12-26 18:47 | disposition home or self-care (01) | DRG 247 ==
LOC: EC 10:48 → 2SICU 10:58 → 3SCARD 12-24 14:54
PROVIDERS: ADMIT Hospitalist; ATTEND Hospitalist
PROC: 0270346 Dilation of Coronary Artery, One Artery, Bifurcation, with Drug-eluting Intraluminal Device, Percutaneous Approach (ICD-10-PCS; principal; 2021-12-21 11:06)
PROC: B2111ZZ Fluoroscopy of Multiple Coronary Arteries using Low Osmolar Contrast (ICD-10-PCS; principal; 2021-12-21 11:06)
PROC: 3E033PZ Introduction of Platelet Inhibitor into Peripheral Vein, Percutaneous Approach (ICD-10-PCS; 2021-12-21 11:06)
DX: I21.19 ST elevation (STEMI) myocardial infarction involving other coronary artery of inferior wall (principal); I48.19 Other persistent atrial fibrillation; E03.9 Hypothyroidism, unspecified; I10 Essential (primary) hypertension; E83.42 Hypomagnesemia; I25.5 Ischemic cardiomyopathy; E78.00 Pure hypercholesterolemia, unspecified; K21.9 Gastro-esophageal reflux disease without esophagitis; N40.0 Benign prostatic hyperplasia without lower urinary tract symptoms; K44.9 Diaphragmatic hernia without obstruction or gangrene; M19.90 Unspecified osteoarthritis, unspecified site; Z79.890 Hormone replacement therapy; Z79.1 Long term (current) use of non-steroidal anti-inflammatories (NSAID); Z79.84 Long term (current) use of oral hypoglycemic drugs; Z79.899 Other long term (current) drug therapy; Z96.651 Presence of right artificial knee joint; Z86.711 Personal history of pulmonary embolism; Z87.442 Personal history of urinary calculi; Z91.040 Latex allergy status; Z83.2 Family history of diseases of the blood and blood-forming organs and certain disorders involving the immune mechanism; E11.9 Type 2 diabetes mellitus without complications
CPT/HCPCS: 71045; 80048; 80053; 83036; 83735; 84443; 84484; 85025; 85610; 85730; 93005; 93306; 93458; 96374; 99291

== ENCOUNTER → 2022-09-29 | Outpatient (CLI) | payer MEDICARE, OTHER ==
[2022-09-29 15:47] LABS: African American GFR (CKD) 38.7 (60.0-200.0); Albumin/Globulin Ratio 1.42 (1.60-3.17); Anion Gap 8.2 mmol/L (10.00-18.00); BUN/Creat Ratio 14.41 Ratio (12.00-20.00); Blood Urea Nitrogen 28.1 mg/dL (9.0-27.0); Calcium 9.1 mg/dL (8.7-10.3); Carbon Dioxide 27.4 mmol/L (20.0-27.5); Globulin 2.9 g/dL (1.6-3.3); Non-African American GFR(CKD) 33.4 (60.0-200.0); Potassium 4.7 mmol/L (3.5-5.5); Total Bilirubin 0.5 mg/dL (0.30-1.20); Total Protein 6.9 g/dL (6.2-8.2)
[2022-09-29 20:28] LABS: Creatinine 24 Hour,Urine 1696.8 mg/24hr (1000.0-2000.0)
[2022-09-30 05:35] LABS: Total Volume 24 Hour,Urine 2800 mL
== END | disposition home or self-care (01) ==
LOC: LABWHC1 09:31
PROVIDERS: ATTEND Family Medicine
DX: E11.22 Type 2 diabetes mellitus with diabetic chronic kidney disease (principal); N18.30 Chronic kidney disease, stage 3 unspecified
CPT/HCPCS: 36415; 80053; 81050; 82575; 83036; 83970; 84156

== ENCOUNTER → 2023-05-22 | Outpatient (CLI) | payer MEDICARE, OTHER ==
--- NOTE | 2023-05-22 15:14 | US ---
EXAMINATION TYPE: US venous doppler duplex LE BI DATE OF EXAM: 05/22/2023 2:46 PM COMPARISON: NONE CLINICAL INDICATION: Male, 72 years old with history of R60.0 EDEMA; Left leg swelling. On blood thi nners. SIDE PERFORMED: Bilateral TECHNIQUE: The lower extremity deep venous system is examined utilizing real time linear array sonog sindhu with graded compression, doppler sonography and color-flow sonography. VESSELS IMAGED: Common Femoral Vein Deep Femoral Vein Greater Saphenous Vein * Femoral Vein Popliteal Vein Small Saphenous Vein * Proximal Calf Veins (* superficial vessels) Right Leg: Negative for DVT Left Leg: Negative for DVT IMPRESSION: No evidence for DVT within the bilateral lower extremities imaged from the groin to the upper calves.
== END | disposition home or self-care (01) ==
LOC: RADUSWWP 14:20
PROVIDERS: ATTEND Family Medicine
DX: R60.0 Localized edema (principal); Z79.01 Long term (current) use of anticoagulants
CPT/HCPCS: 93970

== ENCOUNTER → 2023-12-15 | Outpatient (CLI) | payer MEDICARE, OTHER ==
[2023-12-15 17:26] LABS: Blood Urea Nitrogen 25.4 mg/dL (9.0-27.0); Carbon Dioxide 23.2 mmol/L (21.6-31.8); Chloride 104 mmol/L (96-109); Potassium 4.5 mmol/L (3.5-5.5); Sodium 140 mmol/L (135-145)
[2023-12-15 17:47] LABS: HCT 43.9 % (39.6-50.0); HGB 14.1 g/dL (13.0-17.0); MCH 28.3 pg (27.0-32.0); MCHC 32.1 g/dL (32.0-37.0); Mean Platelet Volume 10.4 FL (9.5-12.2); NRBC Per 100 WBC 0 X 10*3/uL (0.00-0.01); Platelet Count 159 X 10*3/uL (140-440); RBC 4.99 X 10*6/uL (4.40-5.60); RDW 16.3 % (11.5-14.5); WBC 7.12 X 10*3/uL (4.50-10.00)
== END | disposition home or self-care (01) ==
LOC: LABPAT 09:42
PROVIDERS: ATTEND Internal Medicine Clinical Cardiac Electrophysiology
DX: Z01.812 Encounter for preprocedural laboratory examination (principal); I25.10 Atherosclerotic heart disease of native coronary artery without angina pectoris; I48.0 Paroxysmal atrial fibrillation; I25.5 Ischemic cardiomyopathy
CPT/HCPCS: 36415; 80051; 82565; 84520; 85027

== ENCOUNTER 2023-12-24 09:25 | Day surgery (SDC) | payer MEDICARE, OTHER ==
[~2023-12-24 09:25] MED LIST changes: +HYDROmorphone 0.5 MG/0.5 ML SYRINGE IVP PRN; -IV FLUID CONTINUATION 1,000 ML IV ONE; +LIDOCAINE 1% (10MG/ML) FOR IV START INTRADERMA PRN; +ONDANSETRON 4 MG/2 ML VIAL IVP PRN; -SODIUM CHLORIDE 0.9% 1,000 ML IV ONE
[2023-12-24] MEDS ORDERED: LIDOCAINE 1% INJ 10MG/ML (20 ML MDV) ONE ×3 (09:37→16:44)
[2023-12-24] MEDS: SODIUM CHLORIDE 0.9% 1,000 ML IV SCH (09:52)
[2023-12-24] MEDS: IV FLUID CONTINUATION 1,000 ML IV ONE (09:52)
[2023-12-24 09:55] LABS: Glucose,Whole Blood 157 mg/dL (70-110)
[2023-12-24 10:14] LABS: ALT 25 U/L (4-49); AST 31 U/L (17-59); African American GFR (CKD) 59 (>60 ml/min/1.73 sqM); Alkaline Phosphatase 104 U/L (38-126); Anion Gap 9 mmol/L; Blood Urea Nitrogen 28 mg/dL (9-20); Calcium 8.7 mg/dL (8.4-10.2); Carbon Dioxide 19 mmol/L (22-30); Chloride 112 mmol/L (98-107); Glucose 174 mg/dL (74-99); Non-African American GFR(CKD) 51 (>60 ml/min/1.73 sqM); Potassium 4.1 mmol/L (3.5-5.1); Sodium 140 mmol/L (137-145); Total Bilirubin 0.9 mg/dL (0.2-1.3); Total Protein 7.1 g/dL (6.3-8.2)
[2023-12-24] MEDS ORDERED: fentaNYL (PF) 50 MCG/ML 2 ML AMP ONE (11:20)
[2023-12-24] MEDS ORDERED: PROPOFOL 10 MG/ML 20 ML VIAL IV ONE (11:20)
[2023-12-24] MEDS ORDERED: PHENYLEPHRINE-0.9% NACL SYG 1,000 MCG/10 ML SYRINGE ONE (11:20)
[2023-12-24] MEDS ORDERED: WATER FOR INJECTION, STERILE 10 ML VIAL IV ONE (11:20)
[2023-12-24] MEDS ORDERED: ePHEDrine 50 MG/ML 1 ML VIAL ONE (11:20)
[2023-12-24] MEDS ORDERED: diphenhydrAMINE 50 MG/ML 1 ML VIAL ONE (11:20)
[2023-12-24] MEDS ORDERED: HEPARIN SODIUM,PORCINE 10,000 UNIT/ML 1 ML VIAL ONE (11:20)
[2023-12-24] MEDS ORDERED: SUCCINYLCHOLINE CHLORIDE 200 MG/10 ML VIAL IV ONE (11:20)
[2023-12-24] MEDS ORDERED: PHENYLEPHRINE 10 MG/ML VIAL ONE (11:20)
[2023-12-24] MEDS ORDERED: PROTAMINE SULFATE 10 MG/ML 5 ML VIAL ONE ×2 (11:20→15:35)
[2023-12-24] MEDS: HEPARIN SOD,PORK IN 0.45% NACL 25,000 UNIT in 0.45% NACL 1 250ML.BAG IV ONE (12:00)
[2023-12-24] MEDS: LIDOCAINE 1% INJ 10MG/ML (20 ML MDV) SQ ONE (12:10)
[2023-12-24] MEDS: HEPARIN SODIUM,PORCINE (1 ML) 2,500 UNIT in SODIUM CHLORIDE 0.9% 250 ML IRRIGATION ONE (12:13)
[2023-12-24] MEDS: HEPARIN SODIUM,PORCINE 10,000 UNIT in SODIUM CHLORIDE 0.9% 1,000 ML IRRIGATION ONE (12:13)
[2023-12-24] MEDS: HEPARIN SODIUM (1,000 UNIT/ML) 1,000 UNIT in SODIUM CHLORIDE 0.9% 1,000 ML IRRIGATION ONE (14:15)
[2023-12-24] MEDS: IOPAMIDOL-250 100ML BTL IVP ONE (14:24)
[2023-12-24] MEDS: PROTAMINE SULFATE 10 MG/ML 5 ML VIAL IV ONE (15:37)
[2023-12-24] MEDS: SODIUM CHLORIDE 0.9% 1,000 ML IV ONE (15:55)
--- NOTE | 2023-12-24 15:59 | P.HPCAR ---
History of Present Illness This is Dr. Smith dictating an H/P on this patient The patient was interviewed and examined IMPRESSION / ASSESSMENT: Symptomatic recurrent atrial fibrillation, mostly paroxysmal in nature but with long paroxysms Hypertension Diabetes History of ST elevation [place] in 2 years back Ischemic cardiomyopathy PLAN: A-fib ablation Continue anticoagulation HPI Patient remains in atrial fibrillation with long paroxysms He has known ischemic heart disease with an ST elevation [place] in 2021 with a large thrombus burden at that time He has had frequent episodes of atrial fibrillation that was detected on the loop monitor. There is a long paroxysms and symptomatic Denies any recent syncope chest pain undue shortness of breath while resting ROS: No fever chills or rigors, no cough, phlegm or expectoration, no nausea, vomiting or diarrhea, no hematuria, dysuria, no musculoskeletal complaints, no strokes or seizures, no skin lesions. EXAMINATION: In atrial fibrillation today resting heart rate 101 beats a minute afebrile Blood pressure 125/76 mmHg Heart sounds are irregular Lungs are clear No lower extremity edema REVIEW OF LABS, ECG & MEDICAL DATA Sodium 140 potassium 4.1 BUN 28 and creatinine 1.36 Elevated glucose TSH normal 1.6 Physical Exam Vitals: Vital Signs Temp Pulse Resp BP Pulse Ox 12/24/23 09:50 97.7 F 101 H 18 125/76 96 Intake and Output 12/24/23 12/24/23 12/24/23 06:59 14:59 22:59 Intake Total 1299 Balance 1299 Intake: IV 1299 Other: Weight 121.4 kg Past Medical History Past Medical History: Atrial Fibrillation, Coronary Artery Disease (CAD), Diabetes Mellitus, GERD/Reflux, Hyperlipidemia, Hypertension, Myocardial Infarction (TX), Osteoarthritis (OA), Pulmonary Embolus (PE), Thyroid Disorder Additional Past Medical History / Comment(s): See Dr. Smith's H&P; HIATAL HERNIA, ULCER, kidney stones, CKD, PE about 5 yrs ago, [place] 2 yrs ago Last Myocardial Infarction Date:: 2021 History of Any Multi-Drug Resistant Organisms: None Reported Past Surgical History: Heart Catheterization With Stent, Hernia Repair, Joint Replacement Additional Past Surgical History / Comment(s): right knee replaced, UMBILICAL HERNIA, colonoscopy 5-6 yrs ago, loop recorder, bunion removed Past Anesthesia/Blood Transfusion Reactions: Motion Sickness, Postoperative Nausea & Vomiting (PONV) Date of Last Stent Placement:: 2021 Smoking Status: Never smoker - Past Family History Son(s) Family Medical History: Deep Vein Thrombosis (DVT) Physical Examination Vital Signs Temp Pulse Resp BP Pulse Ox 12/24/23 09:50 97.7 F 101 H 18 125/76 96 Intake and Output 12/24/23 12/24/23 12/24/23 06:59 14:59 22:59 Intake Total 1299 Balance 1299 Intake: IV 1299 Other: Weight 121.4 kg Results 12/24/23 09:15 Cardiac Enzymes 12/24/23 Range/Units 09:15 AST 31 (17-59) U/L Comprehensive Metabolic Panel 12/24/23 Range/Units 09:15 Sodium 140 (137-145) mmol/L Potassium 4.1 (3.5-5.1) mmol/L Chloride 112 H (98-107) mmol/L Carbon Dioxide 19 L (22-30) mmol/L BUN 28 H (9-20) mg/dL Creatinine 1.36 H (0.66-1.25) mg/dL Glucose 174 H (74-99) mg/dL Calcium 8.7 (8.4-10.2) mg/dL AST 31 (17-59) U/L ALT 25 (4-49) U/L Alkaline Phosphatase 104 (38-126) U/L Total Protein 7.1 (6.3-8.2) g/dL Albumin 4.0 (3.5-5.0) g/dL Current Medications Generic Name Dose Route Start Last Admin Trade Name Freq PRN Reason Stop Dose Admin Hydromorphone HCl 0.5 mg 12/24/23 05:58 Hydromorphone 0.5 Mg/0.5 Ml Syringe IVP 12/24/23 23:00 Q5M PRN Phase 1 or 2 - Pain Control Lactated Ringer's 1,000 mls @ 20 mls/hr 12/24/23 05:58 Lactated Ringers IV 01/23/24 05:57 .Q24H ISMA Sodium Chloride 1,000 mls @ 50 mls/hr 12/24/23 05:58 12/24/23 09:52 Saline 0.9% IV 01/23/24 05:57 50 mls/hr .Q20H ISMA Administration Lidocaine HCl 0.1 ml 07/18/24 05:58 Lidocaine 1% (10mg/Ml) For Iv Start INTRADERMA 01/23/24 05:57 PER PROTOCOL PRN IV Start Ondansetron HCl 4 mg 12/24/23 05:58 Ondansetron 4 Mg/2 Ml Vial IVP 12/24/23 23:00 ONCE PRN Phase 1 or 2 - Nausea/Vomiting Intake and Output 12/24/23 12/24/23 12/24/23 06:59 14:59 22:59 Intake Total 1299 Balance 1299 Intake: IV 1299 Other: Weight 121.4 kg Patient Weight 12/25/23 06:59 Weight 121.4 kg 12/24/23 09:15
[2023-12-24] MEDS: SILVER NITRATE APPLICATOR 1 EACH STICK..EA. TOPICAL ONE (16:05)
--- NOTE | 2023-12-24 16:10 | P.EPPROC ---
- EP Procedure Note Electrophysiology Procedure Note: PROCEDURE A. fib ablation with pulmonary vein isolation, left atrial septal ablation and left atrial roof ablation DIAGNOSIS Long paroxysms of atrial fibrillation, symptomatic, refractory to therapy, known CAD status post stenting RESULT No left atrial appendage mass seen on intracardiac echo, thickened pericardium with exudative pericarditis Preserved LV systolic function, aortic root and ascending aorta about 4 cm on intracardiac echo Enlarged left atrium Successful A. fib ablation/pulmonary vein isolation of all veins using cryo- ablation Complete entrance block in all 4 veins confirmed Left atrial septal ablation Left atrial roof ablation No evidence for phrenic nerve injury Esophageal deflection NO Patient remained in atrial fibrillation Electrical cardioversion with a synchronized shock across the chest YES PROCEDURE DETAILS Written informed consent prior to procedure. Patient brought to the EP lab. General anesthesia given. Heparin administered. A city maintained above 300 seconds Both groins prepped and draped per protocol and venous sheaths placed. Esophagus intubated, circa catheter for temperature monitoring an endoscope for possible esophageal deflection. Phrenic nerve monitoring performed. Esophageal temperature monitoring performed. Esophageal deflection performed if circa catheter overlapping with the balloon or circa temperature less than 27.5C Intracardiac echocardiography performed. Pericardium evaluated. Left atrial appendage evaluated. Left atrium evaluated along with pulmonary veins Transseptal catheterization performed under fluoroscopic guidance and intracardiac echo guidance Cryoablation sheath exchanged, balloon catheter along with achieve catheter placed in the left atrium. Pulmonary veins isolated in the following sequence: Left superior pulmonary vein followed by left inferior pulmonary vein, followed by right inferior pulmonary vein and lastly right superior pulmonary vein. Phrenic nerve stimulation along with capture thresholds within the SVC and right superior pulmonary vein to identify the phrenic nerve proximity to the cryo- balloon. Pulmonary veins isolated and confirmed with entrance and exit block. Phrenic nerve integrity confirmed at the end of the procedure Ablation of the left atrial roof performed with sequential lesions from the left superior to the right superior pulmonary veins. Ablation of the electrograms confirmed Ablation of the left atrial septum performed with cannulation of the inferior branch of the right superior vein to achieve ablation of the posterior septum of the left atrium. Ablation of electrograms confirmed Electrical cardioversion performed for persistence of atrial fibrillation despite successful ablation. The left atrium was enlarged, with large pulmonary veins with a wide franklin in between Voltage mapping revealed complete isolation of the pulmonary veins with voltage in the carinal segment between the right superior and right inferior pulmonary veins as well as between the left-sided veins RF ablation was performed in the franklin and the area was rendered quiescent Left atrial septal ablation was performed and completed more anteriorly Diagnostic catheters for the high right atrium, His bundle, coronary sinus placed. LA and RA pressures recorded RA pressure: 13 LA pressure: 2414 Diagnostic EP study with coronary sinus pacing and recording AH 90 and HV 46 ms Baseline measurements: Venous sheaths were removed and hemostasis assured with a closure device. Patient extubated and transferred to recovery Increase procedural time Very large left atrium with large pulmonary veins It took multiple attempts to occlude the right superior and right inferior pulmonary veins as well as the left inferior pulmonary veins In addition the pulmonary veins separate with a wide area of franklin in between that required separate ablation The left atrial roof was long and required multiple sequential ablations for completion Voltage mapping at the end revealed quiescence of all ablated areas On account of the anatomical variations, this took extra time for ablation PROCEDURES PERFORMED Diagnostic EP study CS pacing and recording Left and right transseptal catheterization Catheter the mapping of the tachycardia Intracardiac echocardiography Pulmonary vein isolation with transseptal and comprehensive EPS, 73107 Extended procedure duration Left atrial roof line, +99937 Linear ablation, left atrium, +10001 Electrical cardioversion with a synchronized shock across the chest [id number]
--- NOTE | 2023-12-24 16:12 | P.PRLE ---
RE: Bull Rosales Dear Homar Mr. Rosales underwent an A-fib ablation with pulm vein isolation, left atrial septal ablation ablation of the left franklin and left atrial roof. He will continue Eliquis 5 mg twice daily for 1 to 2 weeks and then decrease the dose back down to 2.5 mg twice daily since he also takes Plavix He tolerated the procedure well without any acute complications Thank you for entrusting me with the care of the patient Warm regards Sincerely Toni Smith [facility] [employer] tech
[2023-12-24 16:44] LABS: Glucose,Whole Blood 132 mg/dL (70-110)
[2023-12-24] MEDS: DEXAMETHASONE SOD PHOSPHATE 4 MG/ML 1 ML VIAL IV ONE (17:05)
[2023-12-24] MEDS: ONDANSETRON 4 MG/2 ML VIAL IVP ONE (17:05)
[2023-12-24] MEDS: LACTATED RINGERS 1,000 ML IV SCH (17:05)
[2023-12-24] MEDS: ACETAMINOPHEN IV (For NPO) 1,000 MG in EMPTY BAG 1 BAG IVPB ONE (18:17)
[2023-12-24] MEDS: APIXABAN 5 MG TAB PO SCH (19:52)
[2023-12-24] MEDS: TAMSULOSIN 0.4 MG CAP.ER.24H PO SCH (19:52)
[2023-12-24] MEDS: carvediloL 3.125 MG TAB PO SCH (19:52)
[2023-12-24] MEDS: ATORVASTATIN 80 MG TAB PO SCH (19:53)
[2023-12-24 20:21] LABS: Glucose,Whole Blood 144 mg/dL (70-110)
[2023-12-24] MEDS: ACETAMINOPHEN TAB 325 MG TAB PO PRN (20:50)
[2023-12-24 21:11] VITALS: RESP 16
[2023-12-25 03:23] VITALS: PULSE 76
[2023-12-25 05:51] LABS: Glucose,Whole Blood 119 mg/dL (70-110)
[2023-12-25] MEDS: LEVOTHYROXINE 50 MCG TAB PO SCH (06:37)
[2023-12-25 07:33] LABS: Basophils % (A) 0 %; Eosinophils # (A) 0.2 k/uL (0-0.7); Eosinophils % (A) 3 %; HCT 38.9 % (39.0-53.0); HGB 12.5 gm/dL (13.0-17.5); Hypochromasia Moderate; Lymphocytes % (A) 22 %; MCH 28.6 pg (25.0-35.0); MCHC 32.2 g/dL (31.0-37.0); MCV 88.7 fL (80.0-100.0); Mean Platelet Volume 7.5; Monocytes # (A) 0.5 k/uL (0-1.0); Monocytes % (A) 6 %; Neutrophils # (A) 6.2 k/uL (1.3-7.7); Neutrophils % (A) 68 %; Platelet Count 157 k/uL (150-450); RBC 4.39 m/uL (4.30-5.90); WBC 9.2 k/uL (3.8-10.6)
[2023-12-25 07:52] LABS: African American GFR (CKD) 69 (>60 ml/min/1.73 sqM); Anion Gap 4 mmol/L; Blood Urea Nitrogen 26 mg/dL (9-20); Calcium 8.3 mg/dL (8.4-10.2); Carbon Dioxide 21 mmol/L (22-30); Chloride 112 mmol/L (98-107); Glucose 139 mg/dL (74-99); Non-African American GFR(CKD) 59 (>60 ml/min/1.73 sqM); Potassium 3.6 mmol/L (3.5-5.1); Sodium 137 mmol/L (137-145)
[2023-12-25] MEDS: MAGNESIUM OXIDE 400 MG TAB PO SCH (08:40)
[2023-12-25] MEDS: PANTOPRAZOLE 40 MG TABLET PO SCH (08:40)
[2023-12-25] MEDS: DAPAGLIFLOZIN PROPANEDIOL 10 MG TABLET PO SCH (08:40)
[2023-12-25] MEDS: CLOPIDOGREL 75 MG TAB PO SCH (08:40)
[2023-12-25] MEDS: LINAGLIPTIN 5 MG TABLET PO SCH (08:40)
[2023-12-25] MEDS: lisinopriL 5 MG TAB PO SCH (08:40)
[2023-12-25 09:20] VITALS: BP 132/83; TEMP 97.8
--- NOTE | 2023-12-25 09:34 | P.DS ---
Providers Date of admission: 12/24/23 Attending physician: Toni Smith Primary care physician: Homar Browning [facility] Course: patient is 73-year-old male who follows in the office with Dr. Smith. He presented yesterday to undergo pulmonary vein isolation with Dr. Smith. the patient underwent pulmonary vein isolation as well as left septal ablation and left atrial roof ablation. The patient remained in atrial fibrillation at the end of the procedure required electrical cardioversion. Patient was interviewed and examined resting comfortably in bed. He states he did well overnight. He does have sore throats, but denies any chest pain or difficulty breathing GENERAL: Well-appearing, well-nourished and in no acute distress. NECK: Supple without JVD or thyromegaly. LUNGS: Breath sounds clear to auscultation bilaterally. Respiration equal and unlabored. No wheezes, rales or rhonchi. HEART: Irregular rate and rhythm without murmurs, rubs or gallops. S1 and S2 heard. EXTREMITIES: Normal range of motion, no edema. No clubbing or cyanosis. Periphe ral pulses intact and strong.bilateral groin sites are healed TELEMETRY: sinus rhythm with frequent PACs IMPRESSION: symptomatic recurrent atrial fibrillation Hypertension Diabetes Coronary artery disease Ischemic cardiomyopathy PLAN: continue current medication regimen including anticoagulation encourage ambulation patient may be discharged by noon I am dictating on behalf of Dr Toni Smith's history/physical and assessment/plan. Plan - Discharge Summary Discharge Rx Participant: No New Discharge Prescriptions: Continue Pantoprazole Sodium [Protonix] 40 mg PO DAILY Levothyroxine Sodium [Synthroid] 50 mcg PO DAILY Tamsulosin HCl [Flomax] 0.8 mg PO HS Ondansetron Odt [Zofran ODT] 4 mg PO Q4HR PRN PRN Reason: Nausea sitaGLIPtin PHOSPHATE [Januvia] 100 mg PO DAILY #30 tab Atorvastatin [Lipitor] 80 mg PO HS #90 tab lisinopriL [Zestril] 5 mg PO DAILY #90 tab Clopidogrel [Plavix] 75 mg PO DAILY carvediloL [Coreg] 3.125 mg PO BID Apixaban [Eliquis] 5 mg PO BID Nitroglycerin Sl Tabs [Nitrostat] 0.4 mg SUBLINGUAL Q5M PRN #100 tab PRN Reason: Chest Pain Magnesium Oxide [Mag-Ox] 400 mg PO DAILY 30 Days #30 tab Dapagliflozin Propanediol [Farxiga] 10 mg PO DAILY Vitamin D3 1 dose PO DAILY Discharge Medication List Levothyroxine Sodium [Synthroid] 50 mcg PO DAILY 06/17/18 [History] Ondansetron Odt [Zofran ODT] 4 mg PO Q4HR PRN 06/17/18 [History] Pantoprazole Sodium [Protonix] 40 mg PO DAILY 06/17/18 [History] Tamsulosin HCl [Flomax] 0.8 mg PO HS 06/17/18 [History] sitaGLIPtin PHOSPHATE [Januvia] 100 mg PO DAILY #30 tab 06/18/18 [Rx] Atorvastatin [Lipitor] 80 mg PO HS #90 tab 12/26/21 [Rx] Magnesium Oxide [Mag-Ox] 400 mg PO DAILY 30 Days #30 tab 12/26/21 [Rx] Nitroglycerin Sl Tabs [Nitrostat] 0.4 mg SUBLINGUAL Q5M PRN #100 tab 12/26/21 [Rx] lisinopriL [Zestril] 5 mg PO DAILY #90 tab 12/26/21 [Rx] Apixaban [Eliquis] 5 mg PO BID 12/21/23 [History] Clopidogrel [Plavix] 75 mg PO DAILY 12/21/23 [History] Dapagliflozin Propanediol [Farxiga] 10 mg PO DAILY 12/21/23 [History] Vitamin D3 1 dose PO DAILY 12/21/23 [History] carvediloL [Coreg] 3.125 mg PO BID 12/21/23 [History] Follow up Appointment(s)/Referral(s): Toni Smith MD [STAFF PHYSICIAN] - 1 Week Activity/Diet/Wound Care/Special Instructions: Post EP study - Ablation instructions 1. Keep access sites dry for 2 days. 2. No heavy lifting or straining for 2 days. 3. Avoid bending the hips repeatedly for 2 days. 4. You may go up and down stairs slowly Call if the following is noted 1. Bleeding, increasing swelling or pain at the access sites. 2. Increasing chest discomfort, especially upon taking a deep breath. 3. Increasing shortness of breath, at rest or with exertion. 4. Undue cough / phlegm 5. Difficulty or pain while swallowing. 6. Pain or change in color in the extremities. 7. Fever, chills, rigors. 8. Increasing headache or neurologic symptoms. 9. Dizziness, fainting, palpitations Eliquis 5 mg twice daily for 1 week Thereafter reduce it back down to 2.5 mg twice daily Continue all other medications Discharge Disposition: HOME SELF-CARE
== END 2023-12-25 12:41 | disposition home or self-care (01) ==
LOC: CATHEP 09:25 → 3SCARD 15:13 → 6NMEDSUR 15:13 → CATHEP 15:13
PROVIDERS: ATTEND Internal Medicine Clinical Cardiac Electrophysiology
DX: I25.5 Ischemic cardiomyopathy (principal); I48.0 Paroxysmal atrial fibrillation; I25.2 Old myocardial infarction; I25.10 Atherosclerotic heart disease of native coronary artery without angina pectoris; I12.9 Hypertensive chronic kidney disease with stage 1 through stage 4 chronic kidney disease, or unspecified chronic kidney disease; E11.22 Type 2 diabetes mellitus with diabetic chronic kidney disease; N18.9 Chronic kidney disease, unspecified; M19.90 Unspecified osteoarthritis, unspecified site; K21.9 Gastro-esophageal reflux disease without esophagitis; E78.5 Hyperlipidemia, unspecified; Z79.01 Long term (current) use of anticoagulants; Z79.02 Long term (current) use of antithrombotics/antiplatelets; Z79.84 Long term (current) use of oral hypoglycemic drugs; Z79.899 Other long term (current) drug therapy; Z86.711 Personal history of pulmonary embolism; Z95.5 Presence of coronary angioplasty implant and graft
CPT/HCPCS: 92960; 93656; 93657; 86900; 86901; 80053; 80048; 84443; 85025; 86850; C1759; C1894 ×2; C1769 ×4; C1760 ×2; C1730 ×2; C1731; C1893; C1733; C1766; C1732; J2720; J1644 ×4; J2001; J0131; Q9966

== ENCOUNTER → 2024-02-22 | Outpatient (CLI) | payer MEDICARE, OTHER ==
--- NOTE | 2024-02-22 12:18 | XR ---
EXAMINATION TYPE: XR chest 2V DATE OF EXAM: 02/22/2024 COMPARISON: 12/21/2021 INDICATION: Chronic bronchitis cough x3 weeks TECHNIQUE: Frontal and lateral views of the chest are obtained. FINDINGS: The heart size is normal. The pulmonary vasculature is normal. The lungs are clear. IMPRESSION: 1. No acute pulmonary process. [facility] Brianne Palomares, , 02/22/2024 12:16 PM
== END | disposition home or self-care (01) ==
LOC: RADXRMAIN 11:59
PROVIDERS: ATTEND Family Medicine
DX: J42 Unspecified chronic bronchitis (principal)
CPT/HCPCS: 71046

== ENCOUNTER 2024-04-07 07:54 | Day surgery (SDC) | payer MEDICARE, OTHER ==
[2024-04-07] MEDS: IV FLUID CONTINUATION 1,000 ML IV ONE (08:26)
[2024-04-07 08:36] VITALS: TEMP 97.2
[2024-04-07] MEDS: LACTATED RINGERS 1,000 ML IV SCH (08:46)
[2024-04-07 08:51] LABS: Glucose,Whole Blood 146 mg/dL (70-110)
[2024-04-07] MEDS ORDERED: LIDOCAINE 1% INJ 10MG/ML (20 ML MDV) ONE (09:16)
[2024-04-07] MEDS ORDERED: PROPOFOL 10 MG/ML 20 ML VIAL IV ONE (09:16)
--- NOTE | 2024-04-07 09:17 | P.GSHP ---
History of Present Illness H&P Date: 04/07/24 CHIEF COMPLAINT: Colon screen HISTORY OF PRESENT ILLNESS: The patient is a 73-year-old male who presents for colon screen. Lower endoscopy was offered for further evaluation and management. PAST MEDICAL HISTORY: Please see list. PAST SURGICAL HISTORY: Please see list. MEDICATIONS: Please see list. ALLERGIES: Please see list. SOCIAL HISTORY: No illicit drug use FAMILY HISTORY: No reports of Crohn disease or ulcerative colitis. REVIEW OF ORGAN SYSTEMS: CONSTITUTIONAL: No reports of fevers or chills. PHYSICAL EXAM: VITAL SIGNS: Stable GENERAL: Well-developed pleasant in no acute distress. HEENT: No scleral icterus. Extraocular movements grossly intact. Moist buccal mucosa. NECK: Supple without lymphadenopathy. CHEST: Unlabored respirations. Equal bilateral excursions. CARDIOVASCULAR: Regular rate and rhythm. Distal 2+ pulses. ABDOMEN: Soft, nontender, nondistended. MUSCULOSKELETAL: No clubbing, cyanosis, or edema. ASSESSMENT: 1. Colon screen. PLAN: 1. Recommend proceeding with a lower endoscopy Past Medical History Past Medical History: Diabetes Mellitus, Hyperlipidemia, Osteoarthritis (OA), Pulmonary Embolus (PE) Additional Past Medical History / Comment(s): HIATAL HERNIA, ULCER, kidney stones History of Any Multi-Drug Resistant Organisms: None Reported Past Surgical History: Heart Catheterization With Stent, Hernia Repair, Joint Replacement Additional Past Surgical History / Comment(s): right knee replaced, UMBILICAL HERNIA Past Anesthesia/Blood Transfusion Reactions: Motion Sickness, Postoperative Nausea & Vomiting (PONV) Date of Last Stent Placement:: 2021 Smoking Status: Never smoker - Past Family History Son(s) Family Medical History: Deep Vein Thrombosis (DVT) Medications and Allergies Home Medications Medication Instructions Recorded Confirmed Type Levothyroxine Sodium [Synthroid] 50 mcg PO DAILY 06/17/18 04/07/24 History Pantoprazole Sodium [Protonix] 40 mg PO DAILY 06/17/18 04/07/24 History Tamsulosin HCl [Flomax] 0.8 mg PO HS 06/17/18 04/07/24 History sitaGLIPtin PHOSPHATE [Januvia] 100 mg PO DAILY #30 tab 06/18/18 04/07/24 Rx Atorvastatin [Lipitor] 80 mg PO HS #90 tab 12/26/21 04/07/24 Rx Magnesium Oxide [Mag-Ox] 400 mg PO DAILY 30 Days #30 tab 12/26/21 04/07/24 Rx lisinopriL [Zestril] 5 mg PO DAILY #90 tab 12/26/21 04/07/24 Rx Apixaban [Eliquis] 5 mg PO BID 12/21/23 04/07/24 History Clopidogrel [Plavix] 75 mg PO DAILY 12/21/23 04/07/24 History carvediloL [Coreg] 3.125 mg PO BID 12/21/23 04/07/24 History Allergies Allergy/AdvReac Type Severity Reaction Status Date / Time Latex, Natural Rubber Allergy Rash/Hives Verified 04/07/24 08:28 Surgical - Exam Vital Signs Temp Pulse Resp BP Pulse Ox 97.2 F L 85 18 145/76 98 04/07/24 08:34 04/07/24 08:34 04/07/24 08:34 04/07/24 08:34 04/07/24 08:34 Results - Labs Abnormal Lab Results - Last 24 Hours (Table) 04/07/24 Range/Units 08:43 POC Glucose (mg/dL) 146 H (70-110) mg/dL
[2024-04-07 10:25] VITALS: PULSE 61; RESP 18
[2024-04-07 10:28] VITALS: BP 143/76
--- NOTE | 2024-04-07 10:34 | P.PCN ---
Date of Procedure: 04/07/24 Description of Procedure: PREOPERATIVE DIAGNOSIS: Personal history of colon polyps Family history malignant colon polyps Colonoscopy screening POSTOPERATIVE DIAGNOSIS: Tubular adenoma descending colon Pandiverticulosis Sigmoid diverticulosis Internal hemorrhoids, grade 2 OPERATION: Colonoscopy to the ileocecal valve and appendiceal orifice, cecum Colonoscopy with hot snare polypectomy SURGEON: Shauna Argueta MD. ANESTHESIA: MAC. INDICATIONS: The patient is an 73-year-old male who presents family history of malignant colon polyps and personal history of colon polyps. Last colonoscopy 5 years. Benefits and risks were described and informed consent was obtained. DESCRIPTION OF PROCEDURE: The patient had undergone Sutab prep. The patient had been brought into the operating room and laid in the left lateral decubitus position. After adequate intravenous sedation, the rectum was examined with 2% lidocaine jelly. The prostate was unremarkable. External hemorrhoids were encountered. The rectal tone was within normal limits. No lesions were palpated in the rectal vault. An Olympus colonoscope was advanced until the cecum, ileocecal valve and appendiceal orifice were clearly viewed. The prep was excellent. Sigmoid diverticulosis was encountered. Colonic polyps were found and removed. No evidence of focal colitis was found. Retroflexion of the scope demonstrated grade 2 internal hemorrhoids without active bleeding or inflammation. The colon was desufflated. The patient had tolerated the procedure well. Withdrawal time was over 6 minutes. FINDINGS: Aronchick preparation quality scale 1 (1-5) Internal hemorrhoids, grade 2 External hemorrhoids, grade 2. No arteriovenous malformations. Sigmoid diverticulosis with pandiverticulosis Removal of 4 polyps: - Snare polypectomy descending colon x 4, 5 mm to 15 tubulovillous adenomas No focal colitis. RECOMMENDATIONS: Given severity of tubular adenomas, recommend repeat colonoscopy 1 year, 2024 Plan - Discharge Summary Discharge Rx Participant: No New Discharge Prescriptions: Continue Pantoprazole Sodium [Protonix] 40 mg PO DAILY Levothyroxine Sodium [Synthroid] 50 mcg PO DAILY Tamsulosin HCl [Flomax] 0.8 mg PO HS sitaGLIPtin PHOSPHATE [Januvia] 100 mg PO DAILY #30 tab Atorvastatin [Lipitor] 80 mg PO HS #90 tab lisinopriL [Zestril] 5 mg PO DAILY #90 tab Clopidogrel [Plavix] 75 mg PO DAILY carvediloL [Coreg] 3.125 mg PO BID Apixaban [Eliquis] 5 mg PO BID Magnesium Oxide [Mag-Ox] 400 mg PO DAILY 30 Days #30 tab Discharge Medication List Levothyroxine Sodium [Synthroid] 50 mcg PO DAILY 06/17/18 [History] Pantoprazole Sodium [Protonix] 40 mg PO DAILY 06/17/18 [History] Tamsulosin HCl [Flomax] 0.8 mg PO HS 06/17/18 [History] sitaGLIPtin PHOSPHATE [Januvia] 100 mg PO DAILY #30 tab 06/18/18 [Rx] Atorvastatin [Lipitor] 80 mg PO HS #90 tab 12/26/21 [Rx] Magnesium Oxide [Mag-Ox] 400 mg PO DAILY 30 Days #30 tab 12/26/21 [Rx] lisinopriL [Zestril] 5 mg PO DAILY #90 tab 12/26/21 [Rx] Apixaban [Eliquis] 5 mg PO BID 12/21/23 [History] Clopidogrel [Plavix] 75 mg PO DAILY 12/21/23 [History] carvediloL [Coreg] 3.125 mg PO BID 12/21/23 [History] Follow up Appointment(s)/Referral(s): Shauna Argueta MD [STAFF PHYSICIAN] - As Needed Patient Instructions/Handouts: Diverticulosis Diet (GEN), Colorectal Polyps (GEN) Activity/Diet/Wound Care/Special Instructions: Do not resume Plavix or Eliquis until 04/11/2024 Repeat colonoscopy 1 year, 2024 Discharge Disposition: HOME SELF-CARE
== END 2024-04-07 10:57 | disposition home or self-care (01) ==
LOC: ORWHC2ENDO 07:54
PROVIDERS: ATTEND Surgery Plastic and Reconstructive Surgery
DX: Z12.11 Encounter for screening for malignant neoplasm of colon (principal); K57.30 Diverticulosis of large intestine without perforation or abscess without bleeding; K64.1 Second degree hemorrhoids; E11.9 Type 2 diabetes mellitus without complications; M19.90 Unspecified osteoarthritis, unspecified site; E78.5 Hyperlipidemia, unspecified; Z91.040 Latex allergy status; Z91.048 Other nonmedicinal substance allergy status; I25.2 Old myocardial infarction; I25.10 Atherosclerotic heart disease of native coronary artery without angina pectoris; I10 Essential (primary) hypertension; K21.9 Gastro-esophageal reflux disease without esophagitis; D12.4 Benign neoplasm of descending colon; Z80.0 Family history of malignant neoplasm of digestive organs
CPT/HCPCS: 88305; 45385; J2003; J2704

== ENCOUNTER 2024-12-31 11:29 | Emergency (ER) | payer MEDICARE, OTHER ==
[2024-12-31 11:32] VITALS: RESP 18
--- NOTE | 2024-12-31 11:46 | ED ---
General Adult HPI - General Chief complaint: Neck Pain/Injury Stated complaint: neck pain Time Seen by Provider: 12/31/24 11:31 Source: patient, RN notes reviewed Mode of arrival: ambulatory Limitations: no limitations - History of Present Illness Initial comments: Patient is a 74-year-old male presented to the emergency department with concerns with neck pain. Symptoms started a couple days ago. Discomfort is posterior neck with movement. Any small movement causes significant discomfort at this time. No injury. No history of similar symptoms previously. Patient denies headache. No weakness. - Related Data Home Medications Medication Instructions Recorded Confirmed Levothyroxine Sodium [Synthroid] 50 mcg PO DAILY 06/17/18 04/07/24 Pantoprazole Sodium [Protonix] 40 mg PO DAILY 06/17/18 04/07/24 Tamsulosin HCl [Flomax] 0.8 mg PO HS 06/17/18 04/07/24 Apixaban [Eliquis] 5 mg PO BID 12/21/23 04/07/24 Clopidogrel [Plavix] 75 mg PO DAILY 12/21/23 04/07/24 carvediloL [Coreg] 3.125 mg PO BID 12/21/23 04/07/24 Previous Rx's Medication Instructions Recorded sitaGLIPtin PHOSPHATE [Januvia] 100 mg PO DAILY #30 tab 06/18/18 Atorvastatin [Lipitor] 80 mg PO HS #90 tab 12/26/21 Magnesium Oxide [Mag-Ox] 400 mg PO DAILY 30 Days #30 tab 12/26/21 lisinopriL [Zestril] 5 mg PO DAILY #90 tab 12/26/21 Cyclobenzaprine [Flexeril] 10 mg PO TID PRN #12 tablet 12/31/24 Allergies Allergy/AdvReac Type Severity Reaction Status Date / Time Latex, Natural Rubber Allergy Rash/Hives Verified 12/31/24 11:32 Review of Systems ROS Statement: Those systems with pertinent positive or pertinent negative responses have been documented in the HPI. ROS Other: All systems not noted in ROS Statement are negative. Constitutional: Denies: fever Eyes: Denies: eye pain ENT: Denies: ear pain Respiratory: Denies: dyspnea Cardiovascular: Denies: chest pain Endocrine: Denies: fatigue Gastrointestinal: Denies: abdominal pain Musculoskeletal: Reports: as per HPI Neurological: Denies: headache, weakness Past Medical History Past Medical History: Diabetes Mellitus, Hyperlipidemia, Osteoarthritis (OA), Pulmonary Embolus (PE) Additional Past Medical History / Comment(s): HIATAL HERNIA, ULCER, kidney stones History of Any Multi-Drug Resistant Organisms: None Reported Past Surgical History: Heart Catheterization With Stent, Hernia Repair, Joint Replacement Additional Past Surgical History / Comment(s): right knee replaced, UMBILICAL HERNIA Past Anesthesia/Blood Transfusion Reactions: Motion Sickness, Postoperative Nausea & Vomiting (PONV) Date of Last Stent Placement:: 2021 Past Psychological History: No Psychological Hx Reported Smoking Status: Never smoker Past Alcohol Use History: None Reported Past Drug Use History: None Reported - Past Family History Son(s) Family Medical History: Deep Vein Thrombosis (DVT) General Exam Limitations: no limitations General appearance: alert, in no apparent distress Head exam: Present: normocephalic Eye exam: Present: normal appearance Neck exam: Present: tenderness (Posterior bilateral neck. No midline tendernes s. Pain with range of motion.) Respiratory exam: Present: normal lung sounds bilaterally Cardiovascular Exam: Present: regular rate, normal rhythm Expanded Peripheral pulses: 2+: Radial (R), Radial (L) GI/Abdominal exam: Present: soft. Absent: tenderness Extremities exam: Present: normal inspection. Absent: pedal edema, calf tenderness Neurological exam: Present: alert, oriented X3, CN II-XII intact. Absent: motor sensory deficit Expanded Neurological exam: Present: protecting the airway Speech: Present: fluid speech Cranial nerves: EOM's Intact: Normal Motor strength exam: RUE: 5, LUE: 5, RLE: 5, LLE: 5 Eye Response: (4) open spontaneously Motor Response: (6) obeys commands Verbal Response: (5) oriented Psychiatric exam: Present: normal affect, normal mood Skin exam: Present: normal color Course Vital Signs 12/31/24 12/31/24 11:30 13:21 Temperature 98.4 F 97.8 F Pulse Rate 84 78 Respiratory 18 18 Rate Blood Pressure 142/95 139/87 O2 Sat by Pulse 98 98 Oximetry Medical Decision Making - Medical Decision Making Was pt. sent in by a medical professional or institution (, PA, MANAGER [employer], urgent care, hospital, or fdc...) When possible be specific @ -No Did you speak to anyone other than the patient for history (EMS, parent, family, police, friend...)? What history was obtained from this source @ -No Did you review nursing and triage notes (agree or disagree)? Why? @ -I reviewed and agree with nursing and triage notes Were old charts reviewed (outside hosp., previous admission, EMS record, old EKG, old radiological studies, urgent care reports/EKG's, fdc records)? Report findings @ -No old charts were reviewed Differential Diagnosis (chest pain, altered mental status, abdominal pain women, abdominal pain men, vaginal bleeding, weakness, fever, dyspnea, syncope, headache, dizziness, GI bleed, back pain, seizure, CVA, palpatations, mental hea lth, musculoskeletal)? @ -Differential Headache: Migraine, tension, cluster, carbon monoxide, central venous thrombosis, pension karma temporal arteritis, acute closure glaucoma, intercranial hemorrhage, mastoiditis, sinusitis, head injury, this is not meant to be an all-inclusive list. EKG interpreted by me (3pts min.). @ -As above X-rays interpreted by me (1pt min.). @ -None done CT interpreted by me (1pt min.). @ -CT brain and cervical spine without acute abnormality U/S interpreted by me (1pt. min.). @ -None done What testing was considered but not performed or refused? (CT, X-rays, U/S, labs)? Why? @ -None What meds were considered but not given or refused? Why? @ -None Did you discuss the management of the patient with other professionals (professionals i.e. , PA, MANA[employer], lab, RT, psych nurse, foster care social worker, technical manager, teacher, traffic division commanding officer, lining caser)? Give summary @ -No Was smoking cessation discussed for >3mins.? @ -No Was critical care preformed (if so, how long)? @ -No Were there social determinants of health that impacted care today? How? (Homelessness, low income, unemployed, alcoholism, drug addiction, transportation, low edu. Level, literacy, decrease access to med. care, long term, rehab)? @ -No Was there de-escalation of care discussed even if they declined (Discuss DNR or withdrawal of care, Hospice)? DNR status @ -No What co-morbidities impacted this encounter? (DM, HTN, Smoking, COPD, CAD, Cancer, CVA, ARF, Chemo, Hep., AIDS, mental health diagnosis, sleep apnea, morbid obesity)? @ -None Was patient admitted / discharged? Hospital course, mention meds given and route, prescriptions, significant lab abnormalities, going to OR and other pertinent info. @ -Patient presents with neck discomfort. Exam appears musculoskeletal. Evaluation unremarkable. Patient reevaluated and improved however not completely resolved. Patient and family updated on results and need for follow- up Undiagnosed new problem with uncertain prognosis? @ -No Drug Therapy requiring intensive monitoring for toxicity (Heparin, Nitro, Insulin, Cardizem)? @ -No Were any procedures done? @ -No Diagnosis/symptom? @ -Neck pain Acute, or Chronic, or Acute on Chronic? @ -Acute Uncomplicated (without systemic symptoms) or Complicated (systemic symptoms)? @ -Default Side effects of treatment? @ -No Exacerbation, Progression, or Severe Exacerbation? @ -No Poses a threat to life or bodily function? How? (Chest pain, [place], [place], pneumonia, PE, COPD, DKA, ARF, appy, cholecystitis, CVA, Diverticulitis, Homicidal, Suicidal, threat to staff... and all critical care pts) @ -No - Lab Data Result diagrams: 12/31/24 12:13 12/31/24 12:13 Lab Results 12/31/24 12/31/24 12/31/24 Range/Units 12:13 12:13 12:13 WBC 9.15 (4.50-10.00) 10*3/uL RBC 5.06 (4.40-5.60) 10*6/uL Hgb 14.3 (13.0-17.0) g/dL Hct 43.1 (39.6-50.0) % MCV 85.2 (80.0-97.0) fL MCH 28.3 (27.0-32.0) pg MCHC 33.2 (32.0-37.0) g/dL Plt Count 145 (140-440) 10*3/uL MPV 9.3 L (9.5-12.2) fL Immature Gran % (Auto) 0.4 % Neutrophils % 73.5 % Lymphocytes % 17.4 % Monocytes % 5.8 % Eosinophils % 2.4 % Basophils % 0.5 % Immature Gran # 0.04 (0.00-0.04) 10*3/uL Neutrophils # 6.72 (1.80-7.70) 10*3/uL Lymphocytes # 1.59 (0.90-5.00) 10*3/uL Monocytes # 0.53 (0.20-1.00) 10*3/uL Eosinophils # 0.22 (0.04-0.35) 10*3/uL Basophils # 0.05 (0.00-0.10) 10*3/uL PT 12.3 (10.0-12.5) sec INR 1.1 (<1.2) APTT 24.1 (22.0-30.0) sec Sodium 137 (137-145) mmol/L Potassium 4.5 (3.5-5.1) mmol/L Chloride 107 (98-107) mmol/L Carbon Dioxide 19 L (22-30) mmol/L Anion Gap 11 mmol/L BUN 25 H (9-20) mg/dL Creatinine 1.23 (0.66-1.25) mg/dL Est GFR (CKD-EPI)AfAm 66 (>60 ml/min/1.73 sqM) Est GFR (CKD-EPI)NonAf 57 (>60 ml/min/1.73 sqM) Glucose 297 H (74-99) mg/dL Calcium 8.9 (8.4-10.2) mg/dL Total Bilirubin 1.1 (0.2-1.3) mg/dL AST 28 (17-59) U/L ALT 25 (4-49) U/L Alkaline Phosphatase 94 (38-126) U/L Total Protein 7.2 (6.3-8.2) g/dL Albumin 4.0 (3.5-5.0) g/dL Disposition Clinical Impression: Neck pain Disposition: HOME SELF-CARE Condition: Stable Instructions (If sedation given, give patient instructions): Cervical Strain (ED) Additional Instructions: Prescription for muscle laxer sent to pharmacy. [id number] Tylenol as needed. These may be used together. Please do follow-up with your primary care physician in the next day or 2 for recheck. Return for headache, weakness, change or worsening symptoms or any other concerns. Prescriptions: Cyclobenzaprine [Flexeril] 10 mg PO TID PRN #12 tablet PRN Reason: Pain Is patient prescribed a controlled substance at d/c from ED?: No Referrals: Homar Browning MD [Primary Care Provider] - 1-2 days Time of Disposition: 13:41
--- NOTE | 2024-12-31 12:09 | CT ---
EXAMINATION TYPE: CT brain cspine wo con DATE OF EXAM: 12/31/2024 COMPARISON: none CLINICAL INDICATION: Male, 74 years old with history of neck pain; PHH, NECK PAIN TECHNIQUE: CT scan of the head and cervical spine are performed without contrast. CT DLP: 1628.[address] CTDI: mGy Automated exposure control for dose reduction was used. FINDINGS: There is no acute intracranial hemorrhage, mass effect, or midline shift identified. The ventricles and sulci are within normal limits in size. The globes are intact and the visualized sinuses are rylee ar. Cervical spine is visualized in its entirety from C1 through upper thoracic levels and demonstrates s atisfactory alignment without evidence of acute fracture or dislocation. Prevertebral soft tissue ap pears within normal limits. The C1-C2 articulation is unremarkable. IMPRESSION: 1. There is no acute fracture or dislocation evident in the cervical spine. 2. No acute intracranial hemorrhage, mass effect, or midline shift is seen. [facility], , 12/31/2024 12:07 PM
[2024-12-31] MEDS: SODIUM CHLORIDE 0.9% 1,000 ML IV STA (12:14)
[2024-12-31] MEDS: ORPHENADRINE 30 MG/ML 2 ML VIAL IVP STA (12:16)
[2024-12-31] MEDS: ACETAMINOPHEN IV (For NPO) 1,000 MG in EMPTY BAG 1 BAG IVPB ONE (12:23)
[2024-12-31 12:26] LABS: Basophils # (A) 0.05 10*3/uL (0.00-0.10); Basophils % (A) 0.5 %; Eosinophils # (A) 0.22 10*3/uL (0.04-0.35); Eosinophils % (A) 2.4 %; HCT 43.1 % (39.6-50.0); HGB 14.3 g/dL (13.0-17.0); Lymphocytes # (A) 1.59 10*3/uL (0.90-5.00); Lymphocytes % (A) 17.4 %; MCH 28.3 pg (27.0-32.0); MCHC 33.2 g/dL (32.0-37.0); MCV 85.2 fL (80.0-97.0); Monocytes # (A) 0.53 10*3/uL (0.20-1.00); Monocytes % (A) 5.8 %; Neutrophils # (A) 6.72 10*3/uL (1.80-7.70); Neutrophils % (A) 73.5 %; Platelet Count 145 10*3/uL (140-440); RBC 5.06 10*6/uL (4.40-5.60); RDW 15.2 % (11.5-14.5); WBC 9.15 10*3/uL (4.50-10.00)
[2024-12-31 12:39] LABS: ALT 25 U/L (4-49); AST 28 U/L (17-59); African American GFR (CKD) 66 (>60 ml/min/1.73 sqM); Albumin 4.0 g/dL (3.5-5.0); Alkaline Phosphatase 94 U/L (38-126); Anion Gap 11 mmol/L; Blood Urea Nitrogen 25 mg/dL (9-20); Calcium 8.9 mg/dL (8.4-10.2); Carbon Dioxide 19 mmol/L (22-30); Chloride 107 mmol/L (98-107); Glucose 297 mg/dL (74-99); Non-African American GFR(CKD) 57 (>60 ml/min/1.73 sqM); Potassium 4.5 mmol/L (3.5-5.1); Sodium 137 mmol/L (137-145); Total Protein 7.2 g/dL (6.3-8.2)
[2024-12-31 12:58] LABS: INR 1.1 (<1.2); Partial Thromboplastin Time 24.1 sec (22.0-30.0); Prothrombin Time 12.3 sec (10.0-12.5)
[2024-12-31 13:22] VITALS: TEMP 97.8
[2024-12-31] MEDS: KETOROLAC 15 MG/ML 1 ML VIAL IVP STA (14:13)
[2024-12-31 14:16] VITALS: BP 134/80; PULSE 61
== END 2024-12-31 14:21 | disposition home or self-care (01) ==
LOC: EC 11:29
DX: M54.2 Cervicalgia (principal); Z91.040 Latex allergy status
CPT/HCPCS: 36415; 80053; 85025; 85610; 85730; 72125; 70450; 99284; 96374; 96375; 96361; J2360; J0131; J1885